=== PATIENT | male | born 1960 | race African-American/Black ===

== ENCOUNTER 2018-11-03 09:11 | Emergency (ER) | payer SELFPAY ==
[2018-11-03] MEDS ORDERED: NA CHLORIDE 0.9% 1,000 ML ONE (10:40)
[2018-11-03 10:48] LABS: Absolute Lymphocytes (CBC) 1.7 K/uL (0.7-4.9); Basophils % 0.5 % (0-1.3); Lymphocytes % 23.9 % (15.3-44.8); MPV 7.4 fL (7.6-11.3); RBC Red Blood Cell Count 4.84 M/uL (4.33-5.43)
[2018-11-03 10:52] LABS: Protime INR 1.09
--- NOTE | 2018-11-03 11:02 | RAD REPORT ---
EXAM DESCRIPTION: CT - Head Brain Wo Cont - 11/03/2018 10:48 am CLINICAL HISTORY: Dizziness COMPARISON: None TECHNIQUE: Computed axial tomography of the head was obtained. IV contrast was not requested. All CT scans are performed using dose optimization technique as appropriate and may include automated exposure control or mA/KV adjustment according to patient size. FINDINGS: Large low-density area is present within probably the right temporal lobe extending into t he right parietal lobe. There is shift of midline structures 12 millimeters to the left. Right tempor al horn of the lateral ventricle is compressed. Fluid within the sinuses/ mastoids is not seen. IMPRESSION: Large low-density area within the right cerebrum likely representing a mass with vasogen ic edema. Subfalcine herniation present Karen from the emergency room notified 10:50 a.m. 11/03/2018
[2018-11-03 11:13] LABS: ALT/SGPT 17 U/L (12-78); AST/SGOT 11 U/L (15-37); Albumin 3.4 g/dL (3.4-5.0); Alkaline Phosphatase 52 U/L (45-117); BUN Blood Urea Nitrogen 13 mg/dL (7-18); Bicarbonate 27 mmol/L (21-32); Bilirubin Direct 0.1 mg/dL (0-0.2); Bilirubin Total 0.6 mg/dL (0.2-1.0); Glucose Level 94 mg/dL (74-106); Lipase 89 U/L (73-393); Magnesium 2.1 mg/dL (1.8-2.4); NT PRO-BNP 196 pg/mL (<125); Protein, Total 7.3 g/dL (6.4-8.2); Sodium Level 142 mmol/L (136-145); Troponin (Emerg Dept Use Only) < 0.02 ng/mL (0.0-0.045)
[2018-11-03] MEDS ORDERED: dexAMETHasone 10 MG/ML VIAL ONE (11:18)
--- NOTE | 2018-11-03 11:31 | EKG ---
Test Date: 2018-11-03 Test Time: 10:39:05 Visual Education Director: NINFA MEASUREMENT RESULTS: Intervals: Rate: 51 IA: 188 QRSD: 90 QT: 442 QTc: 407 [place]: P: 19 IA: 188 QRS: 88 T: -39 INTERPRETIVE STATEMENTS: Sinus bradycardia Voltage criteria for left ventricular hypertrophy T wave abnormality, consider inferior ischemia Abnormal ECG No previous ECG available for comparison Electronically Signed On 11-03-18 11:30:34 CDT by Lauri More
--- NOTE | 2018-11-03 11:34 | RAD REPORT ---
EXAM DESCRIPTION: RAD - Chest Single View - 11/03/2018 11:21 am CLINICAL HISTORY: COUGH Chest pain. COMPARISON: CHEST PA AND LAT 2 VIEW dated 02/27/2012 FINDINGS: Portable technique limits examination quality. The lungs are grossly clear. The heart is upper limit of normal in size. No displaced fractures. IMPRESSION: No acute intrathoracic process suspected.
--- NOTE | 2018-11-03 11:44 | EDPHYS ---
Physician Documentation [facility] Name: Sascha Wing Age: 58 yrs Sex: Male : 1960 Arrival Date: 11/03/2018 Time: 09:15 Bed 7 Private MD: Nona Howell C ED Physician Kennedy Forte HPI: 11/03 10:30 This 58 yrs old Black Male presents to ER via Ambulatory with complaints of Headache, andrea General Weakness. 10:30 The patient complains of pain to the top of head, forehead, right judaism, left frontal andrea area, left side of the back of head, right frontal area and right temporal area. The patient describes the headache as aching. Onset: The symptoms/episode began/occurred 14 day(s) ago. Associated signs and symptoms: Pertinent positives: dizziness, weakness. Severity of symptoms: At its worst the pain was mild, moderate, in the emergency department the pain is unchanged. Headache History: Denies prior headaches. The symptoms are alleviated by nothing. the symptoms are aggravated by nothing. The patient has not experienced similar symptoms in the past. Historical: - Allergies: 09:20 No Known Allergies; sv - Home Meds: 11:55 amlodipine oral [Active]; Lisinopril Oral [Active]; tw2 - PMHx: 11:55 Hypertension; tw2 - Immunization history:: Adult Immunizations. - Family history:: not pertinent. - Social history:: Smoking status: Patient uses tobacco products, smokes one pack cigarettes per day. - Ebola Screening: : Patient denies travel to an Ebola-affected area in the 21 days before illness onset. ROS: 10:33 Constitutional: Negative for fever, chills, and weight loss, Eyes: Negative for injury, andrea pain, redness, and discharge, ENT: Negative for injury, pain, and discharge, Neck: Negative for injury, pain, and swelling, Cardiovascular: Negative for chest pain, palpitations, and edema, Respiratory: Negative for shortness of breath, cough, wheezing, and pleuritic chest pain, Abdomen/GI: Negative for abdominal pain, nausea, vomiting, diarrhea, and constipation, Back: Negative for injury and pain, : Negative for injury, bleeding, discharge, and swelling, MS/Extremity: Negative for injury and deformity, Skin: Negative for injury, rash, and discoloration, Psych: Negative for depression, anxiety, suicide ideation, homicidal ideation, and hallucinations, Allergy/Immunology: Negative for hives, rash, and allergies, Endocrine: Negative for neck swelling, polydipsia, polyuria, polyphagia, and marked weight changes, Hematologic/Lymphatic: Negative for swollen nodes, abnormal bleeding, and unusual bruising. 10:33 Neuro: Positive for gait disturbance, weakness. Exam: 10:33 Constitutional: This is a well developed, well nourished patient who is awake, alert, andrea and in no acute distress. Head/Face: Normocephalic, atraumatic. Eyes: Pupils equal round and reactive to light, extra-ocular motions intact. Lids and lashes normal. Conjunctiva and sclera are non-icteric and not injected. Cornea within normal limits. Periorbital areas with no swelling, redness, or edema. ENT: Nares patent. No nasal discharge, no septal abnormalities noted. Tympanic membranes are normal and external auditory canals are clear. Oropharynx with no redness, swelling, or masses, exudates, or evidence of obstruction, uvula midline. Mucous membranes moist. Neck: Trachea midline, no thyromegaly or masses palpated, and no cervical lymphadenopathy. Supple, full range of motion without nuchal rigidity, or vertebral point tenderness. No Meningismus. Chest/axilla: Normal chest wall appearance and motion. Nontender with no deformity. No lesions are appreciated. Cardiovascular: Regular rate and rhythm with a normal S1 and S2. No gallops, murmurs, or rubs. Normal PMI, no JVD. No pulse deficits. Respiratory: Lungs have equal breath sounds bilaterally, clear to auscultation and percussion. No rales, rhonchi or wheezes noted. No increased work of breathing, no retractions or nasal flaring. Abdomen/GI: Soft, non-tender, with normal bowel sounds. No distension or tympany. No guarding or rebound. No evidence of tenderness throughout. Back: No spinal tenderness. No costovertebral tenderness. Full range of motion. Male : Normal genitalia with no discharge or lesions. Skin: Warm, dry with normal turgor. Normal color with no rashes, no lesions, and no evidence of cellulitis. MS/ Extremity: Pulses equal, no cyanosis. Neurovascular intact. Full, normal range of motion. Neuro: Awake and alert, GCS 15, oriented to person, place, time, and situation. Cranial nerves II-XII grossly intact. Motor strength 5/5 in all extremities. Sensory grossly intact. Cerebellar exam normal. Normal gait. Psych: Awake, alert, with orientation to person, place and time. Behavior, mood, and affect are within normal limits. Vital Signs: 09:20 BP 147 / 94; Pulse 61; Resp 16; Temp 98.3; Pulse Ox 97% ; Weight 83.46 kg; Height 6 ft. sv 2 in. (187.96 cm); Pain 2/10; 10:00 BP 152 / 87; Pulse 57; Resp 17; Pulse Ox 98% on R/A; tw2 10:59 BP 160 / 80; Pulse 53; Resp 18; Pulse Ox 95% on R/A; tw2 12:00 BP 153 / 78; Pulse 54; Resp 16; Pulse Ox 97% ; bp 12:45 BP 157 / 89; Pulse 51; Resp 15; Temp 98.5; Pulse Ox 97% ; bp 09:20 Body Mass Index 23.62 (83.46 kg, 187.96 cm) sv MDM: 09:36 Patient medically screened. [facility] 10:35 Data reviewed: vital signs, nurses notes, lab test result(s), EKG, radiologic studies, [facility] CT scan, MRI, plain films. 11/03 10:25 Order name: Basic Metabolic Panel [facility] 11/03 10:25 Order name: CBC with Diff [facility] 11/03 10:25 Order name: LFT's [facility] 11/03 10:25 Order name: Magnesium [facility] 11/03 10:25 Order name: NT PRO-BNP [facility] 11/03 10:25 Order name: PT-INR [facility] 11/03 10:25 Order name: Troponin (emerg Dept Use Only) [facility] 11/03 10:25 Order name: Lipase [facility] 11/03 10:25 Order name: Urine Culture [facility] 11/03 10:50 Order name: Urine Dipstick--Ancillary (enter results) co 11/03 10:57 Order name: CBC with Automated Diff; Complete Time: 11:04 EDPR 11/03 11:03 Order name: Protime (+INR); Complete Time: 11:04 [facility] 11/03 11:14 Order name: Basic Metabolic Panel; Complete Time: 12:03 EDPR 11/03 11:14 Order name: Liver (Hepatic) Function; Complete Time: 12:03 [facility] 11/03 10:25 Order name: XRAY Chest (1 view) [facility] 11/03 10:25 Order name: EKG; Complete Time: 10:27 [facility] 11/03 10:25 Order name: Cardiac monitoring; Complete Time: 10:32 [facility] 11/03 10:25 Order name: EKG - Nurse/Tech; Complete Time: 10:37 [facility] 11/03 10:25 Order name: IV Saline Lock; Complete Time: 10:41 [facility] 11/03 10:25 Order name: Labs collected and sent; Complete Time: 10:41 [facility] 11/03 10:25 Order name: CT Head Brain wo Cont [facility] 11/03 10:25 Order name: MRI Stroke Protocol [facility] 11/03 11:14 Order name: Troponin (Emerg Dept Use Only); Complete Time: 12:03 [facility] 11/03 11:14 Order name: NT PRO-BNP; Complete Time: 12:03 [facility] 11/03 11:15 Order name: Magnesium; Complete Time: 12:03 [facility] 11/03 11:15 Order name: Lipase; Complete Time: 12:03 [facility] 11/03 12:31 Order name: Urine Dipstick-Ancillary [facility] 11/03 10:25 Order name: O2 Per Protocol; Complete Time: 10:33 [facility] 11/03 10:25 Order name: O2 Sat Monitoring; Complete Time: 10:33 [facility] 11/03 10:25 Order name: Urine Dipstick-Ancillary (obtain specimen); Complete Time: 10:41 [facility] 11/03 11:04 Order name: Seizure Precautions; Complete Time: 11:20 [facility] Administered Medications: 10:35 Drug: NS 0.9% 1000 ml Route: IV; Rate: 125 ml/hr; Site: right antecubital; bp 12:58 Follow up: IV Status: Infusion continued upon transfer bp 11:19 Drug: Decadron - Dexamethasone 10 mg Route: IVP; Site: right antecubital; bp 12:25 Follow up: Response: No adverse reaction bp 12:25 Drug: Keppra 1000 mg Route: IV; Rate: per protocol; Site: right antecubital; bp 12:58 Follow up: IV Status: Completed infusion; IV Intake: 100ml bp Disposition: 11/03/18 11:08 Transfer ordered to [facility]. Diagnosis are Ataxic gait, Headache, Cerebral edema - brain mass, 12 mm right to left shift. - Reason for transfer: Higher level of care. - Accepting physician is to [facility]. - Condition is Fair. - Problem is new. - Symptoms have improved. Signatures: Dispatcher [employer] Constance Griffith RN RN Kennedy Morales MD MD cha Wise, Tara RN RN tw2 Artemio Cesar RN RN bp Corrections: (The following items were deleted from the chart) 13:00 11:08 11/03/2018 11:08 Transfer ordered to [facility]. Diagnosis is bp Ataxic gait; Headache; Cerebral edema - brain mass, 12 mm right to left shift. Reason for transfer: Higher level of care. Accepting physician is to [facility]. Condition is Fair. Problem is new. Symptoms have improved. andrea
--- NOTE | 2018-11-03 11:44 | ER ---
Nurse's Notes [facility] Name: Sascha Wing Age: 58 yrs Sex: Male : 1960 Arrival Date: 11/03/2018 Time: 09:15 Bed 7 Private MD: Nona Howell C Diagnosis: Ataxic gait;Headache;Cerebral edema-brain mass, 12 mm right to left shift Presentation: 11/03 09:18 Presenting complaint: Patient states: intermittent headache x 2 weeks and had "a bad sv tooth pulled last week". Spouse states he has been dragging his left foot and unable to hold things in his left hand, fatigue. Pt saw Dr Howell today and he sent him here. Transition of care: patient was not received from another setting of care. Onset of symptoms was October 2018. Risk Assessment: Do you want to hurt yourself or someone else? Patient reports no desire to harm self or others. Care prior to arrival: None. 09:18 Method Of Arrival: Ambulatory sv 09:18 Acuity: LEIGH 3 sv 11:57 Initial Sepsis Screen: Does the patient meet any 2 criteria? No. Patient's initial tw2 sepsis screen is negative. Does the patient have a suspected source of infection? No. Patient's initial sepsis screen is negative. Triage Assessment: 09:18 Headache History: The patient has had previous headaches and this one is different than sv previous episodes, and this one is more severe than previous episodes. General: Appears in no apparent distress. uncomfortable, Behavior is calm, cooperative, appropriate for age. Pain: Complains of pain in forehead Pain currently is 2 out of 10 on a pain scale. Pain began 2 weeks ago. Neuro: Level of Consciousness is awake, alert, obeys commands, Oriented to person, place, time, situation, Moves all extremities. Full function Gait is steady, Speech is normal, Facial symmetry appears normal, Reports headache frontal area, weakness. Respiratory: Respiratory effort is even, unlabored, Respiratory pattern is regular, symmetrical. 11:57 Pain: Also complains of weakness. tw2 Historical: - Allergies: 09:20 No Known Allergies; sv - Home Meds: 11:55 amlodipine oral [Active]; Lisinopril Oral [Active]; tw2 - PMHx: 11:55 Hypertension; tw2 - Immunization history:: Adult Immunizations. - Family history:: not pertinent. - Social history:: Smoking status: Patient uses tobacco products, smokes one pack cigarettes per day. - Ebola Screening: : Patient denies travel to an Ebola-affected area in the 21 days before illness onset. Screenin:56 Abuse screen: Denies threats or abuse. Nutritional screening: No deficits noted. tw2 Tuberculosis screening: No symptoms or risk factors identified. Fall Risk None identified. Assessment: 09:30 General: Appears in no apparent distress. slender, Behavior is calm, cooperative, tw2 appropriate for age, Smells of cigarette smoke. Pain: Complains of pain in right temporal area and right frontal area and right gnosticism and top of head. Neuro: Level of Consciousness is awake, alert, obeys commands, Oriented to person, place, time, situation. Cardiovascular: Heart tones S1 S2 Patient's skin is warm and dry. Respiratory: Airway is patent Respiratory effort is even, unlabored, Respiratory pattern is regular, symmetrical, Breath sounds are clear bilaterally. GI: No signs and/or symptoms were reported involving the gastrointestinal system. Abdomen is flat, Bowel sounds present X 4 quads. : No signs and/or symptoms were reported regarding the genitourinary system. EENT: Reports "i had a tooth pulled on the upper side of my mouth that caused the headaches, but i still feel weak" spouse states "he is just off balanced.. 11:00 Reassessment: Patient appears in no apparent distress at this time. No changes from tw2 previously documented assessment. Patient and/or family updated on plan of care and expected duration. Pain level reassessed. Patient is alert, oriented x 3, equal unlabored respirations, skin warm/dry/pink. 11:58 Reassessment: pt in in MRI at this time, not available for VS. tw2 12:25 Reassessment: PT RETURNED FROM MRI. bp 12:57 Reassessment: REPORT TO EMS, PT CELESTE. bp Vital Signs: 09:20 BP 147 / 94; Pulse 61; Resp 16; Temp 98.3; Pulse Ox 97% ; Weight 83.46 kg; Height 6 ft. sv 2 in. (187.96 cm); Pain 2/10; 10:00 BP 152 / 87; Pulse 57; Resp 17; Pulse Ox 98% on R/A; tw2 10:59 BP 160 / 80; Pulse 53; Resp 18; Pulse Ox 95% on R/A; tw2 12:00 BP 153 / 78; Pulse 54; Resp 16; Pulse Ox 97% ; bp 12:45 BP 157 / 89; Pulse 51; Resp 15; Temp 98.5; Pulse Ox 97% ; bp 09:20 Body Mass Index 23.62 (83.46 kg, 187.96 cm) sv ED Course: 09:15 Patient arrived in ED. ag5 09:16 Nona Howell MD is Private Physician. ag5 09:20 Triage completed. sv 09:20 Arm band placed on. sv 09:21 Bed in low position. Side rails up X2. Adult w/ patient. Seizure precautions initiated. tw2 manager health on. Pulse ox on. NIBP on. 09:22 Oly Magaña RN is Primary Nurse. tw2 09:36 Kennedy Forte MD is Attending Physician. andrea 10:37 Initial lab(s) drawn, by wv, sent to lab. Inserted saline lock: 20 gauge in right dh3 antecubital area, using aseptic technique. Blood collected. 10:41 Urine collected: clean catch specimen, clear. dh3 10:44 EKG done, by injection mold tooling technician. reviewed by Kennedy Forte MD. at1 11:16 X-ray completed. Portable x-ray completed in exam room. jr1 11:54 Awaiting: unsuccessful attempt to call report to [facility] at this time. tw2 12:58 No provider procedures requiring assistance completed. Patient transferred, IV remains bp in place. Administered Medications: 10:35 Drug: NS 0.9% 1000 ml Route: IV; Rate: 125 ml/hr; Site: right antecubital; bp 12:58 Follow up: IV Status: Infusion continued upon transfer bp 11:19 Drug: Decadron - Dexamethasone 10 mg Route: IVP; Site: right antecubital; bp 12:25 Follow up: Response: No adverse reaction bp 12:25 Drug: Keppra 1000 mg Route: IV; Rate: per protocol; Site: right antecubital; bp 12:58 Follow up: IV Status: Completed infusion; IV Intake: 100ml bp Intake: 12:58 IV: 100ml; Total: 100ml. bp Outcome: 11:08 ER care complete, transfer ordered by . andrea 12:58 Transferred by ground EMS to [facility] [place], Transfer form completed. bp 12:58 Condition: stable 12:58 Instructed on the need for transfer. 13:00 Patient left the ED. bp Signatures: Constance Barraza, RN RN Kennedy Morales MD MD cha Ringgold, Jennifer jr1 Shavon Covington, traveling freight agent EKG Tat1 Oly Magaña RN RN tw2 Jeanine Barksdale 3 Artemio Cesar RN RN Aimee Vela ag5 Corrections: (The following items were deleted from the chart) 11:58 11:57 Reassessment: Patient appears in no apparent distress at this time. No changes tw2 from previously documented assessment. Patient and/or family updated on plan of care and expected duration. Pain level reassessed. Patient is alert, oriented x 3, equal unlabored respirations, skin warm/dry/pink. tw2
[2018-11-03] MEDS ORDERED: levETIRAcetam 1,000 MG in NA CHLORIDE 0.9% 100 ML IV ONE (11:45)
--- NOTE | 2018-11-03 12:23 | RAD REPORT ---
EXAM DESCRIPTION: MRI - Brain W/Wo Cont - 11/03/2018 12:09 pm CLINICAL HISTORY: Dizziness COMPARISON: November 03, [address] TECHNIQUE: Axial, sagittal, and coronal magnetic images of the brain were obtained. 20 cc MultiHance administered intravenously FINDINGS: 5.8 centimeter peripherally enhancing mass is present within the right temporal lobe. Port ions of the center do not enhance which likely indicate necrosis. Large amount of surrounding vasogen ic edema. Compression of the right lateral ventricle and right aspect of the brainstem. Shift of the midline st ructures 12 millimeters towards the left. IMPRESSION: 5.8 centimeter enhancing right temporal lobe mass with large amount of surrounding vasog enic edema suspicious for glioblastoma multiform neoplasm Subfalcine herniation
[2018-11-03 12:28] LABS: Urine Blood NEGATIVE (NEG); Urine Glucose NEGATIVE (NEG); Urine Protein NEGATIVE (NEG); Urine Specific Gravity 1.015 (1.005-1.030)
[2018-11-03 13:11] VITALS: O2SAT 97
[2018-11-03 13:13] VITALS: BP 157/89; TEMP 98.5
== END 2018-11-03 13:00 | disposition short-term general hospital (02) ==
LOC: ER 09:11
DX: G93.6 Cerebral edema (principal); G93.89 Other specified disorders of brain; R26.0 Ataxic gait; I10 Essential (primary) hypertension; F17.210 Nicotine dependence, cigarettes, uncomplicated
CPT/HCPCS: 36415; 70450; 70553; 71045; 80048; 80076; 81003; 83690; 83735; 83880; 84484; 85025; 85610; 87086; 87088; 93005; 96361; 96365; 96375; 99285; A9577; J1100; J1953; J7030

== ENCOUNTER 2021-05-05 09:22 | Inpatient (IN) | payer OTHER, BC ==
--- OUTSIDE RECORDS SUMMARY | 2021-05-05 09:30 | XMS REPORT | Continuity of Care Document ---
:1960 Author Organization [facility] t Address [address] [place] [address] Care Team Providers Name Role Phone Alyce Howell MD Primary Care Physician CODY DEGROOT Attending Clinician Unavailable Cody Degroot MD Attending Clinician CODY DEGROOT Attending Clinician Unavailable SOLEDAD YADAV Attending Clinician Unavailable ROBERT CEE Attending Clinician Unavailable MARY MULLEN Attending Clinician Unavailable Addie FITZPATRICK Attending Clinician JOVITA PITTS Attending Clinician Unavailable ALICIA JAIME Admitting Clinician Unavailable JOVITA PITTS Admitting Clinician Unavailable Payers Payer Name Policy Type Policy Number Effective Date Expiration Date [place] gann CIGNA OON [id number] 2020 00:00:00 BCBS HMO [id number] 2016 BLUE/ESSENTIALS 00:00:00 NETWORK OPEN ACCESS [id number] - CIGNA [facility] [id number] 2018 IN-AREA POS - BCBS 00:00:00 CVCP-CIGNA PPO [id number] CIGNA HMO/POS/OPEN [id number] 2017 ACCESS 00:00:00 Problems Condition Condition Condition Status Onset Resolution Last Treating Co mments Source Name Details Category Date Date Treatment Clinician Date 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 [facility] 02-24 [facility] (HCCode) (HCCode) 00:00: of 00 Medicin e [place], [place], Disease Active 2018-02 [facility] brain brain 02-21 [facility] 00:00: of 00 Medicin e Allergies, Adverse Reactions, Alerts Allergy Allergy Status Severity Reaction(s) Onset Inactive Treating Comm ents Source Name Type Date Date Clinician NO KNOWN Allergy Active [facility] Social History Social Habit Start Date Stop Date Quantity Comments Source Exposure to Not sure [facility] SARS-CoV-2 of Medicine (event) Alcohol intake 2021-04-11 2021-04-11 Ex-drinker [facility]ge 00:00:00 00:00:00 (finding) of Medicine Tobacco use and 2020-09-13 2020-09-13 Smokeless tobacco [facility] [employer] exposure 00:00:00 00:00:00 non-user of Medicine Tobacco Comment 2020-09-13 2020-09-13 cigarette a day [facility] or College 00:00:00 00:00:00 of Medicine Sex [birth year] [facility] 00:00:00 00:00:00 of Medicine Smoking Status Start Date Stop Date Source Light tobacco smoker 2020-09-13 00:00:00 [facility] Former smoker 2020-03-29 00:00:00 2020-03-29 00:00:00 [facility] ollege [facility] Current some day smoker 2018-11-19 00:00:00 [facility] Medications Ordered Filled Start Stop Current Ordering Indication Dosage Frequency Signature Comments Components Source Medication Medication Date Date Medication? Clinician (SIG) Name Name Tamsulosin Yes .4mg Take 0.4 [place] [facility] HCl 0.4 MG 2-22 mg by College CAPS 15:44: mouth. of 44 Medicin e lisinopril Yes 5mg Take 5 mg [facility] (PRINIVIL, 2-22 by mouth. [facility] ZESTRIL) 5 15:44: of MG tablet 44 Medicin e dexamethaso Yes Take 2mg [facility] 2-22 (one) pill [facility] (DECADRON) 00:00: in the of 2 MG tablet 00 morning Medic in and 2mg e (one) pill in the afternoon famotidine Yes TAKE 1 [facility] (PEPCID) 20 2-22 TABLET BY [facility] lege MG tablet 00:00: MOUTH of 00 TWICE A Medicin DAY e famotidine 2021- No TAKE 1 [facility] (PEPCID) 20 2-22 02-22 TABLET BY Co llege MG tablet 00:00: 00:00 MOUTH of 00 :00 TWICE A Medicin DAY e Tamsulosin Yes .4mg Take 0.4 [place] [facility] HCl 0.4 MG 1-25 mg by College CAPS 12:42: mouth. of 56 Medicin e lisinopril Yes 5mg Take 5 mg [facility] (PRINIVIL, 1-25 by mouth. [facility]giain ZESTRIL) 5 12:42: of MG tablet 56 Medicin e Tamsulosin 2020-02 Yes .4mg Take 0.4 [place] [facility] HCl 0.4 MG 2-06 mg by [facility] CAPS 09:37: mouth. of 43 Medicin e lisinopril 2020-02 Yes 5mg Take 5 mg [facility] (PRINIVIL, 2-06 by mouth. [facility] ZESTRIL) 5 09:37: of MG tablet 43 Medicin e Tamsulosin 2020-02 Yes .4mg Take 0.4 [place] [facility] HCl 0.4 MG 2-06 mg by College CAPS 09:37: mouth. of 43 Medicin e lisinopril 2020-02 Yes 5mg Take 5 mg [facility] (PRINIVIL, 2-06 by mouth. [facility] ZESTRIL) 5 09:37: of MG tablet 43 Medicin e dexamethaso 2020-02- No Take 4 [place] ne -08 12-08 Tablets by [facility] ([facility]) 00:00: 05:59 mouth two o f 2 MG tablet 00 :00 times Medicin daily for e 3 days, THEN 2 Tablets two times daily for 4 days, THEN 1 Tablet two times daily for 22 days. dexamethaso 2020-02 Yes Take 4mg [facility] 1-05 (two) [facility] ([facility]) 00:00: pills in of 2 MG tablet 00 the Medicin morning e and 2mg (one) pill in the afternoon dexamethaso 2020-02 Yes Take 4mg [facility] 1-05 (two) [facility] ([facility]) 00:00: pills in of 2 MG tablet 00 the Medicin morning e and 2mg (one) pill in the afternoon dexamethaso 2020-02 Yes Take 4mg [facility] 1-05 (two) [facility] ([facility]) 00:00: pills in of 2 MG tablet 00 the Medicin morning e and 2mg (one) pill in the afternoon dexamethaso 2020-02- No Take 4mg [facility] 1-05 - (two) [facility] ([facility]) 00:00: 00:00 pills in of 2 MG tablet 00 :00 the Medicin morning e and 2mg (one) pill in the afternoon dexamethaso 2020-02 Yes 1mg Take 1 mg [facility] 1 MG 0-21 by mouth College TABS 00:00: two times of 00 daily. Medicin e famotidine 2020-02 Yes TAKE 1 [facility] (PEPCID) 20 0-21 TABLET BY [facility] MG tablet 00:00: MOUTH of 00 TWICE A Medicin DAY e dexamethaso 2020-02 Yes 1mg Take 1 mg [facility] 1 MG 0-21 by mouth College TABS 00:00: two times of 00 daily. Medicin e famotidine 2020-02 Yes TAKE 1 [facility] (PEPCID) 20 0-21 TABLET BY [facility] MG tablet 00:00: MOUTH of 00 TWICE A Medicin DAY e dexamethaso 2020-02 Yes 1mg Take 1 mg [facility] 1 MG 0-21 by mouth College TABS 00:00: two times of 00 daily. Medicin e famotidine 2020-02 Yes TAKE 1 [facility] (PEPCID) 20 0-21 TABLET BY [facility] MG tablet 00:00: MOUTH of 00 TWICE A Medicin DAY e dexamethaso 2020-02 Yes 1mg Take 1 mg [facility] 1 MG 0-21 by mouth College TABS 00:00: two times of 00 daily. Medicin e famotidine 2020-02- No TAKE 1 [facility] (PEPCID) 20 0-21 02-22 TABLET BY Co llege MG tablet 00:00: 00:00 MOUTH of 00 :00 TWICE A Medicin DAY e lomustine Yes Take 180 [facility] (CEENU) 40 7-28 mg (take Colle ge MG capsule 00:00: four 40mg of 00 and two Medicin 10mg e pills) every 6 weeks lomustine Yes Take 180 [facility] (CEENU) 40 7-28 mg (take Colle ge MG capsule 00:00: four 40mg of 00 and two Medicin 10mg e pills) every 6 weeks lomustine Yes Take 180 [facility] (CEENU) 40 7-28 mg (take Colle ge MG capsule 00:00: four 40mg of 00 and two Medicin 10mg e pills) every 6 weeks lomustine Yes Take 180 [facility] (CEENU) 40 7-28 mg (take Colle ge MG capsule 00:00: four 40mg of 00 and two Medicin 10mg e pills) every 6 weeks acetaminoph Yes 1{tbl} Take 1 [facility]-codeine 7-06 Tablet by [facility] (TYLENOL 00:00: mouth of #3) 300-30 00 every 4 Medici n MG per hours as e tablet needed for Pain. acetaminoph Yes 1{tbl} Take 1 [facility] en-codeine 7-06 Tablet by [facility] (TYLENOL 00:00: mouth of #3) 300-30 00 every 4 Medici n MG per hours as e tablet needed for Pain. acetaminoph Yes 1{tbl} Take 1 [facility] en-codeine 7-06 Tablet by [facility] (TYLENOL 00:00: mouth of #3) 300-30 00 every 4 Medici n MG per hours as e tablet needed for Pain. acetaminoph Yes 1{tbl} Take 1 [facility] en-codeine 7-06 Tablet by [facility] (TYLENOL 00:00: mouth of #3) 300-30 00 every 4 Medici n MG per hours as e tablet needed for Pain. gabapentin Yes 100mg Take 1 [facility] (NEURONTIN) 7-03 capsule by Co llege 100 MG 00:00: mouth 3 of capsule 00 times Medicin daily. e gabapentin 1-0 Yes 100mg Take 1 [facility] (NEURONTIN) 7-03 capsule by Co llege 100 MG 00:00: mouth 3 of capsule 00 times Medicin daily. e gabapentin 2021-0 Yes 100mg Take 1 [facility] (NEURONTIN) 7-03 capsule by Co llege 100 MG 00:00: mouth 3 of capsule 00 times Medicin daily. e gabapentin 2021-0 Yes 100mg Take 1 [facility] (NEURONTIN) 7-03 capsule by Co llege 100 MG 00:00: mouth 3 of capsule 00 times Medicin daily. e dexamethaso 2020-0 Yes Take 1 tab [facility] ne 6-15 daily College (DECADRON) 00:00: during of 4 MG tablet 00 chemothera Me dicin py to help e prevent nausea dexamethaso 2020-0 Yes Take 1 tab [facility] ne 6-15 daily College (DECADRON) 00:00: during of 4 MG tablet 00 chemothera Me dicin py to help e prevent nausea dexamethaso 2020-0 Yes Take 1 tab [facility] ne 6-15 daily College ([facility]) 00:00: during of 4 MG tablet 00 chemothera Me dicin py to help e prevent nausea dexamethaso 2020-0 Yes Take 1 tab [facility] ne 6-15 daily College ([facility]) 00:00: during of 4 MG tablet 00 chemothera Me dicin py to help e prevent nausea lisinopril 2020-0 Yes [facility] ([place], 4-26 College ZESTRI) 10 00:00: of MG tablet 00 Medicin e amlodipine 2020-0 Yes [facility] ([facility]) 5 4-26 College MG tablet 00:00: of 00 Medicin e lisinopril 2020-0 Yes [facility] (PRINIVIL, 4-26 [facility] ZESTRIL) 10 00:00: of MG tablet 00 Medicin e amlodipine 2020-0 Yes [facility] ([facility]) 5 4-26 College MG tablet 00:00: of 00 Medicin e lisinopril 2020-0 Yes [facility] (PRINIVIL, 4-26 [facility] ZESTRIL) 10 00:00: of MG tablet 00 Medicin e amlodipine Yes [facility] ([facility]) 5 4-26 College MG tablet 00:00: of 00 Medicin e lisinopril Yes [facility] (PRINIVIL, 4-26 [facility] ZESTRIL) 10 00:00: of MG tablet 00 Medicin e amlodipine Yes [facility] ([facility]) 5 4-26 College MG tablet 00:00: of 00 Medicin e lomustine Yes Take 180 [facility] (CEENU) 40 2-09 mg (take Colle ge MG capsule 00:00: four 40mg of 00 and two Medicin 10mg e pills) every 6 weeks Lomustine Yes Take 180 [facility] 10 MG CAPS 2-09 mg (take Colle ge 00:00: four 40mg of 00 and two Medicin 10mg e pills) every 6 weeks Lomustine Yes Take 180 [facility] 10 MG CAPS 2-09 mg (take Colle ge 00:00: four 40mg of 00 and two Medicin 10mg e pills) every 6 weeks Lomustine Yes Take 180 [facility] 10 MG CAPS 2-09 mg (take Colle ge 00:00: four 40mg of 00 and two Medicin 10mg e pills) every 6 weeks Lomustine Yes Take 180 [facility] 10 MG CAPS 2-09 mg (take Colle ge 00:00: four 40mg of 00 and two Medicin 10mg e pills) every 6 weeks Lomustine Yes Take 180 [facility] 10 MG CAPS 2-09 mg (take Colle ge 00:00: four 40mg of 00 and two Medicin 10mg e pills) every 6 weeks lomustine 2020- No Take 180 [place] [facility] (CEENU) 40 2-09 02-09 mg (take [facility] MG capsule 00:00: 00:00 four 40mg o f 00 :00 and two Medicin 10mg e pills) every 6 weeks Lomustine 2020- No Take 180 [place] [facility] 10 MG CAPS 2-09 02-09 mg (take Sisi ege 00:00: 00:00 four 40mg of 00 :00 and two Medicin 10mg e pills) every 6 weeks promethazin 2019-02 Yes 25mg Take 1 [facility] e 2-29 Tablet by [facility] (PHENERGAN) 00:00: mouth of 25 MG 00 every 6 Medicin tablet hours as e needed. dexamethaso 2019- Yes Take 1 tab [facility] ne 2-29 daily [facility] 00:[facility]: during of 4 MG tablet 00 chemothera Me dicin py to help e prevent nausea promethazin 2019-02 Yes 25mg Take 1 [facility] e 2-29 Tablet by [facility] (PHENERGAN) 00:00: mouth of 25 MG 00 every 6 Medicin tablet hours as e needed. dexamethaso 2019-02 Yes Take 1 tab [place] 2-29 daily [facility] ([facility]) 00:00: during of 4 MG tablet 00 chemothera Me dicin py to help e prevent nausea promethazin 2019-02 Yes 25mg Take 1 [facility] e 2-29 Tablet by [facility] (PHENERGAN) 00:00: mouth of 25 MG 00 every 6 Medicin tablet hours as e needed. promethazin 2019-02 Yes 25mg Take 1 [facility] e 2-29 Tablet by [facility] (PHENERGAN) 00:00: mouth of 25 MG 00 every 6 Medicin tablet hours as e needed. promethazin 2019-02 Yes 25mg Take 1 [facility] e 2-29 Tablet by [facility] (PHENERGAN) 00:00: mouth of 25 MG 00 every 6 Medicin tablet hours as e needed. promethazin 2019-02 Yes 25mg Take 1 [facility] e 2-29 Tablet by [facility] (PH[facility]GAN) 00:00: mouth of 25 MG 00 every 6 Medicin tablet hours as e needed. lomustine 2019-02 Yes Take 180 [facility] (CEENU) 40 1-19 mg (take Colle ge MG capsule 00:00: four 40mg of 00 and two Medicin 10mg e pills) every 6 weeks Lomustine 2019-02 Yes Take 180 [facility] 10 MG CAPS 1-19 mg (take Colle ge 00:00: four 40mg of 00 and two Medicin 10mg e pills) every 6 weeks lomustine 2019-02- No Take 180 [place] [facility] (CEENU) 40 1-19 02-09 mg (take [facility] MG capsule 00:00: 00:00 four 40mg o f 00 :00 and two Medicin 10mg e pills) every 6 weeks Lomustine 2019-02- No Take 180 [place] [facility] 10 MG CAPS 1-19 02-09 mg (take [facility]isi [facility]ge 00:00: 00:00 four 40mg of 00 :00 and two Medicin 10mg e pills) every 6 weeks Lomustine 2019-02 Yes Take 180 [facility] 100 MG CAPS 1-16 mg (take [facility] 00:00: one 100mg of 00 and two Medicin 40mg e pills) every 6 weeks lomustine 2019-02 Yes Take 180 [facility] (CEENU) 40 1-16 mg (take Colle ge MG capsule 00:00: one 100mg of 00 and two Medicin 40mg e pills) every 6 weeks dexamethaso 2019-02 Yes Take 1 tab [facility] ne 1-16 daily [facility] ([facility]) 00:00: during of 4 MG tablet 00 chemothera Me dicin py to help e prevent nausea promethazin 2019-02 Yes 25mg Take 1 [facility] e 1-16 Tablet by [facility] (PHENERGAN) 00:00: mouth of 25 MG 00 every 6 Medicin tablet hours as e needed. Lomustine 2019-02 Yes Take 180 [facility] 100 MG CAPS 1-16 mg (take [facility]isi [facility]ge 00:00: one 100mg of 00 and two Medicin 40mg e pills) every 6 weeks lomustine 2019-02 Yes Take 180 [facility] (CEENU) 40 1-16 mg (take Colle ge MG capsule 00:00: one 100mg of 00 and two Medicin 40mg e pills) every 6 weeks Lomustine 2019-02 Yes Take 180 [facility] 100 MG CAPS 1-16 mg (take [facility]isi ege 00:00: one 100mg of 00 and two Medicin 40mg e pills) every 6 weeks lomustine 2019-02 Yes Take 180 [facility] (CEENU) 40 1-16 mg (take Colle ge MG capsule 00:00: one 100mg of 00 and two Medicin 40mg e pills) every 6 weeks Lomustine 2019-02 Yes Take 180 [facility] 100 MG CAPS 1-16 mg (take [facility]ge 00:00: one 100mg of 00 and two Medicin 40mg e pills) every 6 weeks lomustine 2019-02 Yes Take 180 [facility] (CEENU) 40 1-16 mg (take Colle ge MG capsule 00:00: one 100mg of 00 and two Medicin 40mg e pills) every 6 weeks Lomustine 2019-02 Yes Take 180 [facility] 100 MG CAPS 1-16 mg (take [facility]ge 00:00: one 100mg of 00 and two Medicin 40mg e pills) every 6 weeks lomustine 2019-02 Yes Take 180 [facility] (CEENU) 40 1-16 mg (take Colle ge MG capsule 00:00: one 100mg of 00 and two Medicin 40mg e pills) every 6 weeks Lomustine 2019-02 Yes Take 180 [facility] 100 MG CAPS 1-16 mg (take [facility]isi [facility]ge 00:00: one 100mg of 00 and two Medicin 40mg e pills) every 6 weeks lomustine 2019-02 Yes Take 180 [facility] (CEENU) 40 1-16 mg (take Colle ge MG capsule 00:00: one 100mg of 00 and two Medicin 40mg e pills) every 6 weeks Lomustine 2019-02 Yes Take 180 [facility] 100 MG CAPS 1-16 mg (take [facility]ge 00:00: one 100mg of 00 and two Medicin 40mg e pills) every 6 weeks lomustine 2019-02 Yes Take 180 [facility] (CEENU) 40 1-16 mg (take Colle ge MG capsule 00:00: one 100mg of 00 and two Medicin 40mg e pills) every 6 weeks dexamethaso 2019-02 2020- No Take 1 tab [place] [facility] -02-15 daily [facility] (DECADRON) 00:00: 00:00 during of 4 MG tablet 00 :00 chemothera Me dicin py to help e prevent nausea promethazin 2019-02 2020- No 25mg Take 1 [place] [facility] e -16 02-15 Tablet by [facility] (PHENERGAN) 00:00: 00:00 mouth of 25 MG 00 :00 every 6 Medicin tablet hours as e needed. Tamsulosin 2019-02 Yes .4mg Take 0.4 [place] [facility] HCl 0.4 MG 0-14 mg by [facility] CAPS 14:20: mouth. of 39 Medicin e lisinopril 2019-02 Yes 5mg Take 5 mg [facility] (PRINIVIL, 0-14 by mouth. [facility] ZESTRIL) 5 14:20: of MG tablet 39 Medicin e Tamsulosin 2019-02 Yes .4mg Take 0.4 [place] [facility] HCl 0.4 MG 0-14 mg by College CAPS 14:20: mouth. of 39 Medicin e lisinopril 2019-02 Yes 5mg Take 5 mg [facility] (PRINIVIL, 0-14 by mouth. [facility] ordonez ZESTRIL) 5 14:20: of MG tablet 39 Medicin e Tamsulosin 2019-02 Yes .4mg Take 0.4 [place] HCl 0.4 MG 0-14 mg by College CAPS 14:20: mouth. of 39 Medicin e lisinopril 2019-02 Yes 5mg Take 5 mg [facility] (PRINIVIL, 0-14 by mouth. Sisi ANTOINESTRITim) 5 14:20: of MG tablet 39 Medicin e Tamsulosin 2019-02 Yes .4mg Take 0.4 [place] HCl 0.4 MG 0-14 mg by College CAPS 14:20: mouth. of 39 Medicin e lisinopril 2019-02 Yes 5mg Take 5 mg [facility] (PRINIVIL, 0-14 by mouth. Sisi mery ZESTRIL) 5 14:20: of MG tablet 39 Medicin e Temozolomid 2019-02 Yes Take 300 [facility] 100 MG 0-14 mg (three Colleg e CAPS 00:00: 100 mg) of 00 pills Medicin nightly e for 5 nights out of a 28 day cycle Temozolomid 2019-02 Yes Take 300 [facility] 100 MG 0-14 mg (three [facility] e CAPS 00:00: 100 mg) of 00 pills Medicin nightly e for 5 nights out of a 28 day cycle Temozolomid 2019-02 Yes Take 300 [facility] 100 MG 0-14 mg (three [facility] e CAPS 00:00: 100 mg) of 00 pills Medicin nightly e for 5 nights out of a 28 day cycle Temozolomid 2019-02 Yes Take 300 [facility] 100 MG 0-14 mg (three [facility] e CAPS 00:00: 100 mg) of 00 pills Medicin nightly e for 5 nights out of a 28 day cycle Temozolomid 2019-02 Yes Take 300 [facility] 100 MG 0-14 mg (three [facility] e CAPS 00:00: 100 mg) of 00 pills Medicin nightly e for 5 nights out of a 28 day cycle Temozolomid 2020-1 Yes Take 300 [facility] 100 MG 0-14 mg (three [facility] e CAPS 00:00: 100 mg) of 00 pills Medicin nightly e for 5 nights out of a 28 day cycle Temozolomid 2020-1 Yes Take 300 [facility] 100 MG 0-14 mg (three [facility] e CAPS 00:00: 100 mg) of 00 pills Medicin nightly e for 5 nights out of a 28 day cycle Temozolomid 2020-1 Yes Take 300 [facility] 100 MG 0-14 mg (three [facility] e CAPS 00:00: 100 mg) of 00 pills Medicin nightly e for 5 nights out of a 28 day cycle Tamsulosin 2020-0 Yes .4mg Take 0.4 [place] [facility] HCl 0.4 MG 9-16 mg by College CAPS 17:33: mouth. of 01 Medicin e lisinopril 2020-0 Yes 5mg Take 5 mg [facility] (PRINIVIL, 9-16 by mouth. Sisi mery REYNA) 5 17:33: of MG tablet 01 Medicin e dexamethaso 2020-0 Yes Take 1 tab [place] 9-16 daily [facility] ([facility]) 00:00: during of 4 MG tablet 00 chemother Me dicin py to help e prevent nausea promethazin 2020-0 Yes 25mg Take 1 Tab [place] [facility] 9-16 by mouth [facility] (PHENERGAN) 00:00: every 6 of 25 MG 00 hours as Medicin tablet needed. e dexamethaso 2020-0 Yes Take 1 tab [place] 9-16 daily [facility] ([facility]) 00:00: during of 4 MG tablet 00 chemothera Me dicin py to help e prevent nausea promethazin 2020-0 Yes 25mg Take 1 Tab [facility] e 9-16 by mouth College (PHENERGAN) 00:00: every 6 of 25 MG 00 hours as Medicin tablet needed. e dexamethaso 2020-0 2020- No Take 1 tab [place] 9-16 11-16 daily [facility] ([facility]) 00:00: 00:00 during of 4 MG tablet 00 :00 chemothera Me dicin py to help e prevent nausea promethazin 2020-0 2020- No 25mg Take 1 Tab [facility] e 9-16 11-16 by mouth College (PHENERG) 00:00: 00:00 every 6 of 25 MG 00 :00 hours as Medicin tablet needed. e dexamethaso 2020-0 Yes Take 1 tab [facility] ne 8-19 daily [facility] ([facility]) 00:00: during [facility] 4 [facility] dexamethaso 2020-0 2020- No Take 1 tab [place] 8-19 09-16 daily [facility] ([facility]) 00:00: 00:00 during [facility] 4 [facility] Tamsulosin 2020-0 Yes .4mg Take 0.4 [place] HCl 0.4 MG 7-22 mg by College CAPS 16:31: mouth. of 15 Medicin e lisinopril 2020-0 Yes 5mg Take 5 mg [facility] ([facility]INIVIL, 7-22 by mouth. [facility]isi [facility] ZESTRIL) 5 16:31: of MG tablet 15 Medicin e Tamsulosin 2020-0 Yes .4mg Take 0.4 [place] HCl 0.4 MG 7-22 mg by College CAPS 16:31: mouth. of 15 Medicin e lisinopril 2020-0 Yes 5mg Take 5 mg [facility] ([facility]IL, 7-22 by mouth. [facility]isi [facility]ery ZESTRIL) 5 16:31: of MG tablet 15 Medicin e dexamethaso 2020-0 Yes Take 1 tab [facility] ne 7-22 daily [facility] ([facility]) 00:00: during of 4 MG tablet 00 [facility] dicin py to help e prevent nausea dexamethaso 2020-0 2020- No Take 1 tab [place] 7-22 08-19 daily [facility] ([facility]) 00:00: 00:00 during of 4 MG tablet 00 :00 [facility] dicin py to help e prevent nausea Tamsulosin 2020-0 Yes .4mg Take 0.4 [place] HCl 0.4 MG 6-24 mg by College CAPS 16:30: mouth. of 09 Medicin e lisinopril 2020-0 Yes 5mg Take 5 mg [facility] ([facility], 6-24 by mouth. [facility] egiain ZESTRIL) 5 16:30: of MG tablet 09 Medicin e dexamethaso 2020-0 Yes Take 1 tab [facility] ne 6-24 daily College (JANAD) 00:00: during of 4 MG tablet 00 chemothera Me dicin py to help e prevent nausea Temozolomid 0 Yes Take 300 [facility] 100 MG 6-24 mg (three [facility] e CAPS 00:00: 100 mg) of 00 pills Medicin nightly e for 5 nights out of a 28 day cycle Temozolomid 2020-0 Yes Take 300 [facility] 100 MG 6-24 mg (three [facility] e CAPS 00:00: 100 mg) of 00 pills Medicin nightly e for 5 nights out of a 28 day cycle Temozolomid 2020-0 Yes Take 300 [facility] 100 MG 6-24 mg (three [facility] e CAPS 00:00: 100 mg) of 00 pills Medicin nightly e for 5 nights out of a 28 day cycle Temozolomid 2020-0 Yes Take 300 [facility] 100 MG 6-24 mg ([facility] e CAPS 00:00: 100 mg) of 00 pills Medicin nightly e for 5 nights out of a 28 day cycle Temozolomid 20200 2020- No Take 300 [facility] 100 MG 6-24 10-14 mg (three Colle ge CAPS 00:00: 00:00 100 mg) of 00 :00 pills Medicin nightly e for 5 nights out of a 28 day cycle dexamethaso 2019-0 2020- No Take 1 tab [facility] ne 6-24 - daily College (JANAD) 00:00: 00:00 during of 4 MG tablet 00 :00 [facility]othera Me dicin py to help e prevent nausea Tamsulosin 0 Yes .4mg Take 0.4 [place] [facility] HCl 0.4 MG 5-27 mg by College CAPS 15:57: mouth. of 33 Medicin e lisinopril 2019-0 Yes 5mg Take 5 mg [facility] ([facility], 5-27 by mouth. [facility] ZESTRIL) 5 15:57: of MG tablet 33 Medicin e dexamethaso 2019-0 Yes Take 1 tab [facility] ne 5-27 daily College (JANADRON) 00:00: during of 4 MG tablet 00 chemothera Me dicin py to help e prevent nausea dexamethaso 2020-0 2020- No Take [address] [facility] 5-27 06-24 daily [facility] ([facility]) 00:00: 00:00 during of 4 MG tablet 00 :00 chemothera Me dicin py to help e prevent nausea dexamethaso 2020-0 2020- No Take 1 tab [facility] ne 06-26 daily [facility] ([facility]) 00:00: 00:00 during of 4 MG tablet 00 :00 chemothera Me dicin py to help e prevent nausea Tamsulosin 2020-0 Yes .4mg Take 0.4 [place] [facility] HCl 0.4 MG 4-01 mg by College CAPS 15:12: mouth. of 52 Medicin e lisinopril 2020-0 Yes 5mg Take 5 mg [facility] ([facility], 4-01 by mouth. [facility] ZESTRIL) 5 15:12: of MG tablet 52 Medicin e Tamsulosin 2020-0 Yes .4mg Take 0.4 [place] HCl 0.4 MG 4-01 mg by College CAPS 15:12: mouth. of 52 Medicin e lisinopril 2020-0 Yes 5mg Take 5 mg [facility] ([facility], 4-01 by mouth. [facility] ZESTRIL) 5 15:12: of MG tablet 52 Medicin e Tamsulosin 2020-0 Yes .4mg Take 0.4 [place] HCl 0.4 MG 4-01 mg by College CAPS 15:12: mouth. of 52 Medicin e lisinopril 2020-0 Yes 5mg Take 5 mg [facility] ([facility], 4-01 by mouth. [facility] ZESTRIL) 5 15:12: of MG tablet 52 Medicin e dexamethaso 2020-0 Yes Take 1 tab [facility] ne 4- daily [facility] ([facility]) 00:00: during of 4 MG tablet 00 chemother Me dicin py to help e prevent nausea promethazin 2020-0 Yes 25mg Take 1 Tab [place] [facility] 4-01 by mouth [facility] ([facility]) 00:00: every 6 of 25 MG 00 hours as Medicin tablet needed. e dexamethaso 2020-0 Yes Take 1 tab [place] 4-01 daily [facility] ([facility]) 00:00: during of 4 MG tablet 00 chemothera Me dicin py to help e prevent nausea promethazin 2020-0 Yes 25mg Take 1 Tab [place] [facility] 4-01 by mouth [facility] ([facility]) 00:00: every 6 of 25 MG 00 hours as Medicin tablet needed. e promethazin 2020-0 Yes 25mg Take 1 Tab [place] [facility] 4-01 by mouth [facility] ([facility]) 00:00: every 6 of 25 MG 00 hours as Medicin tablet needed. e promethazin 2020-0 Yes 25mg Take 1 Tab [place] [facility] 4-01 by mouth [facility] ([facility]) 00:00: every 6 of 25 MG 00 hours as Medicin tablet needed. e promethazin 2020-0 Yes 25mg Take 1 Tab [facility] e 4-01 by mouth [facility] (PHENERGAN) 00:00: every 6 of 25 MG 00 hours as Medicin tablet needed. e promethazin 2020-0 Yes 25mg Take 1 Tab [facility] e 4-01 by mouth [facility] (PH[facility]GAN) 00:00: every 6 of 25 MG 00 hours as Medicin tablet needed. e dexamethaso 2020-0 Yes Take 1 tab [facility] 4-01 daily [facility] ([facility]) 00:00: during of 4 MG tablet 00 chemothera Me dicin py to help e prevent nausea promethazin 2020-0 Yes 25mg Take 1 Tab [facility] e 4-01 by mouth [facility] (PHENERGAN) 00:00: every 6 of 25 MG 00 hours as Medicin tablet needed. e promethazin 2020-0 2020- No 25mg Take 1 Tab [facility] e 4-01 -16 by mouth [place] (PHENERGAN) 00:00: 00:00 every 6 of 25 MG 00 :00 hours as Medicin tablet needed. e dexamethaso 2020-0 2020- No Take 1 tab [facility] 04-23 daily [facility] ([facility]) 00:00: 00:00 during of 4 MG tablet 00 :00 chemothera Me dicin py to help e prevent nausea dexamethaso 2020-0 2020- No Take 1 tab [place] ne 305-19 daily [facility] ([facility]) 00:00: 00:00 during of 4 MG tablet 00 :00 chemothera Me dicin py to help e prevent nausea promethazin 2020-0 2020- No 25mg Take 1 Tab [facility] e 2-13 - by mouth [facility] (PHENERGAN) 00:00: 00:00 every 6 of 25 MG 00 :00 hours as Medicin tablet needed. e promethazin 0 2020- No 25mg Take 1 Tab [facility] e 2-13 04-01 by mouth [place] (PHENERGAN) 00:00: 00:00 every 6 of 25 MG 00 :00 hours as Medicin tablet needed. e Tamsulosin 0 Yes .4mg Take 0.4 [place] [facility] HCl 0.4 MG 2-04 mg by [facility] 17:04: mouth. of 16 Medicin e lisinopril 0 Yes 5mg Take 5 mg [facility] (PRINIVIL, 2-04 by mouth. [facility] ZESTRIL) 5 17:04: of MG tablet 16 Medicin e Temozolomid 2019-0 Yes Take 300 [facility] 100 MG 1-06 [facility] ([facility] 00:00: 100 mg) of 00 pills Medicin nightly e for 5 nights out of a 28 day cycle Temozolomid 2019-0 Yes Take 300 [facility] 100 MG 1-06 mg ([facility] 00:00: 100 mg) of 00 pills Medicin nightly e for 5 nights out of a 28 day cycle Temozolomid 2020-0 Yes Take 300 [facility] 100 MG 1-06 mg ([facility] 00:00: 100 mg) of 00 pills Medicin nightly e for 5 nights out of a 28 day cycle Temozolomid 2020-0 Yes Take 300 [facility] 100 MG 1-06 mg ([facility] 00:00: 100 mg) of 00 pills Medicin nightly e for 5 nights out of a 28 day cycle Temozolomid 2020-0 Yes Take 300 [facility] 100 MG 1-06 mg ([facility] 00:00: 100 mg) of 00 pills Medicin nightly e for 5 nights out of a 28 day cycle Temozolomid 2020-0 2020- No Take 300 [facility] 100 MG 1-06 06-24 mg (three [facility] CAPS 00:00: 00:00 100 mg) of 00 :00 pills Medicin nightly e for 5 nights out of a 28 day cycle Tamsulosin 2018-02 Yes .4mg Take 0.4 [place] [facility] HCl 0.4 MG 1-04 mg by [facility] 17:18: mouth. of 02 Medicin e lisinopril 2018-02 Yes 5mg Take 5 mg [facility] (PRINIVIL, 1-04 by mouth. [facility] ZESTRIL) 5 17:18: of MG tablet 02 Medicin e lisinopril 2018-02 Yes 5mg Take 5 mg [facility] (PRINIVIL, 0-02 by mouth. [facility] ZESTRIL) 5 14:16: of MG tablet 43 Medicin e Tamsulosin 2018-02 Yes .4mg Take 0.4 [place] [facility] HCl 0.4 MG 0-02 mg by [facility]S 14:16: mouth. of 43 Medicin e Temozolomid 2018-02 Yes [id number] Take 140 [facility] e 140 MG 0-02 105 mg nightly [facility] 00:00: for 42 of 00 days Medicin straight e Temozolomid 2018-02 Yes [id number] Take 140 [facility] 140 MG 0-02 105 mg nightly [facility]S 00:00: for 42 of 00 days Medicin straight e Sennosides- 2018-02 Yes [id number] 1{tbl} Take 1 Tab [facility] Docusate 0-02 105 by mouth [facility] Sodium 00:00: daily. of (SENNA-DOCU 00 Medicin SATE e SODIUM) 8.6-50 MG TABS ondansetron 2018-02 Yes [id number] 4mg Take 1 Tab [facility] (ZOFRAN-ODT 0-02 105 by mouth [facility] ) 4 mg 00:00: every 6 of disintegrat 00 hours as Medi cate ing tablet needed for e Nausea. polyethylen 2018-02 Yes [id number] 17g Take 17 g [facility] glycol 0-02 105 by mouth [facility] (GLYCOLAX) 00:00: daily as of powder 00 needed Medicin (constipat e ion). Sennosides- 2018-02 Yes [id number] 1{tbl} Take 1 Tab [facility] Docusate 0-02 105 by mouth [facility] Sodium 00:00: daily. of (SENNA-DOCU 00 Medicin SATE e SODIUM) 8.6-50 MG TABS ondansetron 2018-02 Yes [id number] 4mg Take 1 Tab [facility] (ZOFRAN-ODT 0-02 105 by mouth [facility] ) 4 mg 00:00: every 6 of disintegrat 00 hours as Medi cate ing tablet needed for e Nausea. Temozolomid 2018-02 Yes [id number] Take 140 [facility] e 140 MG 0-02 105 mg nightly [facility] CAPS 00:00: for 42 of 00 days Medicin straight e Sennosides- 2019- Yes [id number] 1{tbl} Take 1 Tab [place] Docusate 0-02 105 by mouth [facility] Sodium 00:00: daily. of (SENNA-DOCU 00 Medicin SATE e SODIUM) 8.6-50 MG TABS ondansetron 2018-02 Yes [id number] 4mg Take 1 Tab [facility] (ZOFRAN-ODT 0-02 105 by mouth [facility] ) 4 mg 00:00: every 6 of disintegrat 00 hours as Medi cate ing tablet needed for e Nausea. polyethylen 2018-02 Yes [id number] 17g Take 17 g [facility] e glycol 0-02 105 by [facility] (GLYCOLAX) 00:00: daily as of powder 00 needed Medicin (constipat e ion). polyethylen 2018-02 Yes [id number] 17g Take 17 g [facility] e glycol 0-02 105 by mouth [facility] (GLYCOLAX) 00:00: daily as of powder 00 needed Medicin (constipat e ion). Temozolomid 2018-02 Yes [id number] Take 140 [facility] e 140 MG 0-02 105 mg nightly [facility] 00:00: for 42 of 00 days Medicin straight e ondansetron 2018-02 Yes [id number] 4mg Take 1 Tab [facility] (ZOFRAN-ODT 0-02 105 by mouth [facility] ) 4 mg 00:00: every 6 of disintegrat 00 hours as Medi cate ing tablet needed for e Nausea. Temozolomid 2018-02 Yes [id number] Take 140 [facility] e 140 MG 0-02 105 mg nightly [facility]S 00:00: for 42 of 00 days Medicin straight e ondansetron 2018- Yes [id number] 4mg Take 1 Tab [facility] (ZOFRAN-ODT 0-02 105 by mouth [facility] ) 4 mg 00:00: every 6 of disintegrat 00 hours as Medi cate ing tablet needed for e Nausea. Temozolomid 2018-02 Yes [id number] Take 140 [facility] e 140 MG 0-02 105 mg nightly [facility]S 00:00: for 42 of 00 days Medicin straight e ondansetron 2018- Yes [id number] 4mg Take 1 Tab [facility] (ZOFRAN-ODT 0-02 105 by mouth [facility] ) 4 mg 00:00: every 6 of disintegrat 00 hours as Medi cate ing tablet needed for e Nausea. Temozolomid 2018-02 Yes [id number] Take 140 [facility] e 140 MG 0-02 105 mg nightly [facility] 00:00: for 42 of days Medicin straight e ondansetron 2018-02 Yes [id number] 4mg Take 1 Tab [facility] (ZOFRAN-ODT 0-02 105 by mouth [facility] ) 4 mg 00:00: every 6 of disintegrat 00 hours as Medi cate ing tablet needed for e Nausea. Temozolomid 2018-02 Yes [id number] Take 140 [facility] e 140 MG 0-02 105 mg nightly [facility] 00:00: for 42 of days Medicin straight e ondansetron 2018-02 Yes [id number] 4mg Take 1 Tab [facility] (ZOFRAN-ODT 0-02 105 by mouth [facility] ) 4 mg 00:00: every 6 of disintegrat 00 hours as Medi cate ing tablet needed for e Nausea. Temozolomid 2018-02 Yes [id number] Take 140 [facility] e 140 MG 0-02 105 mg nightly [facility] 00:00: for 42 of days Medicin straight e ondansetron 2018-02 Yes [id number] 4mg Take 1 Tab [facility] (ZOFRAN-ODT 0-02 105 by mouth [facility] ) 4 mg 00:00: every 6 of disintegrat 00 hours as Medi cate ing tablet needed for e Nausea. Temozolomid 2018-02 Yes [id number] Take 140 [facility] e 140 MG 0-02 105 mg nightly [facility] 00:00: for 42 of days Medicin straight e ondansetron 2018- Yes [id number] 4mg Take 1 Tab [facility] (ZOFRAN-ODT 0-02 105 by mouth [facility] ) 4 mg 00:00: every 6 of disintegrat 00 hours as Medi cate ing tablet needed for e Nausea. Temozolomid 2018-02 Yes [id number] Take 140 [facility] e 140 MG 0-02 105 mg nightly [facility] 00:00: for 42 of 00 days Medicin straight e ondansetron 2018-02 Yes [id number] 4mg Take 1 Tab [facility] (ZOFRAN-ODT 0-02 105 by mouth [facility] ) 4 mg 00:00: every 6 of disintegrat 00 hours as Medi cate ing tablet needed for e Nausea. Temozolomid 2018-02 Yes [id number] Take 140 [facility] e 140 MG 0-02 105 mg nightly [facility] 00:00: for 42 of 00 days Medicin straight e Sennosides- 2019- Yes [id number] 1{tbl} Take 1 Tab [facility] Docusate 0-02 105 by mouth [facility] Sodium 00:00: daily. of (SENNA-DOCU 00 Medicin SATE e SODIUM) 8.6-50 MG TABS Temozolomid 2018-02 Yes [id number] Take 140 [facility] e 140 MG 0-02 105 mg nightly [facility] 00:00: for 42 of days Medicin straight e ondansetron 2018-02 Yes [id number] 4mg Take 1 Tab [facility] (ZOFRAN-ODT 0-02 105 by mouth [facility] ) 4 mg 00:00: every 6 of disintegrat 00 hours as Medi cate ing tablet needed for e Nausea. ondansetron 2018-02 Yes [id number] 4mg Take 1 Tab [facility] (ZOFRAN-ODT 0-02 105 by mouth [facility] ) 4 mg 00:00: every 6 of disintegrat 00 hours as Medi cate ing tablet needed for e Nausea. polyethylen 2018-02 Yes [id number] 17g Take 17 g [facility] e glycol 0-02 105 by mouth [facility] (GLYCOLAX) 00:00: daily as of powder 00 needed Medicin (constipat e ion). Temozolomid 2018-02 Yes [id number] Take 140 [facility] e 140 MG 0-02 105 mg nightly [facility] 00:00: for 42 of 00 days Medicin straight e ondansetron 2018-02 Yes [id number] 4mg Take 1 Tab [facility] (ZOFRAN-ODT 0-02 105 by mouth [facility] ) 4 mg 00:00: every 6 of disintegrat 00 hours as Medi cate ing tablet needed for e Nausea. Temozolomid 2018-02 Yes [id number] Take 140 [facility] e 140 MG 0-02 105 mg nightly [facility] 00:00: for 42 of 00 days Medicin straight e ondansetron 2018-02 Yes [id number] 4mg Take 1 Tab [facility] (ZOFRAN-ODT 0-02 105 by mouth [facility] ) 4 mg 00:00: every 6 of disintegrat 00 hours as Medi cate ing tablet needed for e Nausea. Temozolomid 2018-02 Yes [id number] Take 140 [facility] e 140 MG 0-02 105 mg nightly [facility] 00:00: for 42 of days Medicin straight e ondansetron 2018-02 Yes [id number] 4mg Take 1 Tab [facility] (ZOFRAN-ODT 0-02 105 by mouth [facility] ) 4 mg 00:00: every 6 of disintegrat 00 hours as Medi cate ing tablet needed for e Nausea. Temozolomid 2018-02 Yes [id number] Take 140 [facility] e 140 MG 0-02 105 mg nightly [facility] 00:00: for 42 of days Medicin straight e ondansetron 2018-02 Yes [id number] 4mg Take 1 Tab [facility] (ZOFRAN-ODT 0-02 105 by mouth [facility] ) 4 mg 00:00: every 6 of disintegrat 00 hours as Medi cate ing tablet needed for e Nausea. Temozolomid 2018-02 Yes [id number] Take 140 [facility] e 140 MG 0-02 105 mg nightly [facility] 00:00: for 42 of days Medicin straight e Sennosides- 2019- Yes [id number] 1{tbl} Take 1 Tab [facility] Docusate 0-02 105 by mouth [facility] Sodium 00:00: daily. of (SENNA-DOCU 00 Medicin SATE e SODIUM) 8.6-50 MG TABS ondansetron 2019- Yes [id number] 4mg Take 1 Tab [facility] (ZOFRAN-ODT 0-02 105 by mouth [facility] ) 4 mg 00:00: every 6 of disintegrat 00 hours as Medi cate ing tablet needed for e Nausea. polyethylen 2018-02 Yes [id number] 17g Take 17 g [facility] e glycol 0-02 105 by mouth [facility] (GLYCOLAX) 00:00: daily as of powder 00 needed Medicin (constipat e ion). Temozolomid 2018-02 Yes [id number] Take 140 [facility] e 140 MG 0-02 105 mg nightly [facility] 00:00: for 42 of 00 days Medicin straight e Sennosides- 2018-02 Yes [id number] 1{tbl} Take 1 Tab [facility] Docusate 0-02 105 by mouth [facility] Sodium 00:00: daily. of (SENNA-DOCU 00 Medicin SATE e SODIUM) 8.6-50 MG TABS ondansetron 2018-02 Yes [id number] 4mg Take 1 Tab [facility] (ZOFRAN-ODT 0-02 105 by mouth [facility] ) 4 mg 00:00: every 6 of disintegrat 00 hours as Medi cate ing tablet needed for e Nausea. polyethylen 2018-02 Yes [id number] 17g Take 17 g [facility] e glycol 0-02 105 by mouth [facility] (GLYCOLAX) 00:00: daily as of powder 00 needed Medicin (constipat e ion). Sennosides- 2018-02 2020- No [id number] 1{tbl} Take 1 Tab [facility] Docusate 0-02 05-27 105 by mouth [facility] Sodium 00:00: 00:00 daily. of (SENNA-DOCU 00 :00 Medicin SATE e SODIUM) 8.6-50 MG TABS polyethylen 2018-02 2020- No [id number] 17g Take 17 g [facility] e glycol 0-02 05-27 105 by mouth [facility] (GLYCOLAX) 00:00: 00:00 daily as of powder 00 :00 needed Medicin (constipat e ion). dexamethaso 2019 Yes TAKE 1 [facility] 9-23 TABLET BY [facility] ([facility]) 00:00: MOUTH of 2 MG tablet 00 EVERY 12 Medi cate HOURS X2 e DAYS, THEN 1 TABLET DAILY WITH BREAKFAST X2 DAYS dexamethaso Yes TAKE 1 [facility] 9-23 TABLET BY [facility] ([facility]) 00:00: MOUTH of 2 MG tablet 00 EVERY 12 Medi cate HOURS X2 e DAYS, THEN 1 TABLET DAILY WITH BREAKFAST X2 DAYS dexamethaso Yes TAKE 1 [facility] 9-23 TABLET BY [facility] ([facility]) 00:00: MOUTH of 2 MG tablet 00 EVERY 12 Medi cate HOURS X2 e DAYS, THEN 1 TABLET DAILY WITH BREAKFAST X2 DAYS dexamethaso Yes TAKE 1 [facility] 9-23 TABLET BY [facility] (DECADRON) 00:00: MOUTH of 2 MG tablet 00 EVERY 12 Medi cate HOURS X2 e DAYS, THEN 1 TABLET DAILY WITH BREAKFAST X2 DAYS dexamethaso Yes TAKE 1 [facility] 9-23 TABLET BY [facility] ([facility]) 00:00: MOUTH of 2 MG tablet 00 EVERY 12 Medi cate HOURS X2 e DAYS, THEN 1 TABLET DAILY WITH BREAKFAST X2 DAYS dexamethaso Yes TAKE 1 [facility] 9-23 TABLET BY [facility] ([facility]) 00:00: MOUTH of 2 MG tablet 00 EVERY 12 Medi cate HOURS X2 e DAYS, THEN 1 TABLET DAILY WITH BREAKFAST X2 DAYS dexamethaso Yes TAKE 1 [facility] 9-23 TABLET BY [facility] ([facility]) 00:00: MOUTH of 2 MG tablet 00 EVERY 12 Medi cate HOURS X2 e DAYS, THEN 1 TABLET DAILY WITH BREAKFAST X2 DAYS dexamethaso Yes TAKE 1 [facility] 9[facility]23 [facility]: MOUTH of 2 MG tablet 00 EVERY 12 Medi cate HOURS X2 e DAYS, THEN 1 TABLET DAILY WITH BREAKFAST X2 DAYS dexamethaso Yes TAKE 1 [facility] 9-23 TABLET BY [facility] ([facility]) 00:00: MOUTH of 2 MG tablet 00 EVERY 12 Medi cate HOURS X2 e DAYS, THEN 1 TABLET DAILY WITH BREAKFAST X2 DAYS dexamethaso Yes TAKE 1 [facility] 9-23 TABLET BY [facility] ([facility]ITHAD[facility]) 00:00: MOUTH of 2 MG tablet 00 EVERY 12 Medi cate HOURS X2 e DAYS, THEN 1 TABLET DAILY WITH BREAKFAST X2 DAYS dexamethaso 2020- No TAKE 1 [place] [facility] 9-23 09-16 TABLET BY [facility] ([facility]) 00:00: 00:00 MOUTH of 2 MG tablet 00 :00 EVERY 12 Medi cate HOURS X2 e DAYS, THEN 1 TABLET DAILY WITH BREAKFAST X2 DAYS levetiracet Yes TAKE 1 [facility] (KEPPRA) 9-20 TABLET BY [facility] 500 MG 00:00: MOUTH of tablet 00 TWICE A Medicin DAY e levetiracet Yes TAKE 1 [facility] (KEPPRA) 9-20 TABLET BY [facility] 500 MG 00:00: MOUTH of tablet 00 TWICE A Medicin DAY e levetiracet 2019-0 Yes TAKE 1 [facility] (KEPPRA) 9-20 TABLET BY [facility] 500 MG 00:00: MOUTH of tablet 00 TWICE A Medicin DAY e levetiracet 2018-0 Yes TAKE 1 [facility] (KEPPRA) 9-20 TABLET BY [facility] 500 MG 00:00: MOUTH of tablet 00 TWICE A Medicin DAY e levetiracet 0 Yes TAKE 1 [facility] (KEPPRA) 9-20 TABLET BY [facility] 500 MG 00:00: MOUTH of tablet 00 TWICE A Medicin DAY e levetiracet 0 Yes TAKE 1 [facility] (KEPPRA) 9-20 TABLET BY [facility] 500 MG 00:00: MOUTH of tablet 00 TWICE A Medicin DAY e levetiracet 0 Yes TAKE 1 [facility] (KEPPRA) 9-20 TABLET BY [facility] 500 MG 00:00: MOUTH of tablet 00 TWICE A Medicin DAY e levetiracet 2018-0 Yes TAKE 1 [facility] (KEPPRA) 9-20 TABLET BY [facility] 500 MG 00:00: MOUTH of tablet 00 TWICE A Medicin DAY e levetiracet 0 Yes TAKE 1 [facility] (KEPPRA) 9-20 TABLET BY [facility] 500 MG 00:00: MOUTH of tablet 00 TWICE A Medicin DAY e levetiracet 2018-0 Yes TAKE 1 [facility] (KEPPRA) 9-20 TABLET BY [facility] 500 MG 00:00: MOUTH of tablet 00 TWICE A Medicin DAY e levetiracet 2018-0 Yes TAKE 1 [facility] (KEPPRA) 9-20 TABLET BY [facility] 500 MG 00:00: MOUTH of tablet 00 TWICE A Medicin DAY e levetiracet 2018-0 Yes TAKE 1 [facility] (KEPPRA) 9-20 TABLET BY [facility] 500 MG 00:00: MOUTH of tablet 00 TWICE A Medicin DAY e levetiracet 2018-0 Yes TAKE 1 [facility] (KEPPRA) 9-20 TABLET BY [facility] 500 MG 00:00: MOUTH of tablet 00 TWICE A Medicin DAY e levetiracet Yes TAKE 1 [facility] (KEPPRA) 9-20 TABLET BY [facility] 500 MG 00:00: MOUTH of tablet 00 TWICE A Medicin DAY e levetiracet Yes TAKE 1 [facility] (KEPPRA) 9-20 TABLET BY [facility] 500 MG 00:00: MOUTH of tablet 00 TWICE A Medicin DAY e levetiracet Yes TAKE 1 [facility] (KEPPRA) 9-20 TABLET BY [facility] 500 MG 00:00: MOUTH of tablet 00 TWICE A Medicin DAY e levetiracet Yes TAKE 1 [facility] (KEPPRA) 9-20 TABLET BY [facility] 500 MG 00:00: MOUTH of tablet 00 TWICE A Medicin DAY e levetiracet Yes TAKE 1 [facility] (KEPPRA) 9-20 TABLET BY [facility] 500 MG 00:00: MOUTH of tablet 00 TWICE A Medicin DAY e levetiracet Yes TAKE 1 [facility] (KEPPRA) 9-20 TABLET BY [facility] 500 MG 00:00: MOUTH of tablet 00 TWICE A Medicin DAY e Vital Signs Vital Name Observation Time Observation Value Comments Source Body height 2021-04-11 185.4 cm [facility] 21:43:00 of Medicine Body weight 2021-04-11 79.379 kg [facility] 21:43:00 of Medicine BMI 2021-04-11 23.09 kg/m2 [facility] 21:43:00 of Medicine Body height 2021-01-23 185.4 cm [facility] 15:34:00 of Medicine Body weight 2021-01-23 79.379 kg [facility] 15:34:00 of Medicine BMI 2021-01-23 23.09 kg/m2 [facility] 15:34:00 of Medicine HEIGHT 2020-12-24 188 cm 22:21:00 HEIGHT 2020-12-24 188 cm 14:33:00 WEIGHT 2020-12-24 79.379 kg 14:33:00 HEIGHT 2020-12-24 188 cm 22:21:00 HEIGHT 2020-12-24 188 cm 14:33:00 WEIGHT 2020-12-24 79.379 kg 14:33:00 Systolic blood 2020-03-29 143 mm[Hg] [facility] pressure 16:13:00 of Medicine Diastolic blood 2020-03-29 99 mm[Hg] [facility] pressure 16:13:00 of Medicine Heart rate 2020-03-29 69 /min [facility] 16:13:00 of Medicine Body height 2020-03-29 188 cm [facility] 16:13:00 of Medicine Body weight 2020-03-29 83.008 kg [facility] 16:13:00 of Medicine BMI 2020-03-29 23.50 kg/m2 [facility] 16:13:00 of Medicine Systolic blood 2020-01-04 154 mm[Hg] [facility] pressure 15:21:00 of Medicine Diastolic blood 2020-01-04 105 mm[Hg] [facility] pressure 15:21:00 of Medicine Heart rate 2020-01-04 67 /min [facility] 15:21:00 of Medicine Body height 2020-01-04 188 cm [facility] 15:21:00 of Medicine Body weight 2020-01-04 83.008 kg [facility] 15:21:00 of Medicine BMI 2020-01-04 23.50 kg/m2 [facility] 15:21:00 of Medicine Systolic blood 2019-12-02 143 mm[Hg] [facility] pressure 14:21:00 of Medicine Diastolic blood 2019-12-02 99 mm[Hg] [facility] pressure 14:21:00 of Medicine Heart rate 2019-12-02 77 /min [facility] 14:21:00 of Medicine Body height 2019-12-02 188 cm [facility] 14:21:00 of Medicine Body weight 2019-12-02 83.008 kg [facility] 14:21:00 of Medicine BMI 2019-12-02 23.50 kg/m2 [facility] 14:21:00 of Medicine Systolic blood 2019-11-04 137 mm[Hg] [facility] [employer] pressure 17:30:00 of Medicine Diastolic blood 2019-11-04 93 mm[Hg] [facility] pressure 17:30:00 of Medicine Heart rate 2019-11-04 61 /min [facility] 17:30:00 of Medicine Body height 2019-11-04 188 cm [facility] 17:30:00 of Medicine Body weight 2019-11-04 86.183 kg [facility] 17:30:00 of Medicine BMI 2019-11-04 24.39 kg/m2 [facility] 17:30:00 of Medicine Systolic blood 2019-10-07 117 mm[Hg] [facility] pressure 18:05:00 of Medicine Diastolic blood 2019-10-07 78 mm[Hg] [facility] pressure 18:05:00 of Medicine Heart rate 2019-10-07 72 /min [facility] 18:05:00 of Medicine Body height 2019-10-07 188 cm [facility] 18:05:00 of Medicine Body weight 2019-10-07 85.276 kg [facility] 18:05:00 of Medicine BMI 2019-10-07 24.14 kg/m2 [facility] 18:05:00 of Medicine Systolic blood 2019-09-09 175 mm[Hg] [facility] [employer] pressure 16:30:00 of Medicine Diastolic blood 2019-09-09 114 mm[Hg] [facility] pressure 16:30:00 of Medicine Heart rate 2019-09-09 61 /min [facility] 16:30:00 of Medicine Body height 2019-09-09 188 cm [facility] 16:30:00 of Medicine Body weight 2019-09-09 85.276 kg [facility] 16:30:00 of Medicine BMI 2019-09-09 24.14 kg/m2 [facility] 16:30:00 of Medicine Systolic blood 2019-08-12 136 mm[Hg] [facility] [employer] pressure 16:27:00 of Medicine Diastolic blood 2019-08-12 85 mm[Hg] [facility] pressure 16:27:00 of Medicine Heart rate 2019-08-12 67 /min [facility] 16:27:00 of Medicine Body height 2019-08-12 188 cm [facility] 16:27:00 of Medicine Body weight 2019-08-12 85.276 kg [facility] 16:27:00 of Medicine BMI 2019-08-12 24.14 kg/m2 [facility] 16:27:00 of Medicine Systolic blood 2019-07-15 179 mm[Hg] [employer] [employer] pressure 15:56:00 of Medicine Diastolic blood 2019-07-15 112 mm[Hg] [facility] pressure 15:56:00 of Medicine Heart rate 2019-07-15 55 /min [facility] 15:56:00 of Medicine Body height 2019-07-15 188 cm [facility] 15:56:00 of Medicine Body weight 2019-07-15 85.73 kg [facility] 15:56:00 of Medicine BMI 2019-07-15 24.27 kg/m2 [facility] 15:56:00 of Medicine Systolic blood 2019-06-17 146 mm[Hg] [facility] pressure 15:10:00 of Medicine Diastolic blood 2019-06-17 103 mm[Hg] [facility] pressure 15:10:00 of Medicine Heart rate 2019-06-17 61 /min [facility] 15:10:00 of Medicine Body height 2019-06-17 188 cm [facility] 15:10:00 of Medicine Body weight 2019-06-17 84.369 kg [facility] 15:10:00 of Medicine BMI 2019-06-17 23.88 kg/m2 [facility] 15:10:00 of Medicine Systolic blood 2019-05-20 125 mm[Hg] [facility] pressure 15:10:00 of Medicine Diastolic blood 2019-05-20 83 mm[Hg] [facility] pressure 15:10:00 of Medicine Heart rate 2019-05-20 72 /min [facility] 15:10:00 of Medicine Body height 2019-05-20 188 cm [facility] 15:10:00 of Medicine Body weight 2019-05-20 84.369 kg [facility] 15:10:00 of Medicine BMI 2019-05-20 23.88 kg/m2 [facility] 15:10:00 of Medicine Systolic blood 2019-03-24 146 mm[Hg] pt states that he [facility] olle pressure 17:01:00 has taken bp of Medicine medication this morning Diastolic blood 2019-03-24 96 mm[Hg] pt states that he [facility] pressure 17:01:00 has taken bp of Medicine medication this morning Heart rate 2019-03-24 66 /min [facility] 17:01:00 of Medicine Body height 2019-03-24 188 cm [facility] 17:01:00 of Medicine Body weight 2019-03-24 87.091 kg [facility] 17:01:00 of Medicine BMI 2019-03-24 24.65 kg/m2 [facility] 17:01:00 of Medicine Systolic blood 2018-12-22 155 mm[Hg] [facility] pressure 17:17:00 of Medicine Diastolic blood 2018-12-22 99 mm[Hg] [facility] pressure 17:17:00 of Medicine Heart rate 2018-12-22 62 /min [facility] 17:17:00 of Medicine Body temperature 2018-12-22 36.67 Kym [facility] 17:17:00 of Medicine Respiratory rate 2018-12-22 16 /min [facility] 17:17:00 of Medicine Body height 2018-12-22 188 cm [facility] 17:17:00 of Medicine Body weight 2018-12-22 86.183 kg [facility] 17:17:00 of Medicine BMI 2018-12-22 24.39 kg/m2 [facility] 17:17:00 of Medicine Oxygen saturation 2018-12-22 97 /min [facility] in Arterial blood 17:17:00 of Medicin e by Pulse oximetry Systolic blood 2018-11-19 144 mm[Hg] [facility] pressure 14:07:00 of Medicine Diastolic blood 2018-11-19 96 mm[Hg] [facility] ge pressure 14:07:00 of Medicine Heart rate 2018-11-19 65 /min [facility] 14:07:00 of Medicine Body height 2018-11-19 188 cm [facility] 14:07:00 of Medicine Body weight 2018-11-19 87.998 kg [facility] 14:07:00 of Medicine BMI 2018-11-19 24.91 kg/m2 [facility] 14:07:00 of Medicine Procedures Procedure Date / Time Performing Clinician Source Performed COMPREHENSIVE METABOLIC 2021-04-11 22:21:00 Nargis Degroot [facility] PANEL Medicine CBC W/AUTO DIFF WITH 2021-04-11 22:21:00 Nargis Degroot [facility] PLATELETS Medicine COMPREHENSIVE METABOLIC 2020-03-29 16:55:00 Zane [facility] PANEL Medicine CBC WITH MAN DIFF & 2020-03-29 16:55:00 Nargis Degroot [facility] ABSOLUTE WBC Medicine COMPREHENSIVE METABOLIC 2020-02-16 20:25:00 Zane [facility] PANEL Medicine CBC WITH MAN DIFF & 2020-02-16 20:25:00 Nargis Degroot [facility] ABSOLUTE WBC Medicine COMPREHENSIVE METABOLIC 2019-12-02 15:11:00 [facility] PANEL Medicine CBC W/AUTO DIFF WITH 2019-12-02 15:11:00 Nargis Degroot [facility] PLATELETS Medicine [facility] METABOLIC 2019-09-09 17:41:00 Zane, [facility] PANEL Medicine CBC WITH MAN DIFF & 2019-09-09 17:41:00 Zane, [facility] ABSOLUTE WBC Medicine [facility] 2019-06-17 15:28:00 Zane [facility] PANEL Medicine CBC WITH MAN DIFF & 2019-06-17 15:28:00 Zane, [facility] ABSOLUTE WBC Medicine [facility] 2019-05-20 17:00:00 Zane [facility] PANEL Medicine CBC WITH MAN DIFF & 2019-05-20 17:00:00 Zane, [facility] WBC Medicine [facility] 2019-03-24 17:37:00 Zane, [facility] PANEL Medicine CBC WITH MAN DIFF & 2019-03-24 17:37:00 Zane [facility] WBC Medicine Plan of Care Planned Activity Planned Date Details Comments Source Future Scheduled 2021-06-06 MRI BRAIN W WO CONTRAST Expected: [facility] Test 00:00:00 [code = 16056-8] 06/06/2021, of Medicine Expires: 04/11/2022 Future Scheduled 2021-04-14 Screening for malignant [facility] Test 10:56:56 neoplasm of colon of Medicin e (procedure) [code = 208427817] Future Scheduled 2021-04-14 COVID-19 Vaccine (1) [facility] Test 10:56:56 [code = COVID-19 of Medicine Vaccine (1)] Future Scheduled 2021-04-14 Pneumococcal Combined [facility] Test 10:56:56 (1 of 2 - PPSV23) [code of M edicine = Pneumococcal Combined (1 of 2 - PPSV23)] Future Scheduled 2021-04-14 TETANUS SHOT (ADULT) [facility] Test 10:56:56 [code = TETANUS SHOT of Medi cine (ADULT)] Future Scheduled 2021-04-14 Hepatitis C screening [facility] Test 10:56:56 (procedure) [code = of Medic ine 589201623] Future Scheduled 2021-04-14 Human immunodeficiency B [facility] Test 10:56:56 virus screening of Medicine (procedure) [code = 373473298] Future Scheduled 2021-04-14 ZOSTER VACCINE (1 of 2) [facility] Test 10:56:56 [code = ZOSTER VACCINE of Me dicine (1 of 2)] Future Scheduled 2021-03-14 Screening for malignant [facility] Test 14:37:14 neoplasm of colon of Medicin e (procedure) [code = 406896947] Future Scheduled 2021-03-14 COVID-19 Vaccine (1) [place] [facility] [employer] Test 14:37:14 [code = COVID-19 of Medicine Vaccine (1)] Future Scheduled 2021-03-14 Pneumococcal Combined [employer] Test 14:37:14 (1 of 2 - PPSV23) [code of M edicine = Pneumococcal Combined (1 of 2 - PPSV23)] Future Scheduled 2021-03-14 TETANUS SHOT (ADULT) [place] [facility] [employer] Test 14:37:14 [code = TETANUS SHOT of Medi cine (ADULT)] Future Scheduled 2021-03-14 Hepatitis C screening [employer] Test 14:37:14 (procedure) [code = of Medic ine 427342498] Future Scheduled 2021-03-14 Human immunodeficiency B [facility] Test 14:37:14 virus screening of Medicine (procedure) [code = 723016733] Future Scheduled 2021-03-14 ZOSTER VACCINE (1 of 2) [facility] Test 14:37:14 [code = ZOSTER VACCINE of Me dicine (1 of 2)] Future Scheduled 2021-02-14 Screening for malignant [facility] Test 23:05:05 neoplasm of colon of Medicin e (procedure) [code = 719575571] Future Scheduled 2021-02-14 Pneumococcal Combined [employer] Test 23:05:05 (1 of 2 - PPSV23) [code of M edicine = Pneumococcal Combined (1 of 2 - PPSV23)] Future Scheduled 2021-02-14 COVID-19 Vaccine (1) [place] [facility] [employer] Test 23:05:05 [code = COVID-19 of Medicine Vaccine (1)] Future Scheduled 2021-02-14 TETANUS SHOT (ADULT) [place] [facility] [employer] Test 23:05:05 [code = TETANUS SHOT of Medi cine (ADULT)] Future Scheduled 2021-02-14 Hepatitis C screening [employer] Test 23:05:05 (procedure) [code = of Medic ine 611744410] Future Scheduled 2021-02-14 [facility] virus screening of Medicine (procedure) [code = 063088178] Future Scheduled 2021-02-14 ZOSTER VACCINE (1 of 2) [facility] Test 23:05:05 [code = ZOSTER VACCINE of Me dicine (1 of 2)] Future Scheduled 2021-01-23 Screening for malignant [facility] Test 09:37:03 neoplasm of colon of Medicin e (procedure) [code = 480425258] Future Scheduled 2021-01-23 Pneumococcal Combined Ba [facility] Test 09:37:03 (1 of 2 - PPSV23) [code of M edicine = Pneumococcal Combined (1 of 2 - PPSV23)] Future Scheduled 2021-01-23 COVID-19 Vaccine (1) [facility] Test 09:37:03 [code = COVID-19 of Medicine Vaccine (1)] Future Scheduled 2021-01-23 TETANUS SHOT (ADULT) [facility] Test 09:37:03 [code = TETANUS SHOT of Medi cine (ADULT)] Future Scheduled 2021-01-23 Hepatitis C screening [facility] Test 09:37:03 (procedure) [code = of Medic ine 126146308] Future Scheduled 2021-01-23 Human immunodeficiency B [facility] Test 09:37:03 virus screening of Medicine (procedure) [code = 817063153] Future Scheduled 2021-01-23 ZOSTER VACCINE (1 of 2) [facility] Test 09:37:03 [code = ZOSTER VACCINE of Me dicine (1 of 2)] Diagnostic Test 2020-03-29 MRI BRAIN W WO CONTRAST Ex[facility] Pending 00:00:00 [code = 85375-8] 03/29/2020, of Medicine Expires: 09/15/2020 Diagnostic Test 2019-07-15 MRI BRAIN W WO CONTRAST Expected: [facility] Pending 00:00:00 [code = 35143-1] 07/15/2019, of Medicine Expires: 01/17/2020 Future Scheduled COLON CANCER SCREENING: [facility] Test COLONOSCOPY [code = of Medic ine COLON CANCER SCREENING: COLONOSCOPY] Future Scheduled TETANUS SHOT (ADULT) [place] [facility] Test [code = TETANUS SHOT of Medi cine (ADULT)] Future Scheduled HEPATITIS C SCREENING [employer] Test [code = HEPATITIS C of Medic ine SCREENING] Future Scheduled HIV SCREENING [code = [employer] [facility] HIV SCREENING] of Medicine Future Scheduled FLU VACCINE > 6 MONTHS [employer] Test [code = FLU VACCINE > 6 of M edicine MONTHS] Future Scheduled COLON CANCER SCREENING: [facility] Test COLONOSCOPY [code = of Medic ine COLON CANCER SCREENING: COLONOSCOPY] Future Scheduled TETANUS SHOT (ADULT) [place] [facility] [employer] Test [code = TETANUS SHOT of Medi cine (ADULT)] Future Scheduled HEPATITIS C SCREENING [employer] Test [code = HEPATITIS C of Medic ine SCREENING] Future Scheduled HIV SCREENING [code = [employer] [facility] HIV SCREENING] of Medicine Future Scheduled FLU VACCINE > 6 MONTHS [employer] Test [code = FLU VACCINE > 6 of M edicine MONTHS] Future Scheduled COLON CANCER SCREENING: [facility] [employer] Test COLONOSCOPY [code = of Medic ine COLON CANCER SCREENING: COLONOSCOPY] Future Scheduled TETANUS SHOT (ADULT) [place] [employer] Test [code = TETANUS SHOT of Medi cine (ADULT)] Future Scheduled HEPATITIS C SCREENING [employer] Test [code = HEPATITIS C of Medic ine SCREENING] Future Scheduled HIV SCREENING [code = [employer] [facility] HIV SCREENING] of Medicine Future Scheduled FLU VACCINE > 6 MONTHS [employer] Test [code = FLU VACCINE > 6 of M edicine MONTHS] Future Scheduled CBC WITH MAN DIFF & Ordered: [employer] Test ABSOLUTE WBC [code = 07/15/2019 of Medi cine NOCPT] Future Scheduled COMPREHENSIVE METABOLIC Ordered: [facility] Test PANEL [code = 26784-4] 07/15/2019 of [place] dicine Future Scheduled COLON CANCER SCREENING: [facility] Test COLONOSCOPY [code = of Medic ine COLON CANCER SCREENING: COLONOSCOPY] Future Scheduled TETANUS SHOT (ADULT) [place] [employer] Test [code = TETANUS SHOT of Medi cine (ADULT)] Future Scheduled HEPATITIS C SCREENING [employer] Test [code = HEPATITIS C of Medic ine SCREENING] Future Scheduled HIV SCREENING [code = [employer] [facility] HIV SCREENING] of Medicine Future Scheduled FLU VACCINE > 6 MONTHS [employer] Test [code = FLU VACCINE > 6 of M edicine MONTHS] Future Scheduled CBC WITH MAN DIFF & Ordered: [employer] Test ABSOLUTE WBC [code = 08/12/2019 of Medi cine NOCPT] Future Scheduled COMPREHENSIVE METABOLIC Ordered: [facility] Test PANEL [code = 77038-2] 08/12/2019 of [place] Future Scheduled COLON CANCER SCREENING: [employer] Test COLONOSCOPY [code = of Medic ine COLON CANCER SCREENING: COLONOSCOPY] Future Scheduled TETANUS SHOT (ADULT) [employer] [place] [employer] Test [code = TETANUS SHOT of Medi cine (ADULT)] Future Scheduled HEPATITIS C SCREENING [employer] Test [code = HEPATITIS C of Medic ine SCREENING] Future Scheduled HIV SCREENING [code = [employer] [facility] HIV SCREENING] of Medicine Future Scheduled FLU VACCINE > 6 MONTHS [employer] Test [code = FLU VACCINE > 6 of M edicine MONTHS] Future Scheduled COLON CANCER SCREENING: [facility] Test COLONOSCOPY [code = of Medic ine COLON CANCER SCREENING: COLONOSCOPY] Future Scheduled COLON CANCER SCREENING: [facility] Test COLONOSCOPY [code = of Medic ine COLON CANCER SCREENING: COLONOSCOPY] Future Scheduled TETANUS SHOT (ADULT) [employer] Test [code = TETANUS SHOT of Medi cine (ADULT)] Future Scheduled HEPATITIS C SCREENING [employer] Test [code = HEPATITIS C of Medic ine SCREENING] Future Scheduled HIV SCREENING [code = [employer] [facility] HIV SCREENING] of Medicine Future Scheduled FLU VACCINE > 6 MONTHS [employer] Test [code = FLU VACCINE > 6 of M edicine MONTHS] Future Scheduled TETANUS SHOT (ADULT) [place] [place] [employer] Test [code = TETANUS SHOT of Medi cine (ADULT)] Future Scheduled HEPATITIS C SCREENING [employer] Test [code = HEPATITIS C of Medic ine SCREENING] Future Scheduled CBC WITH MAN DIFF & Ordered: [facility] Test ABSOLUTE WBC [code = 10/07/2019 of Medi cine NOCPT] Future Scheduled HIV SCREENING [code = [employer] [facility] HIV SCREENING] of Medicine Future Scheduled COMPREHENSIVE METABOLIC Ordered: [facility] Test PANEL [code = 14398-6] 10/07/2019 of Me dicine Future Scheduled COLON CANCER SCREENING: [facility] Test COLONOSCOPY [code = of Medic ine COLON CANCER SCREENING: COLONOSCOPY] Future Scheduled TETANUS SHOT (ADULT) [place] [place] [employer] Test [code = TETANUS SHOT of Medi cine (ADULT)] Future Scheduled HEPATITIS C SCREENING [employer] Test [code = HEPATITIS C of Medic ine SCREENING] Future Scheduled HIV SCREENING [code = [employer] [facility] HIV SCREENING] of Medicine Future Scheduled ZOSTER VACCINE (1 of 2) [facility] Test [code = ZOSTER VACCINE of Me dicine (1 of 2)] Future Scheduled FLU VACCINE > 6 MONTHS [employer] Test [code = FLU VACCINE > 6 of M edicine MONTHS] Future Scheduled FLU VACCINE > 6 MONTHS [employer] Test [code = FLU VACCINE > 6 of M edicine MONTHS] Future Scheduled CBC WITH MAN DIFF & Ordered: [employer] Test ABSOLUTE WBC [code = 11/04/2019 of Medi cine NOCPT] Future Scheduled COMPREHENSIVE METABOLIC Ordered: [facility] Test PANEL [code = 12371-1] 11/04/2019 of Me dicine Future Scheduled COLON CANCER SCREENING: [facility] Test COLONOSCOPY [code = of Medic ine COLON CANCER SCREENING: COLONOSCOPY] Future Scheduled TETANUS SHOT (ADULT) [place] [place] [employer] Test [code = TETANUS SHOT of Medi cine (ADULT)] Future Scheduled HEPATITIS C SCREENING [employer] Test [code = HEPATITIS C of Medic ine SCREENING] Future Scheduled HIV SCREENING [code = [employer] [facility] HIV SCREENING] of Medicine Future Scheduled ZOSTER VACCINE (1 of 2) [facility] Test [code = ZOSTER VACCINE of Me dicine (1 of 2)] Future Scheduled FLU VACCINE > 6 MONTHS [employer] Test [code = FLU VACCINE > 6 of M edicine MONTHS] Future Scheduled COLON CANCER SCREENING: [facility] Test COLONOSCOPY [code = of Medic ine COLON CANCER SCREENING: COLONOSCOPY] Future Scheduled TETANUS SHOT (ADULT) [place] [place] [employer] Test [code = TETANUS SHOT of Medi cine (ADULT)] Future Scheduled HEPATITIS C SCREENING [employer] Test [code = HEPATITIS C of Medic ine SCREENING] Future Scheduled HIV SCREENING [code = [employer] [facility] HIV SCREENING] of Medicine Future Scheduled ZOSTER VACCINE (1 of 2) [facility] Test [code = ZOSTER VACCINE of Me dicine (1 of 2)] Future Scheduled FLU VACCINE > 6 MONTHS Postponed from [facility] Test [code = FLU VACCINE > 6 09/19/2019 of M edicine MONTHS] (Postpone Reason: Patient declined today) Future Scheduled CBC WITH MAN DIFF & Ordered: [employer] Test ABSOLUTE WBC [code = 01/04/2020 of Medi cine NOCPT] Future Scheduled COMPREHENSIVE METABOLIC Ordered: [facility] Test PANEL [code = 70795-1] 01/04/2020 of Me dicine Future Scheduled COLON CANCER SCREENING: [facility] Test COLONOSCOPY [code = of Medic ine COLON CANCER SCREENING: COLONOSCOPY] Future Scheduled TETANUS SHOT (ADULT) [place] [place] [employer] Test [code = TETANUS SHOT of Medi cine (ADULT)] Future Scheduled HEPATITIS C SCREENING [employer] Test [code = HEPATITIS C of Medic ine SCREENING] Future Scheduled HIV SCREENING [code = [employer] [facility] HIV SCREENING] of Medicine Future Scheduled ZOSTER VACCINE (1 of 2) [employer] Test [code = ZOSTER VACCINE of Me dicine (1 of 2)] Future Scheduled COLON CANCER SCREENING: [facility] Test COLONOSCOPY [code = of Medic ine COLON CANCER SCREENING: COLONOSCOPY] Future Scheduled COVID-19 Vaccine [facility] Test Evaluation [code = of Medici ne COVID-19 Vaccine Evaluation] Future Scheduled TETANUS SHOT (ADULT) [place] [facility] [employer] Test [code = TETANUS SHOT of Medi cine (ADULT)] Future Scheduled HEPATITIS C SCREENING [employer] Test [code = HEPATITIS C of Medic ine SCREENING] Future Scheduled HIV SCREENING [code = [employer] [facility] HIV SCREENING] of Medicine Future Scheduled ZOSTER VACCINE (1 of 2) [facility] Test [code = ZOSTER VACCINE of Me dicine (1 of 2)] Future Scheduled COLON CANCER SCREENING: [facility] Test COLONOSCOPY [code = of Medic ine COLON CANCER SCREENING: COLONOSCOPY] Future Scheduled COVID-19 Vaccine [facility] Test Evaluation [code = of Medici ne COVID-19 Vaccine Evaluation] Future Scheduled TETANUS SHOT (ADULT) [place] [employer] Test [code = TETANUS SHOT of Medi cine (ADULT)] Future Scheduled HEPATITIS C SCREENING [employer] Test [code = HEPATITIS C of Medic ine SCREENING] Future Scheduled HIV SCREENING [code = [employer] [facility] HIV SCREENING] of Medicine Future Scheduled ZOSTER VACCINE (1 of 2) [facility] Test [code = ZOSTER VACCINE of Me dicine (1 of 2)] Future Scheduled COLON CANCER SCREENING: [facility] Test COLONOSCOPY [code = of Medic ine COLON CANCER SCREENING: COLONOSCOPY] Future Scheduled TETANUS SHOT (ADULT) [place] [employer] Test [code = TETANUS SHOT of Medi cine (ADULT)] Future Scheduled HEPATITIS C SCREENING [employer] Test [code = HEPATITIS C of Medic ine SCREENING] Future Scheduled HIV SCREENING [code = [employer] [facility] HIV SCREENING] of Medicine Future Scheduled FLU VACCINE > 6 MONTHS [employer] Test [code = FLU VACCINE > 6 of M edicine MONTHS] Future Scheduled COLON CANCER SCREENING: [facility] Test COLONOSCOPY [code = of Medic ine COLON CANCER SCREENING: COLONOSCOPY] Future Scheduled TETANUS SHOT (ADULT) [place] [facility] [employer] Test [code = TETANUS SHOT of Medi cine (ADULT)] Future Scheduled HEPATITIS C SCREENING [employer] Test [code = HEPATITIS C of Medic ine SCREENING] Future Scheduled HIV SCREENING [code = [employer] [facility] HIV SCREENING] of Medicine Future Scheduled FLU VACCINE > 6 MONTHS [employer] Test [code = FLU VACCINE > 6 of M edicine MONTHS] Future Scheduled MRI BRAIN WO CONTRAST 1 Occurrences [facility] [employer] Test [code = 09233-7] starting of Medicine 12/02/2019 until 07/01/2020 Future Scheduled COMPREHENSIVE METABOLIC Once a week f or 7 [facility] Test PANEL [code = 08174-8] Occurrences of Me dicine starting 11/19/2018 until 11/20/2019 Future Scheduled CBC WITH MAN DIFF & Once a week for 7 [facility] Test ABSOLUTE WBC [code = Occurrences of Medi cine NOCPT] starting 11/19/2018 until 11/20/2019 Encounters Start End Encounter Admission Attending Care Care Encounter Source Date/Time Date/Time Type Type Clinicians Facility Department ID 2021-06-09 2021-06-09 Outpatient GENIE DEGROOT [facility] [id number] [facility] 00:00:00 00:00:00 NARGIS 2021-06-09 2021-06-09 Outpatient [facility] [id number] SLE 00:00:00 00:00:00 NARGIS 2021-05-09 2021-05-09 Outpatient GENIE DEGROOT [facility] [id number] SLE 00:00:00 00:00:00 NARGIS 2021-04-25 2021-04-25 Outpatient [facility] [id number] [facility] 09:45:44 23:59:00 [facility] e 2021-04-12 2021-04-12 Outpatient [facility] [id number] [facility] 08:50:39 23:59:00 [facility] e 2021-04-11 2021-04-11 Outpatient [facility]OOT [facility] [id number] [facility] 10:40:21 23:59:00 NARGIS 2021-04-11 2021-04-11 Office ADALBERTO Degroot [id number] [facility] 12:00:00 16:15:54 Visit Nargis AMBULATOR 350.1.13.21 Jarrell [place] Y 0.2.7.2.686 of [id number] Medi cate 800 e 2021-03-28 2021-03-28 Outpatient [facility] [id number] [facility] 09:20:26 23:59:00 Colleg [facility]in e 2021-03-14 2021-03-14 [facility] [id number] [facility] 10:05:25 23:59:00 [facility]in e 2021-03-14 2021-03-14 Office KAUSHAL DEGROOT [id number] [facility] 12:37:47 14:36:06 Visit NARGIS AMBULATOR 350.1.13.21 College Y 0.2.7.2.686 of [id number] Medi cate 800 e 2021-02-28 2021-02-28 Outpatient [facility] [id number] [facility] 11:58:07 23:59:00 Colleg e of Medicin e 2021-02-14 2021-02-14 [facility] [id number] [facility] 09:16:44 23:59:00 [facility]in e 2021-02-14 2021-02-14 Office Zane [facility] [id number] [facility] 12:00:00 13:59:06 Visit Nargis AMBULATOR 350.1.13.21 College [place] Y 0.2.7.2.686 of [id number] [facility] cate 800 e 2021-02-09 2021-02-09 Outpatient [facility] [id number] [facility] 10:27:19 23:59:00 NARGIS 2021-01-31 2021-01-31 Outpatient [facility] [id number] [facility] 09:36:52 23:59:00 [facility]in e 2021-01-23 2021-01-23 Office ADALBERTO DEGROOT [id number] [facility] 09:20:49 12:51:48 Visit NARGIS AMBULATOR 350.1.13.21 College Y 0.2.7.2.686 of [id number] Medi cate 800 e 2021-01-18 2021-01-18 Outpatient GENIE [facility] [id number] SLE 06:50:29 06:50:29 2021-01-16 2021-01-16 Outpatient [facility] [id number] [facility] 08:26:56 23:59:00 [facility]in e 2020-12-24 2020-12-26 Inpatient ER YADAV, [facility] Emergency [id number] [facility] 14:38:00 10:26:00 EFREN 2020-12-24 2020-12-24 Outpatient [facility] [id number] [facility] 00:00:00 23:59:00 [facility] 2020-12-19 2020-12-19 Outpatient EL [facility] [id number] [facility] 07:00:28 07:00:28 2020-12-15 2020-12-15 Outpatient EL [facility] [id number] [facility] 16:47:33 16:47:33 2020-12-14 2020-12-14 Outpatient EL [facility] [id number] [facility] 08:19:02 08:19:02 2020-12-08 2020-12-08 Outpatient EL ZANE [facility] [id number] SLE 06:50:25 23:59:00 NARGIS 2020-12-08 2020-12-08 Outpatient ZANE [facility] [id number] [facility] 08:58:19 15:25:13 NARGIS [facility] 2020-10-26 2020-10-26 Outpatient ZANE [facility] [id number] [facility] 09:15:06 12:10:08 NARGIS [facility] 2020-10-26 2020-10-26 Outpatient GENIE DEGROTO [facility] [id number] SLE 00:00:00 00:00:00 NARGIS 2020-09-13 2020-09-13 Outpatient ZANE [facility] [id number] [facility] 10:03:50 14:00:29 NARGIS [facility] [employer] [facility] [employer] 2020-09-13 2020-09-13 Outpatient GENIE DEGROOT [facility] [id number] [facility] 00:00:00 00:00:00 NARGIS 2020-08-02 2020-08-02 Outpatient GENIE DEGROOT [facility] [id number] [facility] 00:00:00 00:00:00 NARGIS 2020-06-21 2020-06-21 [facility] [id number] [facility] 00:00:00 00:00:00 NARGIS 2020-05-10 2020-05-10 Outpatient SERGIO MCNAIR [facility] [id number] [facility] 00:00:00 00:00:00 NARGIS 2020-03-29 2020-03-29 Office KAUSHAL Degroot [id number] [facility] 10:09:11 11:21:31 Visit Nargis AMBULATOR 350.1.13.21 Jarrell [facility] Y 0.2.7.2.686 of [id number] [facility] 800 e 2020-03-29 2020-03-29 Outpatient SERGIO MCNAIR [facility] [id number] [facility] 00:00:00 00:00:00 NARGIS 2020-02-24 2020-02-24 Outpatient GENIE [facility] [id number] [facility] 00:00:00 00:00:00 2020-02-22 2020-02-22 Outpatient [facility] [id number] [facility] 00:00:00 00:00:00 2020-02-16 2020-02-16 Office Zane [facility] [id number] [facility] 14:42:13 15:36:50 Visit Nargis AMBULATOR 350.1.13.21 Jarrell Cody Y 0.2.7.2.686 of [id number] [facility] 800 e 2020-02-16 2020-02-16 Outpatient SERGIO MCNAIR [facility] [id number] [facility] 00:00:00 00:00:00 NARGIS 2020-01-19 2020-01-19 Outpatient [facility]H [facility] [id number] [facility] 00:00:00 00:00:00 2020-01-11 2020-01-11 Outpatient GENIE [facility] [id number] [facility] 00:00:00 00:00:00 2020-01-06 2020-01-06 Outpatient GENIE [facility] [id number] [facility] 00:00:00 00:00:00 2020-01-04 2020-01-04 Office ADALBERTO Degroot 1.2.840.114 [id number] [facility] 09:07:55 09:37:55 Visit Nragis AMBULATOR 350.1.13.21 Jarrell [place] Y 0.2.7.2.686 of [id number] Medi cate 800 e 2019-12-30 2019-12-30 Outpatient ZANE [facility] [id number] [facility] 00:00:00 00:00:00 NARGIS [facility] 2019-12-30 2019-12-30 Outpatient SERGIO DEGROTO [facility] [id number] SLE 00:00:00 00:00:00 NARGIS 2019-12-02 2019-12-02 Office Zane [facility] [id number] [facility] 09:14:29 11:35:25 Visit Nargis AMBULATOR 350.1.13.21 College Cody Y 0.2.7.2.686 of [id number] Medi cate 800 e 2019-11-04 2019-11-04 Office Zane [facility] [id number] [facility] 12:02:17 12:32:17 Visit Nargis AMBULATOR 350.1.13.21 [employer] [place] [employer] 0.2.7.2.686 of [id number] Medi cate 800 e 2019-11-04 2019-11-04 Outpatient SERGIO MCNAIR [facility] [id number] SLE 00:00:00 00:00:00 NARGIS 2019-10-07 2019-10-07 Office Zane [facility] 1.2.840.114 [id number] [facility] 12:56:21 13:26:21 Visit Nargis AMBULATOR 350.1.13.21 [employer] 0.2.7.2.686 of [id number] Medi cate 800 e 2019-09-11 2019-09-11 Outpatient SERGIO MCNAIR [facility] [id number] SLE 00:00:00 00:00:00 NARGIS 2019-09-09 2019-09-09 Office Zane [facility] 1.2.840.114 [id number] [facility] 11:19:15 14:32:11 Visit Nargis AMBULATOR 350.1.13.21 [employer] 0.2.7.2.686 of [id number] Medi cate 800 e 2019-09-09 2019-09-09 Outpatient SERGIO MCNAIR [facility] [id number] SLE 00:00:00 00:00:00 NARGIS 2019-08-12 2019-08-12 Office KAUSHAL Degroot 1.2.840.114 [id number] [facility] 11:24:21 11:54:21 Visit Nargis AMBULATOR 350.1.13.21 [employer] 0.2.7.2.686 of [id number] [facility] cate 800 e 2019-07-15 2019-07-15 Office KAUSHAL Degroot 1.2.840.114 [id number] [facility] 10:51:12 11:25:43 Visit Nargis AMBULATOR 350.1.13.21 [employer] 0.2.7.2.686 of [id number] [facility] 800 e 2019-07-15 2019-07-15 Outpatient GENIE WILLINGHAMELSERGIO SLE [id number] SLE 00:00:00 00:00:00 NARGIS 2019-06-17 2019-06-17 Office ZaneKAUSHAL 1.2.840.114 [id number] [facility] 09:58:19 10:48:53 Visit Nargis AMBULATOR 350.1.13.21 [employer] 0.2.7.2.686 of [id number] [facility] 800 e 2019-05-20 2019-05-20 Office KAUSHAL Degroot 1.2.840.114 [id number] [facility] 09:42:37 14:39:58 Visit Nargis AMBULATOR 350.1.13.21 [employer] 0.2.7.2.686 of [id number] [facility] 800 e 2019-05-20 2019-05-20 Outpatient [facility] SLE [id number] [facility]H 00:00:00 00:00:00 [id number] 2019-03-24 2019-03-24 Office ZaneKAUSHAL 1.2.840.114 [id number] [facility] 10:49:13 13:51:42 Visit Nargis AMBULATOR 350.1.13.21 [employer] 0.2.7.2.686 of [id number] [facility] cate 800 e 2018-12-22 2018-12-22 Office Addie GLOVERLachelle 1.2.840.114 [id number] [facility] 10:19:56 15:15:52 Visit Chilango AMBULATOR 350.1.13.21 College Y 0.2.7.2.686 of [id number] Medi cate 300 e 2018-11-19 2018-11-19 Office KAUSHAL Degroot 1.2.840.114 [id number] [facility] 09:03:26 15:48:58 Visit Nargis AMBULATOR 350.1.13.21 Jarrell [place] 0.2.7.2.686 of [id number] Medi cate 800 e Results Test Description Test Time Test Comments Results Result Comments Source COMPREHENSIVE METABOLIC PANEL 2021-04-11 23:20:51 Test Item Value Reference Range Interpretation Comme nts GLUCOSE (test code = 2345-7) See_Comment H [Automated message] The system which generated this result transmitted ref erence range: 70 - 99 MG/DL. The reference range was not used to interpret this result as loco l/abnormal. BLOOD UREA NITROGEN (test code See_Comment [Automated message] The system = 3091-6) which generated this result transmitted ref erence range: 8 - 23 MG/DL. The r eference range was not used to interpret this result as loco l/abnormal. CREATININE (test code = See_Comment L [Au tomated message] The system 2160-0) which generated this result transmitted ref erence range: 0.8 - 1.4 MG/DL. Th e reference range was not used to interpret this result as loco l/abnormal. EGFR (test code = 29953-1) See_Comment [Automated message] The system which generated this result transmitted ref erence range: >60 ML/MIN/1.73. Th e reference range was not used to interpret this result as loco l/abnormal. BUN/CREAT RATIO (test code = See_Comment [Automated message] The system 3097-3) which generated this result transmitted ref erence range: 6 - 28 RATIO. The r eference range was not used to interpret this result as loco l/abnormal. SODIUM (test code = 2951-2) See_Comment [Automated message] The system which generated this result transmitted ref erence range: 133 - 146 MEQ/L. Th e reference range was not used to interpret this result as loco l/abnormal. POTASSIUM (test code = 2823-3) See_Comment [Automated message] The system which generated this result transmitted ref erence range: 3.5 - 5.4 MEQ/L. Th e reference range was not used to interpret this result as loco l/abnormal. CHLORIDE (test code = 2075-0) See_Comment [Automated message] The system which generated this result transmitted ref erence range: 100 - 112 MEQ/L. Th e reference range was not used to interpret this result as loco l/abnormal. CO2 (test code = 1963-8) See_Comment [A utomated message] The system which generated this result transmitted ref erence range: 21 - 30 MEQ/L. The reference range was not used to interpret this result as loco l/abnormal. CALCIUM (test code = 30286-6) See_Comment [Automated message] The system which generated this result transmitted ref erence range: 8.5 - 10.5 MG/DL. T he reference range was not u sed to interpret this result as normal/abnormal. PROTEIN TOTAL (test code = See_Comment [Automated message] The system 2885-2) which generated this result transmitted ref erence range: 6.1 - 8.1 G/DL. The reference range was not used to interpret this result as loco l/abnormal. ALBUMIN (test code = 33521-1) See_Comment [Automated message] The system which generated this result transmitted ref erence range: 3.4 - 4.8 G/DL. The reference range was not used to interpret this result as loco l/abnormal. GLOBULINS, SERUM, TOTAL (test See_Comment [Automated message] The system code = 68081-4) which genera tima this result transmitted ref erence range: 1.9 - 3.7 G/DL. The reference range was not used to interpret this result as loco l/abnormal. A/G RATIO (test code = 1759-0) See_Comment [Automated message] The system which generated this result transmitted ref erence range: 1.0 - 2.6 RATIO. Th e reference range was not used to interpret this result as loco l/abnormal. BILIRUBIN TOTAL (test code = See_Comment [Automated message] The system 1974-03) which generated this result transmitted ref erence range: <=1.2 MG/DL. Th e reference range was not used to interpret this result as loco l/abnormal. ALKALINE PHOSPHATASE (test 81 U/L 30-132 code = 6768-6) AST (SGOT) (test code = 30 U/L 7-56 1919-09) ALT (SGPT) (test code = 38 U/L 3-47 TESTING PERFORMED AT 1744-2) CLINICAL PATHOL [facility], [facility] [address], [place] [address] [place] [address] CLIA NO. [id number] Unless Otherwise Indic ated, All Testing Performed At: [facility], [address] [facility] [address], [place] [address] Laboratory Dir raheem: Kostas Cruz M.D. CLIA Number [id number] Cap Accreditation N o. [id number] Lab Interpretation (test code Abnormal = 00906-4) [facility] W/AUTO DIFF WITH [id number] 23:00:51 Test Item Value Reference Range Interpretation Comments WHITE BLOOD CELL COUNT See_Comment [Aut omated message] (test code = 56246-4) The sy stem which generated this result transmitted ref erence range: 3.5 - 11 .0 K/UL. The refer ence range was not u sed to interpret this result as normal/abnor mal. RED BLOOD CELL COUNT See_Comment [Autom ated message] (test code = 17096-1) The sy stem which generated this result transmitted ref erence range: 4.50 - 6 .10 M/UL. The refer ence range was not u sed to interpret this result as normal/abnor mal. HEMOGLOBIN (test code = See_Comment [Au tomated message] 718-7) The system whic h generated this result transmitted ref erence range: 13.5 - 1 7.0 G/DL. The refer ence range was not u sed to interpret this result as normal/abnor mal. HEMATOCRIT (test code = 44.5 % 40.0-51.0 ) MEAN CORPUSCULAR VOLUME 93.3 fL 80.0-99.0 (test code = 74620-0) MEAN CORPUSCULAR 32.1 PG 25.0-33.0 HEMOGLOBIN (test code = 94217-3) MEAN CORPUSCULAR See_Comment [Automated message] HEMOGLOBIN CONC (test The sy stem which code = 95089-1) generated th is result transmitted ref erence range: 31.0 - 3 6.0 G/DL. The refer ence range was not u sed to interpret this result as normal/abnor mal. RED CELL DISTRIBUTION 16.8 % 11.5-15.0 H WIDTH (test code = 12443-4) NEUTROPHILS % (test 83 % SEGMENTED code = 93406-0) NEUTROPHILS, MANUAL DIFFERENTIAL. BANDS % (test code = 5 % 0.0-8.0 18411-3) LYMPHOCYTES % (test 8 % code = 34723-0) MONOCYTES % (test code 4 % = 91543-9) EOSINOPHILS % (test 0 % code = 11874-6) BASOPHILS % (test code 0 % = 43417-5) NUCLEATED RED BLOOD See_Comment H [Automa tima message] CELLS (test code = [facility] 13555[facility] generated this result transmitted ref erence range: 0.0 /10 0 WBC'S. The refe rence range was not u sed to interpret this result as normal/abnor mal. PLATELET COUNT (test See_Comment L [Autom ated message] code = 94963-8) The system w [employer] generated this result transmitted ref erence range: 130 - 40 0 K/UL. The reference r maryanne was not used to interpret this result as normal/abnor mal. NEUTROPHILS ABSOLUTE See_Comment H [Autom ated message] COUNT (test code = [facility] 29790-[facility] generated this result transmitted ref erence range: 1.50 - 7 .50 K/UL. The refer ence range was not u sed to interpret this result as normal/abnor mal. LYMPHOCYTES ABSOLUTE See_Comment [Autom ated message] COUNT (test code = The syste which 55679-5) generated this result transmitted ref erence range: 1.00 - 4 .00 K/UL. The refer ence range was not u sed to interpret this result as normal/abnor mal. MONOCYTES ABSOLUTE See_Comment [Automat ed message] COUNT (test code = The syste which 23858-4) generated this result transmitted ref erence range: 0.20 - 1 .00 K/UL. The refer ence range was not u sed to interpret this result as normal/abnor mal. BASOPHILS ABSOLUTE See_Comment [Automat ed message] COUNT (test code = The syste m which 58320-4) generated this result transmitted ref erence range: 0.00 - 0 .20 K/UL. The refer ence range was not u sed to interpret this result as normal/abnor mal. Comments (test code = (NOTE) SLIGHT 87029-5) ANISOCYTOSIS SLIGHT POLYCHR OMASIA FEW TEAR DROP CELLS FEW ELLIPTOCYTES FEW STOMATOCYT ES PLATELETS APPEAR MARKEDLY DECREA SED F EW GIANT PLATELETS FEW ENL ARGED PLATELETS TESTING PERFORMED AT [facility], [place] [address], [place] [address] [place] [address] CLIA NO. [id number] Unless Otherwis e Indicated, All Testing Performed At: Clinical Pathol ogy [facility], [address] [place] [address] Laboratory Dire ctor: Kostas peng M.D. CLIA Num ning [id number] Cap Accreditation N o. [id number] Lab Interpretation Abnormal (test code = 11370-2) [facility] [id number] 07:44:36 Test Item Value Reference Range Interpretation Comments POC-GLUCOSE METER 158 mg/dL 70-110 H : TESTED A T [facility] (BEAKER) (test code = [facility], 1538) [address]: Geospatial Program Management Officer/Techni duglas ID = [id number] for REVA MCFADDEN TSH/FREE T4 IF [id number] 06:25:40 Test Item Value Reference Range Interpretation Comments THYROID STIMULATING HORMONE 0.690 uIU/mL 0.350-4.940 (BEAKER) (test code = 772) Geospatial Program Management Officer ID - TRISH MVITAMIN B12 AND [id number] 06:25:40 Test Item Value Reference Range Interpretation Comments VITAMIN B12 (BEAKER) 1337 pg/mL 213-816 H (test code = 774) FOLATE (BEAKER) 8.90 ng/mL See_Comment [Automated message] (test code = 362) The system which generated this result transmitted ref erence range: >=7.00. The reference range was not used to interpr et this result as normal/abnormal . Geospatial Program Management Officer ID - TRISH MC-REACTIVE [id number] 06:08:13 Test Item Value Reference Range Interpretation Comments C-REACTIVE PROTEIN (AKER) (test 0.06 mg/dL 0.00-0.50 code = 676) Geospatial Program Management Officer ID - TRISH MPOCT-GLUCOSE [id number] 21:36:20 Test Item Value Reference Range Interpretation Comments POC-GLUCOSE METER 139 mg/dL 70-110 H : TESTED A T [facility] [address] ([facility]) (test code = [facility], 1538) [address]: Geospatial Program Management Officer/Techni duglas ID = [id number] for REY SUBRAMANIAN POCT-GLUCOSE [id number] 16:39:59 Test Item Value Reference Range Interpretation Comments POC-GLUCOSE METER 124 mg/dL 70-110 H : TESTED A T [facility] 67[address] (AKER) (test code = [facility], 1538) 1967[address]: Geospatial Program Management Officer/Techni duglas ID = [id number] for ESSIE INIGUEZ POCT-GLUCOSE [id number] 12:19:39 Test Item Value Reference Range Interpretation Comments POC-GLUCOSE METER 125 mg/dL 70-110 H : TESTED A T [facility] [address] (BEAKER) (test code = [facility], 1538) 835[address]: Geospatial Program Management Officer/Techni duglas ID = [id number] for ESSIE INIGUEZ POCT-GLUCOSE [id number] 08:32:58 Test Item Value Reference Range Interpretation Comments POC-GLUCOSE METER 85 mg/dL 70-110 : TESTED A T [facility] [address] (BEAKER) (test code = [facility], 1538) 55[address]: Geospatial Program Management Officer/Techni duglas ID = [id number] for ESSIE DOSS HIGH SENSITIVITY TROPONIN [id number] 03:12:45 Test Item Value Reference Range Interpretation Comments HIGH SENSITIVITY 23 pg/ml See_Comment [Automated message] TROPONIN I (test code = The system which 5879643) generated this result transmitted ref erence range: <=35. Th e reference range was not used to int erpret this result as normal/abnormal . Geospatial Program Management Officer ID - CHRISTIANNEAYA LThe [employer] RESPONDER STAT High Sensitivity Troponin-I results should be used in conjunction with other diagnostic information such as ECG, clinical observations and information, and patient symptoms to aid in the diagnosis of NV.LIPID [id number] 03:04:49 Test Item Value Reference Range Interpretation Comments TRIGLYCERIDES (BEAKER) (test code = 149 mg/dL 540) CHOLESTEROL (BEAKER) (test code = 199 mg/dL 631) HDL CHOLESTEROL (BEAKER) (test code 50 mg/dL = 976) LDL CHOLESTEROL CALCULATED (BEAKER) 119 mg/dL (test code = 633) Triglyceride Reference Range: Low Risk <150 Borderline 150-199 High Risk 200-499 Very High Risk >=500Cholesterol Reference Range: Low Risk <200 Borderline 200-239 High Risk >240HDL Cholesterol Reference Range: Low Risk >=60 High Risk <40LDL Cholesterol Reference Range: Optimal <100 Near Optimal 100-129 Borderline 130-159 High 160-189 Very High >=190 Geospatial Program Management Officer ID - PIAYALCOMPREHENSIVE METABOLIC [id number] 03:04:48 Test Item Value Reference Range Interpretation Comments TOTAL PROTEIN 6.2 gm/dL 6.0-8.3 (BEAKER) (test code = 770) ALBUMIN (BEAKER) 3.6 g/dL 3.5-5.0 (test code = 1145) ALKALINE PHOSPHATASE 39 U/L 40-150 L (BEAKER) (test code = 346) BILIRUBIN TOTAL 0.8 mg/dL 0.2-1.2 (BEAKER) (test code = 377) SODIUM (BEAKER) (test 140 meq/L 136-145 code = 381) POTASSIUM (BEAKER) 3.8 meq/L 3.5-5.1 (test code = 379) CHLORIDE (BEAKER) 110 meq/L 98-107 H (test code = 382) CO2 (BEAKER) (test 22 meq/L 22-29 code = 355) BLOOD UREA NITROGEN 13 mg/dL 7-21 (BEAKER) (test code = 354) CREATININE (BEAKER) 0.87 mg/dL 0.57-1.25 (test code = 358) GLUCOSE RANDOM 94 mg/dL 70-105 (BEAKER) (test code = 652) CALCIUM (BEAKER) 8.7 mg/dL 8.4-10.2 (test code = 697) AST (SGOT) (BEAKER) 11 U/L 5-34 (test code = 353) ALT (SGPT) (BEAKER) 8 U/L 6-55 (test code = 347) EGFR (BEAKER) (test 108 ESTIMATE D GFR IS code = 1092) mL/min/1.73 sq NOT ACCURA TE m CREATININE CLEARANCE IN PREDICTING GLOMERULAR FILTRATION RATE . ESTIMATED GFR I S NOT APPLICABLE FOR DIALYSIS PATIEN TS. Geospatial Program Management Officer ID - DEANGELO [id number] 03:04:48 Test Item Value Reference Range Interpretation Comments MAGNESIUM (BEAKER) (test code = 2.3 mg/dL 1.6-2.6 627) Geospatial Program Management Officer ID - DEANGELO LCBC W/PLT COUNT & AUTO [id number] 02:46:37 Test Item Value Reference Range Interpretation Comments WHITE BLOOD CELL COUNT (BEAKER) 6.0 K/ L 3.5-10.5 (test code = 775) RED BLOOD CELL COUNT (BEAKER) 3.78 M/ L 4.63-6.08 L (test code = 761) HEMOGLOBIN (BEAKER) (test code = 12.4 GM/DL 13.7-17.5 L 410) HEMATOCRIT (BEAKER) (test code = 35.9 % 40.1-51.0 L 411) MEAN CORPUSCULAR VOLUME (BEAKER) 95.0 fL 79.0-92.2 H (test code = 753) MEAN CORPUSCULAR HEMOGLOBIN 32.8 pg 25.7-32.2 H (BEAKER) (test code = 751) MEAN CORPUSCULAR HEMOGLOBIN CONC 34.5 GM/DL 32.3-36.5 (BEAKER) (test code = 752) RED CELL DISTRIBUTION WIDTH 12.9 % 11.6-14.4 (BEAKER) (test code = 412) PLATELET COUNT (BEAKER) (test 157 K/CU MM 150-450 code = 756) MEAN PLATELET VOLUME (BEAKER) 9.1 fL 9.4-12.4 L (test code = 754) NUCLEATED RED BLOOD CELLS 0 /100 WBC 0-0 (BEAKER) (test code = 413) NEUTROPHILS RELATIVE PERCENT 69 % (BEAKER) (test code = 429) LYMPHOCYTES RELATIVE PERCENT 19 % (BEAKER) (test code = 430) MONOCYTES RELATIVE PERCENT 10 % (BEAKER) (test code = 431) EOSINOPHILS RELATIVE PERCENT 1 % (BEAKER) (test code = 432) BASOPHILS RELATIVE PERCENT 0 % (BEAKER) (test code = 437) NEUTROPHILS ABSOLUTE COUNT 4.18 K/ L 1.78-5.38 (BEAKER) (test code = 670) LYMPHOCYTES ABSOLUTE COUNT 1.13 K/ L 1.32-3.57 L (BEAKER) (test code = 414) MONOCYTES ABSOLUTE COUNT (BEAKER) 0.63 K/ L 0.30-0.82 (test code = 415) EOSINOPHILS ABSOLUTE COUNT 0.06 K/ L 0.04-0.54 (BEAKER) (test code = 416) BASOPHILS ABSOLUTE COUNT (BEAKER) 0.01 K/ L 0.01-0.08 (test code = 417) IMMATURE GRANULOCYTES-RELATIVE 0 % 0-1 PERCENT (BEAKER) (test code = 2801) HIGH SENSITIVITY TROPONIN [id number] 00:22:52 Test Item Value Reference Range Interpretation Comments HIGH SENSITIVITY 20 pg/ml See_Comment [Automated message] TROPONIN I (test code = The system which 5016617) generated this result transmitted ref erence range: <=35. Th e reference range was not used to int erpret this result as normal/abnormal . Geospatial Program Management Officer ID - PIAYA LThe [employer] RESPONDER STAT High Sensitivity Troponin-I results should be used in conjunction with other diagnostic information such as ECG, clinical observations and information, and patient symptoms to aid in the diagnosis of NV.RAPID DRUG SCREEN, [id number] 21:10:23 Test Item Value Reference Range Interpretation Comments BARBITURATE URINE (BEAKER) (test Negative Negative code = 725) BENZODIAZEPINE SCREEN URINE (BEAKER) Negative Negative (test code = 726) COCAINE (METAB.) SCREEN (BEAKER) Negative Negative (test code = 1164) METHADONE SCREEN (BEAKER) (test code Negative Negative = 1436) OPIATE SCREEN URINE (BEAKER) (test Negative Negative code = 734) CANNABINOID SCREEN URINE (BEAKER) Positive Negative A (test code = 727) AMPH/METHAMPH SCREEN (BEAKER) (test Negative Negative code = 1438) PHENCYCLIDINE SCREEN URINE (BEAKER) Negative Negative (test code = 608) PH UA (BEAKER) (test code = 467) 6.0 5.0-8.0 DRUG CUTOFF CONC.Cocaine 300 ng/mL Cannabinoid 50 ng/mLBenzodiazepine 200 ng/mLBarbiturate 200 ng/mLPhencyclidine 25 ng/mLOpiate 300 ng/mLMethadone 300 ng/mLAmphetamine/ 1000 ng/mL MethamphetamineThis assay provides an unconfirmed qualitative test result for the clinical management of patients in emergency situations. Chain of custody not maintained. Some yjtj-vnw-yplhxfk medications, as well as adulterants, may cause inaccurate results. Clinical correlation should be applied. A more comprehensivedrug screen or confirmation of a detected drug may be performed upon request.Geospatial Program Management Officer ID - DBMR, BRAIN, WITH 2020-12-24 20:58:00Unlisted Reason for Exam - Click Yes and Enter Reason Below->No[facility] : 1960 Sex: MFINAL REPORT EXAM/TECHNIQUE: MRI brain with and without contrast. Mul tiplanar multisequence images were acquired. INDICATION: Brain mass. COMPARISON: MRI brain from 12/08/2020. FINDINGS: Status post right convexity craniotomy and right temporal lesion resection with similar curvilinear slightly nodular enhancement in the right posterior temporal lobe. There are numerous enhancing lesions with adjacent vasogenic edema, some of which are increased compared to prior exam. Many of these lesions demonstrate DWI hyperintensity, likely representing hypercellularity:-Right globus pallidus enhancing lesion measures 6 x 6 mm, unchanged.-Left thalamic lesion on series 9 image17 measures 15 x 20 mm, previously 15 x 16 mm.-Bilobed lesion in the left frontal lobe on series 9 image 19 and series 9 image 20 measures 14 x 10 mm and 19 x 19 mm, previously 13 x 10 mm and 14 x 9 mm. Ventricles are normal. Basal cisterns are patent. No midline shift. No tonsillar ectopia. Midline structures are unremarkable. Visualized face and upper neck are unremarkable. Flow voids are normal. Remote right medial orbital fracture. Paranasal sinuses are clear. Mastoid air cells are clear. No suspicious osseous lesion. Impression: Interval increase in the multiple enhancing lesions in the supratentorial brain. This could represent disease progression versus treatment effect. Signed: Marcus Linda MDReport Verified Date/Time: 12/24/2020 20:58:43 [id number] 19:58:00 Test Item Value Reference Range Interpretation Comments MAGNESIUM (BEAKER) 1.9 mg/dL 1.6-2.6 Specimen slightly (test code = 627) hemolyzed Geospatial Program Management Officer ID - KINZA [id number] 19:58:00 Test Item Value Reference Range Interpretation Comments PHOSPHORUS (BEAKER) 4.3 mg/dL 2.3-4.7 Specimen slightly (test code = 604) hemolyzed Geospatial Program Management Officer ID - KINZA BSARS-COV2/RT-PCR ([facility])2020-12-24 18:04:06 Test Item Value Reference Range Interpretation Comments SARS-COV2/RT-PCR Negative Negative The SARS-Co V-2 target (test code = nucleic acids a re not 9980774) detected in thi s specimen. Negative result s do not preclude SARS-C oV-2 infection and s hould not be used as the roby e basis for patient managem ent decisions. Nega tive results must be combine d with clinical observ ations, patient history , and epidemiological information. A false negativ e result may occur if a spec imen is improperly sisi ected, transported or handled. This SARS CoV-2 test is a rapid, real-andrew e RT-PCR test intended for th e qualitative detection of nu cleic acid from SARS-CoV-2 in a nasopharyngeal swab specimen collected from individuals suspected of CO VID-19 by their healthcar e provider. This test has been authorized by FDA under an EUA for use by authorized laboratories. This test is only authorized for the duration of the declaration that circumstances exist justifying the authorization of emergency use of in vitro diagnostic tests for detection and/or diagnosis of COVID-19 under Section 564(b)(1) of the Federal Food, Drug and Cosmetic Act, 21 U.S.C. 360bbb- 3(b)(1), unless the authorization is terminated or revoked sooner. Fact Sheet for Healthcare Providers: https://www.Capseo.onlinetours/Documents/Xpert%20Xpress%20SARS%20CoV-2/Fact%20Sheets/302-3802%20SARS-COV -2%20HEALTHCARE%20PROVIDERS%20FACT%20SHEET.pdf Fact Sheet for Healthcare Patients: https://www.Satomi/Documents/Xpert %20Xpress%20SARS%20CoV-2/Fact%20Sheets/302-3801%92AJRA-KKB-1%20PATIENT%20FACT%20 SHEET.pdfCT, BRAIN, WITHOUT [id number] 17:25:00Unlisted Reason for Exam - Click Yes and Enter Reason Below->No [facility] : 1960 Sex: MFINAL REPORT CT, BRAIN, WITHOUT CONTRAST CLINICAL INDICATION: Altered mental status COMPARISON: Correlation to postcontrast brain MRI December 08, 2020 TECHNIQUE: Noncontrast axial CT imaging of the brain and skull. DOSE REDUCTION: Dose modulation, iterative reconstruction, and/or weight-based adjustment of the mA/kV was utilized to reduce the radiation dose to as low as reasonably achievable. FINDINGS:Focal hypoattenuation with central hyperattenuation is present both in the left thalamus and left suero radiata. These lesions correspond to enhancing metastatic disease. Smaller metastatic lesions over the resection bed are not characterized in the current examination. No acute ischemic or hemorrhagic injury is detected. Stable surgical changes seen in the calvarium on the right. IMPRESSION: No visible infarct or hemorrhage. Multifocal intracranial metastatic disease similar in appearance to that seen in the postcontrast MRI December 08, 2020. Signed: JR Schaffer Robert MDReport Verified Date/Time: 12/24/2020 17:25:21 Reading Location: [address] NeuroReading Room URINALYSIS W/ REFLEX URINE [id number] 17:22:45 Test Item Value Reference Range Interpretation Comments COLOR (BEAKER) (test code = 470) Yellow CLARITY (BEAKER) (test code = 469) Clear SPECIFIC GRAVITY UA (BEAKER) (test 1.016 1.001-1.035 code = 468) PH UA (BEAKER) (test code = 467) 5.0 5.0-8.0 PROTEIN UA (BEAKER) (test code = Negative Negative 464) GLUCOSE UA (BEAKER) (test code = Negative Negative 365) KETONES UA (BEAKER) (test code = Negative Negative 371) BILIRUBIN UA (BEAKER) (test code = Negative Negative 462) BLOOD UA (BEAKER) (test code = 461) Negative Negative NITRITE UA (BEAKER) (test code = Negative Negative 465) LEUKOCYTE ESTERASE UA (BEAKER) Negative Negative (test code = 466) UROBILINOGEN UA (BEAKER) (test code 0.2 mg/dL 0.2-1.0 = 463) RBC UA (BEAKER) (test code = 519) 0 /HPF WBC UA (BEAKER) (test code = 520) 2 /HPF BACTERIA (BEAKER) (test code = 517) None Seen MUCUS (BEAKER) (test code = 1574) Rare SQUAMOUS EPITHELIAL (BEAKER) (test < /HPF code = 516) CRYSTALS, URINE (BEAKER) (test code None Seen = 1521) AMORPHOUS CRYSTALS (BEAKER) (test Rare code = 1584) SOURCE(BEAKER) (test code = 2795) Geospatial Program Management Officer ID - [auto]Geospatial Program Management Officer ID - techHIGH SENSITIVITY TROPONIN [id number] 16:29:24 Test Item Value Reference Range Interpretation Comments HIGH SENSITIVITY 20 pg/ml See_Comment [Automated message] TROPONIN I (test code = The system which [id number]) generated this result transmitted ref erence range: <=35. Th e reference range was not used to int erpret this result as normal/abnormal . Geospatial Program Management Officer ID - KINZA BThe [employer] STAT High Sensitivity Troponin-I results should be used in conjunction with other diagnostic information such as ECG, clinical observations and information, and patient symptoms to aid in the diagnosis of NV.COMPREHENSIVE METABOLIC [id number] 16:23:40 Test Item Value Reference Range Interpretation Comments TOTAL PROTEIN 6.3 gm/dL 6.0-8.3 Specimen sligh tly (BEAKER) (test code = hemoly zed 770) ALBUMIN (BEAKER) 3.6 g/dL 3.5-5.0 Specimen sl ightly (test code = 1145) hemolyzed ALKALINE PHOSPHATASE 35 U/L 40-150 L (BEAKER) (test code = 346) BILIRUBIN TOTAL 0.7 mg/dL 0.2-1.2 Specimen sli ghtly (BEAKER) (test code = hemoly zed 377) SODIUM (BEAKER) (test 141 meq/L 136-145 code = 381) POTASSIUM (BEAKER) 3.8 meq/L 3.5-5.1 Specimen slightly (test code = 379) hemolyzed CHLORIDE (BEAKER) 108 meq/L 98-107 H (test code = 382) CO2 (BEAKER) (test 23 meq/L 22-29 code = 355) BLOOD UREA NITROGEN 13 mg/dL 7-21 (BEAKER) (test code = 354) CREATININE (BEAKER) 0.92 mg/dL 0.57-1.25 Specimen slightly (test code = 358) hemolyzed GLUCOSE RANDOM 101 mg/dL 70-105 (BEAKER) (test code = 652) CALCIUM (BEAKER) 9.3 mg/dL 8.4-10.2 (test code = 697) AST (SGOT) (BEAKER) 14 U/L 5-34 Specimen slightly (test code = 353) hemolyzed ALT (SGPT) (BEAKER) 9 U/L 6-55 Specimen slightly (test code = 347) hemolyzed EGFR (BEAKER) (test 101 ESTIMATE D GFR IS code = 1092) mL/min/1.73 sq NOT ACCURA TE m CREATININE CLEARANCE IN PREDICTING GLOMERULAR FILTRATION RATE . ESTIMATED GFR I S NOT APPLICABLE FOR DIALYSIS PATIEN TS. Geospatial Program Management Officer ID - KINZA BCBC W/PLT COUNT & AUTO [id number] 16:06:02 Test Item Value Reference Range Interpretation Comments WHITE BLOOD CELL COUNT (BEAKER) 6.6 K/ L 3.5-10.5 (test code = 775) RED BLOOD CELL COUNT (BEAKER) 3.93 M/ L 4.63-6.08 L (test code = 761) HEMOGLOBIN (BEAKER) (test code = 12.9 GM/DL 13.7-17.5 L 410) HEMATOCRIT (BEAKER) (test code = 37.5 % 40.1-51.0 L 411) MEAN CORPUSCULAR VOLUME (BEAKER) 95.4 fL 79.0-92.2 H (test code = 753) MEAN CORPUSCULAR HEMOGLOBIN 32.8 pg 25.7-32.2 H (BEAKER) (test code = 751) MEAN CORPUSCULAR HEMOGLOBIN CONC 34.4 GM/DL 32.3-36.5 (BEAKER) (test code = 752) RED CELL DISTRIBUTION WIDTH 13.0 % 11.6-14.4 (BEAKER) (test code = 412) PLATELET COUNT (BEAKER) (test 161 K/CU MM 150-450 code = 756) MEAN PLATELET VOLUME (BEAKER) 9.1 fL 9.4-12.4 L (test code = 754) NUCLEATED RED BLOOD CELLS 0 /100 WBC 0-0 (BEAKER) (test code = 413) NEUTROPHILS RELATIVE PERCENT 78 % (BEAKER) (test code = 429) LYMPHOCYTES RELATIVE PERCENT 11 % (BEAKER) (test code = 430) MONOCYTES RELATIVE PERCENT 10 % (BEAKER) (test code = 431) EOSINOPHILS RELATIVE PERCENT 1 % (BEAKER) (test code = 432) BASOPHILS RELATIVE PERCENT 0 % (BEAKER) (test code = 437) NEUTROPHILS ABSOLUTE COUNT 5.18 K/ L 1.78-5.38 (BEAKER) (test code = 670) LYMPHOCYTES ABSOLUTE COUNT 0.74 K/ L 1.32-3.57 L (BEAKER) (test code = 414) MONOCYTES ABSOLUTE COUNT (BEAKER) 0.64 K/ L 0.30-0.82 (test code = 415) EOSINOPHILS ABSOLUTE COUNT 0.03 K/ L 0.04-0.54 L (BEAKER) (test code = 416) BASOPHILS ABSOLUTE COUNT (BEAKER) 0.01 K/ L 0.01-0.08 (test code = 417) IMMATURE GRANULOCYTES-RELATIVE 0 % 0-1 PERCENT (BEAKER) (test code = 2801) RAD, CHEST, 1 VIEW, NON [id number] 15:58:00Reason for exam:->Cognitive declineShould this be performed at the bedside?->Yes [facility] 1960 Sex: MFINAL REPORT INDICATION: Cognitive decline COMPARISON: None TECHNIQUE: Single frontal view of the chest. FINDINGS: Lungs and pleura: Clear lungs. No effusion.Heart and mediastinum: Normal heart size. Unremarkable mediastinal contours.Osseous structures: No acute abnormality.Other: None. IMPRESSION: No acute intrathoracic abnormality. Signed: Irma Funez MDReport Verified Date/Time: 12/24/2020 15:58:11 MR, BRAIN, WITHOUT / WITH IV CONTRAST 2020-12-08 11:13:00Unlisted Reason for Exam - Click Yes and Enter Reason Below->No[facility] : 1960 Sex: MFINAL REPORT Examination: MRI brain with and without contrast History: 60-year-old male with history of glioblastoma, IDH wild type MGMT methylated, status post surgicalresection 11/05/2018 followed by concurrent chemoradiation therapy completed 01/23/2019, status post adjuvant systemic therapy, radiation to right frontal lesion 01/21/2020-02/10/2020 Comparison studies: MRI brain 10/26/2020. Technique:Multiplanar, multisequence magnetic resonance imaging of the brain withand without IV contrast. Intravenous contrast: 8 mL Gadavist. Findings: Scalp: Post surgical changes, otherwise no abnormalities.Bone marrow: Post surgical changes, otherwise no abnormalities. Brain volume: Appropriate for age.Ventricles: Compensatory dilation of the temporal, occipital horns and atria of the right lateral ventricle. Effacement of the left lateral ventricle and third ventricle as below, new since prior. No acute hydrocephalus. Parenchyma:Postsurgical changes status post right temporal craniotomy with resection cavity in the inferolateral right temporal lobe. Unchanged approximately 2.1 x 3.6 x 4.1 cm irregular enhancement along the margins of the resection cavity compared to prior study 10/26/2020 extending along the inferior right temporal lobe cortex, white matter and periventricular/subependymal region adjacent to the temporal horn of right lateral ventricle. Similar enhancement extends along the posterior aspect of the right mesial temporal lobe inferior to the temporal hornof the right lateral ventricle (series 2001 image 103). Associated restricted diffusion along the posterior inferior aspect of the enhancing abnormality is grossly unchanged from 10/26/2020. No associated elevated cerebral blood flow in this region on ASL. T2/FLAIR hyperintensity within the right temporal occipital lobes and inferior right parietal lobe and is not significantly changed. No significant change in multifocal areas of susceptibility artifact from prior blood products. Enhancing focus within the right superior frontal gyrus measuring 0.9 x 1.1 x 0.7 cm with associated susceptibility artifact from prior blood products, not appreciably changed from prior study. Similar ill-defined irregular enhancement within the inferior right occipital lobe with associated susceptibility artifact from prior blood products is unchanged. Ill-defined enhancement and T2/FLAIR hyperintensity within the right putamen and globus pallidus (lentiform nucleus), right posterior internal capsule and right thalamus is not significantly changed. Previously demonstrated punctate enhancing focus within the right insula appears less conspicuous on this examination. New lesions:*Enhancing lesion in the right anteriorlimb of the internal capsule and right globus pallidus measuring approximately 0.8 x 0.7 x 1.0 cm (series 2002 image 85). Mild adjacent FLAIR hyperintensity.*Enhancing lesion centered in the left thalamus/suero radiata measuring 1.8 x 1.8 x 1.5 cm (series 2002 image 104). Adjacent T2/FLAIR hyperintensity and mild associated mass effect, with contribution to effacement of the left lateral ventricle and third ventricle and minimal midline shift. Associated restricted diffusion, elevated cerebral blood flow on ASL, and elevated cerebral blood volume.*Two separate adjacent enhancing lesions within theleft frontal lobe deep white matter measuring 1.1 x 1.4 x 1.9 cm (series 2002 image 112), and 1.3 x 1.1 x 1.0 cm (series 2002 image 123). Adjacent T2/FLAIR hyperintensity and mild surrounding mass effect with contribution to effacement of the left lateral ventricle and third ventricle. Associated 0.2 cm rightward midline shift is new compared to prior study. Associated restricted diffusion and elevated cerebral blood flow on ASL, and elevated total blood volume.*Ill-defined enhancement within the right deep/periventricular white matter along the body of left lateral ventricle measuring up to 0.7 cm(series 2200 108), appearing since prior study.*Punctate foci of enhancement within the right thalamus, likely vascular. Attention on follow-up. Extra-axial spaces:Unchanged small amount of extra-axial fluid deep to the craniotomy without mass effect. Unchanged dural thickening and enhancement adjacent to the craniotomy, likely postsurgical. Suprasellar and sellar region: No abnormalities.Craniocervical junction: No abnormalities. The foramen magnum is patent. No Chiari malformations.Vessels: Normalflow-voids in the arteries and sinuses. Additional findings:Small amount of fluid intensity of the mastoid air cells bilaterally, unchanged. IMPRESSION: 1.Postsurgical changes status post right temporal lobe mass resection. Grossly unchanged irregular marginal enhancement adjacent to the posterior right temporal resection cavity with regional reticular diffusion and surrounding T2/FLAIR hyperintensity, indeterminate and may represent evolving posttreatment changes versus residual tumor.2.Multiple new enhancing lesions within the left frontal lobe, left suero radiata/thalamus, and right globus pallidus/internal capsule, appearing since 10/26/2020, concerning for disease progression/multicentric tumor. Associated T2/FLAIR hyperintensity and mild mass effect with effacement of the left lateral ventricle and third ventricle and minimal 0.2 cm rightward midline shift, new since prior.3.Unchanged ill-defined enhancing lesion in the right basal ganglia/thalamus and internal capsule.4.Previously demonstrated punctate enhancing focus in the right insula has decreased in conspicuity.5.Unchanged appearance of irregularly enhancing lesions in the right superior frontal gyrus and right inferior medial occipital lobe. Signed: Louise Hahn MDReport Verified Date/Time: 12/08/2020 11:13:10 MR, BRAIN, WITHOUT / WITH IV CONTRAST 2020-10-26 12:26:00Unlisted Reason for Exam - Click Yes and Enter Reason Below->[facility] : 1960 Sex: MFINAL REPORT MR, BRAIN, WITHOUT / WITH IV CONTRAST HISTORY: 58-year-o ld male with glioblastoma IVH while type MGMT-methylated (C71.9), status post resection 10/2018, concurrent chemoradiation with multiple cycles of chemotherapy completed. COMPARISON: Multiple prior brain MRIs dating back to 11/04/2018, most recently 09/13/2020. TECHNIQUE:Multiplanar, multisequence MRI ofthe brain (including diffusion-weighted imaging) was performed before and after the administration of intravenous, gadolinium based contrast. DISCUSSION: Scalp/bone marrow: Right pterional craniotomy.Brain sulci: Appropriate for patient's age.Ventricles: Stable compensatory dilation of the temporal and occipital horns of right lateral ventricle. No hydrocephalus.Extra-axial spaces: No masses or fluid collections. Parenchyma:*Postsurgical changes related to right temporal resection with grossly unchanged marginal irregular enhancement along the right posterior inferior temporal lobe resection cavity which measures up to 3.7 x 3.5 cm in largest transverse dimension (series 20, image 9). There is progressively increased restricted diffusion in this area when compared to brain MRI on 08/02/20; this is grossly unchanged compared to MRI on 09/13/2020. Stable surrounding parenchymal T2/FLAIR hyperintensity.*Stable size of an enhancing focus in the right superior frontal gyrus (series 20, image 21) withassociated T2/FLAIR hyperintensity.*T2/FLAIR hyperintense right thalamocapsular enhancing lesion is less conspicuous (series 9, images 13-15). The restricted diffusion in this area has nearly completely resolved.*Punctate enhancing cortical lesion in the right insula (series 2102, image 107) is new.*Unchanged irregular, T2/FLAIR hyperintense, enhancing right medial occipital/lingual gyrus lesion (series 20, image 10).*Additional scattered T2 FLAIR hyperintense foci in the supratentorial white matterlikely represent nonspecific small vessel ischemic changes.*No other new enhancing foci, hemorrhage,or acute vascular insults. No definite areas of increased relative cerebral blood volume. Vessels: Normal flow voids in major arteries and veins.Sellar/Suprasellar region: No abnormalities.Craniocervical junction: No abnormalities.Incidental findings: Mild scattered paranasal sinus mucosal thickening. Trace mastoid effusions, right greater than left. IMPRESSION: 1.Grossly unchanged irregular marginal enhancement along the right posterior temporal resection cavity with regional restricted diffusion and surrounding parenchymal T2/FLAIR hyperintensity. Associated new punctate cortical enhancement is seen in the right insula. These findings may be a combination of evolving postradiation changes and residual tumor. 2.Otherwise, no evidence for tumor progression when compared to brain MRI dated 09/13/2020. 3.Enhancing right thalamocapsular lesion is less conspicuous. 4.No other significant changes when compared to brain MRI dated 09/13/2020.5.Associated stable irregular enhancing foci in the right superior frontal gyrus and right medial occipital region. Signed: Casa Larios MDReport Verified Date/Time: 10/26/2020 12:26:26 MR, BRAIN, WITHOUT / WITH IV [id number] 11:35:00 Unlisted Reason for Exam - Click Yes and Enter Reason Below->No [facility] 1960 Sex: MFINAL REPORT EXAMINATION: MRI of the brain with and without contrast HISTORY: 60-year-old male with glioblastoma IDH-wild type MGMT-methylated (C71.9), status post resection 10/2018, concurrent chemoradiation with Temodar completed 01/2019, adjuvant Temodar cycle #11 completed 11/2019, adjuvant radiation to right frontal lesion completed 01/2020, lomustine cycle #5 comp leted 06/29/2020 and cycle six and 08/10/2020.COMPARISON: Brain MRI 08/02/2020.TECHNIQUE: Pre-contrast:Sagittal T2; axial T1-IR, T2, MPGR, DWI, FLAIR; Post-contrast: axial and coronal T1. Intravenous contrast: 8mL Gadavist. FINDINGS: Parenchyma: 1.Interval worsening marginal irregular enhancement a long the right posterior inferior temporal lobe (difficult to measure, largest transverse diameters about 3.4 x 3.7 cm), no dominant enhancing nodule. The surrounding FLAIR hyperintensity is stable, the findings may correspond to disease progression or treatment effect.2.Interval decrease in size of pr eviously seen enhancing focus in the right superior frontal gyrus. Stable to slightly improved enhancing foci in the right thalamocapsular region, right medial occipital/lingual gyrus. Surrounding FLAIR hyperintensity is also stable.3.No new enhancing foci or hemorrhage. No acute or chronic vascular i nsult. Skull: No abnormal signal intensity or enhancement. Right pterional craniotomy. Major arteries: Expected flow voids present. Dural sinuses: Expected flow voids present. Ventricles: No hydrocephalus, stable compensatory dilatation of the right atrium/temporal and occipital horns. Subarachnoid spaces: No abnormal signal intensity or enhancement. Brain volume: Normal for age. Foramen magnum: No mass, Chiari malformation, or basilar invagination. Sella: No gross mass. Paranasal/mastoid sinuses: Unremarkable. IMPRESSION: 1.Worsening marginal enhancement in the right posterior temporal lobe compared to MRI of 08/03/2020, the findings may correspond to disease progression and/or treatment effect, follow-up in 8-12 weeks is recommended. 2.Slightly improved to not significantly changed enhancing foci in the right superior frontal, right medial occipital and right thalamocapsular regions. Signed: Laura Martinez [facility] Verified Date/Time: 09/13/2020 11:35:51 Reading Location: [facility] Reading Room [address] [place] [address] MR, BRAIN, WITHOUT / WITH IV [id number] 12:15:00Unlisted Reason for Exam - Click Yes and Enter Reason Below->YesUnlisted Reason for Exam->C71.9 [facility] : 1960 Sex: MFINAL REPORT Examination: MRI of the brain without and with IV contra st History: 60-year-old male with glioblastoma IDH-wild type MGMT-methylated (C71.9), status post resection 10/2018, concurrent chemoradiation with Temodar completed 01/2019, adjuvant Temodar cycle #11 completed 11/2019, adjuvant radiation to right frontal lesion completed 01/2020, lomustine cycle #5 co mpleted 06/29/2020 Comparison studies: Multiple prior brain MRIs dated back to 11/04/2018, most recently performed on 06/21/2020 Technique:Pre-contrast: Sagittal T2; axial T1-IR, SWI, DWI, T2 FLAIR, arterial spin labelingPost-contrast: Axial, coronal and sagittal T1. Dynamic contrast enhancement with cerebral blood flow and volume perfusion metrics were also obtained. Intravenous contrast: 8 cc of Gadavist. Findings: Scalp/Bone marrow: Prior right pterional craniotomy. Extra- axial:No fluid collections or hemorrhage. Brain sulci: Appropriate for age.Ventricles: Stable compensatory dilatation of the atrium and temporal horn of the right ventricle. No hydrocephalus. Parenchyma:Ill-defined ring enhancing/nodular enhancement in the right temporal operculum associated with T2 flair hyperintensity and questionable restricted diffusion is new (series 2002 image 71). New linear band of enhancement in the right thalamocapsular region is associated with restricted diffusion and T2 FLAIR hyperintensity ([id number] image 79). Postsurgical changes related to right temporal resection cavity are redemonstrated with ill-defined nodular enhancement along the resection margins and hemosiderin deposition. Underlying T2/FLAIR hyperintensity appears similar.Subcentimeter right subinsular focus of enhancement (series 2002 image 72) and irregular enhancement in the juxtacortical parasagittal right occipital lobe (series 2002 image 68) are unchanged.Subtle ill-defined enhancement in the right thalamus is unchanged (series 2002 image 89). The ill-defined enhancement in the right frontal suero radiata is less conspicuous and no longer associated with restricted diffusion (series 2002 image 97). The nodular enhancement with T2 flair hyperintensity in the right superior frontal gyrus has decreased in size from 1.6 cm to 1.2 cm (series 2002 image 132). No concerning areas of increased relative cerebral blood volume are seen. Other stable scattered T2 FLAIR hyperintense foci in the supratentorial white matter are nonspecific small vessel ischemic changes.No new hemorrhage, acute or chronic vascular insults. Suprasellar region: No abnormalities.Craniocervical junction: No abnormalities. Patent foramen magnum. NoChiari one malformation..Vessels: Normal flow-voids in the arteries and sinuses. Incidental findings:Minimal T2 hyperintense bilateral mastoid opacification, greater on the right. Mild T2 hyperintenseright maxillary sinus mucosal thickening. IMPRESSION: 1.New areas of mild nodular enhancement, and restricted diffusion within the right temporal operculum and right thalamocapsular region may be evolving postradiation changes.2.Otherwise, no evidence for tumor progression.3.Less conspicuous ill-defined enhancement in the right frontal suero radiata and mildly decreased nodular enhancement in the rig ht superior frontal gyrus are compatible with evolving posttreatment change.4.No other significant changes when compared to prior brain MRI dated 06/21/2020. Chronic findings:*Right temporal resection cavity with otherwise unchanged marginal enhancement and adjacent parenchymal T2 FLAIR hyperintensity.*Stable enhancing lesion in the parasagittal right occipital lobe. Signed: Casa Larios MDRdestin Verified Date/Time: 08/04/2020 12:15:25 Reading Location: [facility] Reading Room [address] [place] [address] MR, BRAIN, WITHOUT / WITH IV CONTRAST 2020-06-22 08:42:00Unlisted Reason for Exam - Click Yes and Enter Reason Below->[facility] : 1960 Sex: MFINAL REPORT MR, BRAIN, WITHOUT / WITH IV CONTRAST HISTORY: Primary b rain tumor; status post chemotherapy-radiation; radiation to right frontal lesion in January 2020 COMPARISON: MRI of the brain 05/10/2020 TECHNIQUE:Multiplanar, multisequence MRI of the brain (including diffusion- weighted imaging) was performed before and after the administration of intravenous, gadolinium based contrast. Arterial spin labeling, perfusion, and cerebral blood flow imaging were performed. Motion artifacts obscure some details. DISCUSSION: Scalp/bone marrow: Right temporal/pterional craniotomy changes are present..Brain sulci: Appropriate for patient's age.Ventricles: Stable ex vacuo dilatation of the atrium and temporal horn of the right lateral ventricle. Otherwise, unremarkable.Extra-axial spaces: No masses or fluid collections. Parenchyma:Ill-defined, nodular enhancement alongthe margins of the hemosiderin stained right temporal resection cavity has not significantly changed. Local surrounding parenchymal T2/FLAIR hyperintensity is stable. Approximately 1.6 cm ring enhancing juxtacortical lesion in the right superior frontal gyrus with associated T2/FLAIR hyperintensity isunchanged. Subtle, ill- defined focal enhancement in the right thalamus has not significantly changed. Subcentimeter focus of enhancement in the right subinsular region and irregular juxtacortical enhancement in the medial right occipital lobe also have not not significantly changed. New small focus ofmild diffusion restriction in the right frontal suero radiata is associated with new subtle T2/FLAIR hyperintensity and ill-defined enhancement. No definite areas of increased relative cerebral blood volume are seen. Otherwise stable scattered small T2/FLAIR hyperintense foci throughout the supratentorial white matter are likely chronic microvascular ischemic/posttreatment changes. Otherwise, no newmass, or acute vascular insults. Vessels: Normal flow voids in major arteries and veins.Sellar/Supras ellar region: No abnormalities.Craniocervical junction: No abnormalities.Incidental findings: Tracebilateral mastoid effusions. Minimal scattered paranasal sinus mucosal thickening. IMPRESSION:1.New mild focal diffusion restriction, T2/FLAIR hyperintensity, and ill-defined enhancement in the right frontal suero radiata may be postradiation change.2.Otherwise, no evidence for tumor progression. No other significant changes when compared to MRI of the brain dated 05/10/2020.3.Stable right temporal resection cavity with ill-defined nodular enhancement along the margins and surrounding parenchymal T2/FLAIR hyperintensity.4.Stable enhancing lesions in the right superior frontal gyrus, right thalamus,right subinsular region, and medial right occipital lobe. Signed: Casa Larios MDReport Verified Date/Time: 06/22/2020 08:42:28 Reading Location: [facility] Reading Room [address] [place] [address] MR, BRAIN, WITHOUT / WITH IV [id number] 11:27:00Unlisted Reason for Exam - Click Yes and Enter Reason Below->NoMETROPOLITAN [facility]ITAL[facility]: [facility] : 1960 Sex: MFINAL REPORT Examination: MR, BRAIN, WITHOUT / WITH IV CONTRASTHistor y: Brain tumor, primary; 60 year male with glioblastoma, IDH wild-type, MGMT methylated status post surgical resection October 2018, followed by chemotherapy and radiation.Comparison studies: Multiple brain MRIs with the most recent performed March 29, 2020. Technique:Pre-contrast: Sagittal T2; axial T1, GRE or SWI, DWI, T2 FLAIRPost-contrast: axial, sagittal and coronal T1. Intravenous contrast:4 mL Gadavist. Findings: Scalp: Right pterional craniotomyBone marrow: Normal in signal intensity. Brain volume: Adequate for age.Ventricles: No hydrocephalus. Parenchyma:The previously demonstrated two new areas of abnormal enhancement in the right thalamus and ependymal surface of the atrium of the right lateral ventricle have since decreased in conspicuity and resolved, respectively.Areas of oldenhancement on prior exam and associated FLAIR signal change present in the right superior frontal gyrus, right temporal lobe and lingual gyrus of the right inferomedial occipital lobe remains stable when compared to prior examination. The lesion in the right occipital lobe no longer demonstrates restricted diffusion. The right superior frontal gyrus again demonstrates central area of necrosis and a focus of restricted diffusion.Again demonstrated are are scattered punctate areas of T2/FLAIR hyperintensity in the periventricular and subcortical white matter, nonspecific. .No acute hemorrhage or acute vascular insults. Extra-axial spaces:No lesion, fluid collection or hematoma. Enhancement: As above. Suprasellar and sellar region: No abnormalities.Craniocervical junction: No abnormalities. The foramen magnum is patent. No Chiari malformations.Vessels: Normal flow-voids in the arteries and sinuses. IMPRESSION: Good response to treatment with decreased conspicuity of the right thalamic and resolution of the ependymal surface of the atrium of the right lateral ventricle areas of enhancement when compared to prior brain MRI performed March 29, 2020. Unchanged areas of abnormal enhancement involving the right superior frontal gyrus and right temporal and occipital lobes. Signed: Louise Hahn Verified Date/Time: 05/11/2020 11:27:40 Reading Location: [facility] Reading Room [address] [place] [address] CBC WITH MAN DIFF & ABSOLUTE WBC 2020-03-29 17:52:23 Test Item Value Reference Range Interpretation Comments WHITE BLOOD CELL COUNT See_Comment [Aut omated message] (test code = 30153-8) The sy stem which generated this result transmitted ref erence range: 3.5 - 11 .0 K/UL. The refer ence range was not u sed to interpret this result as normal/abnor mal. RED BLOOD CELL COUNT See_Comment [Autom ated message] (test code = 60377-6) The sy stem which generated this result transmitted ref erence range: 4.50 - 6 .10 M/UL. The refer ence range was not u sed to interpret this result as normal/abnor mal. HEMOGLOBIN (test code = See_Comment [Au tomated message] 718-7) The system [employer] generated this result transmitted ref erence range: 13.5 - 1 7.0 G/DL. The refer ence range was not u sed to interpret this result as normal/abnor mal. HEMATOCRIT (test code = 41.7 % 40-51 35618-4) MEAN CORPUSCULAR VOLUME 90.3 fL 80-99 (test code = 52633-0) MEAN CORPUSCULAR 31.0 PG 25-33 HEMOGLOBIN (test code = 35168-8) MEAN CORPUSCULAR See_Comment [Automated message] HEMOGLOBIN CONC (test The sy stem which code = 86755-8) generated th is result transmitted ref erence range: 31.0 - 3 6.0 G/DL. The refer ence range was not u sed to interpret this result as normal/abnor mal. RED CELL DISTRIBUTION 14.3 % 11.5-15 WIDTH (test code = 17145-1) NEUTROPHILS % (test 69 % 40-75 SEGMENTED code = 19647-6) NEUTROPHILS, MANUAL DIFFERENTIAL. BANDS % (test code = 0 % 0-8 11089-6) LYMPHOCYTES % (test 26 % 20-45 code = 28041-2) MONOCYTES % (test code 4 % 4-12 = 68055-8) EOSINOPHILS % (test 1 % 0-7 code = 70871-2) BASOPHILS % (test code 0 % 0-2 = 25006-0) PLATELET COUNT (test See_Comment T ESTING code = 02110-6) PERFORMED AT [facility], [facility] [address] [place] [address] CLIA NO. [id number] [Au tomated message] The sy stem which generated this result transmit tima reference range : 130 - 400 K/UL. The reference range was not used to int erpret this result as normal/abnormal . NEUTROPHILS ABSOLUTE See_Comment [Autom ated message] COUNT (test code = The syste m which 49395-3) generated this result transmitted ref erence range: 1.50 - 7 .50 K/UL. The refer ence range was not u sed to interpret this result as normal/abnor mal. LYMPHOCYTES ABSOLUTE See_Comment [Autom ated message] COUNT (test code = The syste m which 70420-2) generated this result transmitted ref erence range: 1.00 - 4 .00 K/UL. The refer ence range was not u sed to interpret this result as normal/abnor mal. MONOCYTES CSF (test See_Comment L [Automa tima message] code = 26206-1) The system [facility] generated this result transmitted ref erence range: 0.20 - 1 .00 K/UL. The refer ence range was not u sed to interpret this result as normal/abnor mal. BASOPHILS ABSOLUTE See_Comment [Automat ed message] COUNT (test code = The syste m which 66815-5) generated this result transmitted ref erence range: 0.00 - 0 .20 K/UL. The refer ence range was not u sed to interpret this result as normal/abnor mal. COMMENTS (test code = (NOTE) RBC'S [place] 49970-2) NORMOCHROMIC/NO RMOCYTI C PL ATELETS APPEAR ADEQUATE PLATELETS A PPEAR NORMAL CARIDAD TING PERFORMED AT [facility], [place] [address] [place] [address] CLIA NO. [id number] Unless Otherwis e Indicated, All Testing Performed At: [facility], [address] [facility], [place] [address] Laboratory Dire ctor: Kostas peng M.D. CLIA Num ning [id number] [place]. [id number] Lab Interpretation Abnormal (test code = 63832-0) [facility] [id number] 17:47:02 Test Item Value Reference Range Interpretation Comments GLUCOSE (test code = See_Comment [Autom ated message] 2345-7) The system [employer] generated this result transmitted ref erence range: 70 - 99 MG/DL. The reference r maryanne was not used to interpret this result as normal/abnor mal. BLOOD UREA NITROGEN See_Comment [Automa tima message] (test code = 3091-6) The sys tem which generated this result transmitted ref erence range: 8 - 23 M G/DL. The reference r maryanne was not used to interpret this result as normal/abnor mal. CREATININE (test code = See_Comment [Au tomated message] 2160-0) The system [employer] generated this result transmitted ref erence range: 0.80 - 1 .40 MG/DL. The refe rence range was not u sed to interpret this result as normal/abnor mal. EGFR AA (test code = See_Comment [Autom ated message] 04497-0) The system [employer] generated this result transmitted ref erence range: >60 ML/MIN/1.73. Th e reference range was not used to int erpret this result as normal/abnormal . EGFR (test code = See_Comment [Automate d message] 08252-6) The system [facility] generated this result transmitted ref erence range: >60 ML/MIN/1.73. Th e reference range was not used to int erpret this result as normal/abnormal . BUN/CREAT RATIO (test See_Comment [Auto mated message] code = 3097-3) The system [facility] generated this result transmitted ref erence range: 6 - 28 R ATIO. The reference r maryanne was not used to interpret this result as normal/abnor mal. SODIUM (test code = See_Comment [Automa tima message] 0261-2) The system [facility] generated this result transmitted ref erence range: 133 - 14 6 MEQ/L. The refe rence range was not u sed to interpret this result as normal/abnor mal. POTASSIUM (test code = See_Comment [Aut omated message] 4413-3) The system [facility] generated this result transmitted ref erence range: 3.5 - 5. 4 MEQ/L. The refe rence range was not u sed to interpret this result as normal/abnor mal. CHLORIDE (test code = See_Comment H [Auto mated message] 2074-0) The system [facility] generated this result transmitted ref erence range: 100 - 11 2 MEQ/L. The refe rence range was not u sed to interpret this result as normal/abnor mal. CO2 (test code = See_Comment [Automated message] 1962-8) The system [facility] generated this result transmitted ref erence range: 21 - 30 MEQ/L. The reference r maryanne was not used to interpret this result as normal/abnor mal. CALCIUM (test code = See_Comment [Autom ated message] 32648-2) The system [facility] generated this result transmitted ref erence range: 8.5 - 10 .5 MG/DL. The refe rence range was not u sed to interpret this result as normal/abnor mal. PROTEIN TOTAL (test See_Comment [Automa tima message] code = 2885-2) The system [facility] generated this result transmitted ref erence range: 6.1 - 8. 1 G/DL. The reference r maryanne was not used to interpret this result as normal/abnor mal. ALBUMIN (test code = See_Comment [Autom ated message] 82410-7) The system [employer] generated this result transmitted ref erence range: 3.4 - 4. 8 G/DL. The reference r maryanne was not used to interpret this result as normal/abnor mal. GLOBULINS, SERUM, TOTAL See_Comment [Au tomated message] (test code = 65652-8) The sy stem which generated this result transmitted ref erence range: 1.9 - 3. 7 G/DL. The reference r maryanne was not used to interpret this result as normal/abnor mal. A/G RATIO (test code = See_Comment [Aut omated message] 1759-0) The system [employer] generated this result transmitted ref erence range: 1.0 - 2. 6 RATIO. The refe rence range was not u sed to interpret this result as normal/abnor mal. BILIRUBIN TOTAL (test See_Comment [Auto mated message] code = 1975-2) The system [facility] generated this result transmitted ref erence range: <=1.2 MG /DL. The reference r maryanne was not used to interpret this result as normal/abnor mal. ALKALINE PHOSPHATASE 49 U/L 30-132 (test code = 6768-6) AST (SGOT) (test code = 20 U/L 7-56 1920-8) ALT (SGPT) (test code = 10 U/L 3-47 TESTING 1744-2) [facility]FORMED AT [facility], [facility] [address] [facility] [address] [place] [address] CLIA NO. [id number] Unless Otherwis e Indicated, All Testing Performed At: [facility], [address] [place] [address] Laboratory Dire ctor: Kostas peng M.D. CLIA Num ning [id number] [place]. [id number] Lab Interpretation Abnormal (test code = 22194-6) [facility], [facility] / WITH IV [id number] 15:31:00Unlisted Reason for Exam - Click Yes and Enter Reason Below- >YesUnlisted Reason for Exam->[facility] : 1960 Sex: MFINAL REPORT Examination: MR, BRAIN, WITHOUT / WITH IV CONTRASTHistor y: Unlisted Reason for Exam GBM; 60 year male with glioblastoma, IDH wild-type, MGMT methylated status post surgical resection October 2018, followed by chemotherapy and radiation.Comparison studies:Multiple brain MRIs with the most recent performed February 16, 2020. Technique:Pre-contrast: Sagittal T2; axial T1, GRE or SWI, DWI, T2 FLAIRPost-contrast: axial, sagittal and coronal T1. Intravenous contrast: 8 mL Gadavist. Findings: Scalp: Right pterional craniotomyBone marrow: Normal in signal intensity. Brain volume: Adequate for age.Ventricles: No hydrocephalus. Parenchyma:There are two new areas of abnormal enhancement with associated FLAIR signal change in the right thalamus (5.4 mm) as well as the ependymal surface of the atrium of the right lateral ventricle (3.8 mm).Areas of new and old enhancement on prior exam and associated FLAIR signal change present in the right superior frontal gyrus, right temporal lobe and lingual gyrus of the right inferomedial occipital lobe remains stable w hen compared to prior examination. The lesion in the right occipital lobe now demonstrates restricted diffusion. The right superior frontal gyrus again demonstrates central area of necrosis and mild restricted diffusion.Again demonstrated are are scattered punctate areas of T2/FLAIR hyperintensity in the periventricular and subcortical white matter, nonspecific. .No acute hemorrhage or acute vascular insults. Extra-axial spaces:No lesion, fluid collection or hematoma. Enhancement: As above. Suprasellar and sellar region: No abnormalities.Craniocervical junction: No abnormalities. The foramen magnum is patent. No Chiari malformations.Vessels: Normal flow-voids in the arteries and sinuses. 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 Signed: Louise Hahn MDReport Verified Date/Time: 03/29/2020 15:31:18 Reading Location: [facility] Reading Room [address] [place] [address] COMPREHENSIVE METABOLIC [id number] 21:18:54 Test Item Value Reference Range Interpretation Comments GLUCOSE (test code = See_Comment [Autom ated message] The 2345-7) system which [employer] nerated this result tra nsmitted reference range : 70 - 99 MG/DL. The refe rence range was not u sed to interpret this result as normal/abnormal . BLOOD UREA NITROGEN See_Comment [Automa tima message] The (test code = 3091-6) system which generated this result tra nsmitted reference range : 8 - 23 MG/DL. The refe rence range was not u sed to interpret this result as normal/abnormal . CREATININE (test code = See_Comment [Au tomated message] The 2160-0) system which [employer] nerated this result tra nsmitted reference range : 0.80 - 1.40 MG/DL. The reference range was not used to interpr et this result as normal/abnormal . EGFR AA (test code = See_Comment [Autom ated message] The 12963-8) system which [employer] nerated this result tra nsmitted reference range : >60 ML/MIN/1.73. Th e reference range was not used to interpr et this result as normal/abnormal . EGFR (test code = See_Comment [Automate d message] The 43389-8) system which [employer] nerated this result tra nsmitted reference range : >60 ML/MIN/1.73. Th e reference range was not used to interpr et this result as normal/abnormal . BUN/CREAT RATIO (test See_Comment [Auto mated message] The code = 3097-3) system which generated this result tra nsmitted reference range : 6 - 28 RATIO. The refe rence range was not u sed to interpret this result as normal/abnormal . SODIUM (test code = See_Comment [Automa tima message] The 2951-2) system which ge nerated this result tra nsmitted reference range : 133 - 146 MEQ/L. The reference range was not u sed to interpret this result as normal/abnormal . POTASSIUM (test code = See_Comment [Aut omated message] The 2823-3) system which ge nerated this result tra nsmitted reference range : 3.5 - 5.4 MEQ/L. The reference range was not u sed to interpret this result as normal/abnormal . CHLORIDE (test code = See_Comment [Auto mated message] The 2074-0) system which ge nerated this result tra nsmitted reference range : 100 - 112 MEQ/L. The reference range was not u sed to interpret this result as normal/abnormal . CO2 (test code = See_Comment [Automated message] The 1962-09) system which ge nerated this result tra nsmitted reference range : 21 - 30 MEQ/L. The refe rence range was not u sed to interpret this result as normal/abnormal . CALCIUM (test code = See_Comment [Autom ated message] The 83594-0) system which ge nerated this result tra nsmitted reference range : 8.5 - 10.5 MG/DL. The reference range was not used to interpr et this result as normal/abnormal . PROTEIN TOTAL (test See_Comment [Automa tima message] The code = 2885-2) system which generated this result tra nsmitted reference range : 6.1 - 8.1 G/DL. The r eference range was not u sed to interpret this result as normal/abnormal . ALBUMIN (test code = See_Comment [Autom ated message] The 31107-7) system which ge nerated this result tra nsmitted reference range : 3.4 - 4.8 G/DL. The r eference range was not u sed to interpret this result as normal/abnormal . GLOBULINS, SERUM, TOTAL See_Comment [Au tomated message] The (test code = 99025-0) system which generated this result tra nsmitted reference range : 1.9 - 3.7 G/DL. The r eference range was not u sed to interpret this result as normal/abnormal . A/G RATIO (test code = See_Comment [Aut omated message] The ) system which ge nerated this result tra nsmitted reference range : 1.0 - 2.6 RATIO. The reference range was not u sed to interpret this result as normal/abnormal . BILIRUBIN TOTAL (test See_Comment [Auto mated message] The code = 1974-03) system which generated this result tra nsmitted reference range : <=1.2 MG/DL. The refe rence range was not u sed to interpret this result as normal/abnormal . ALKALINE PHOSPHATASE 56 U/L 30-132 (test code = 6768-6) AST (SGOT) (test code = 20 U/L 7-56 1919-09) ALT (SGPT) (test code = 11 U/L 3-47 TESTING PERFORMED 1743-03) AT [facility] [employer] [facility], [place]. [address] [place] [address] CLIA NO. [id number] Unless Other lewis Indicated, All Testing Performed At: [facility], [address] [place] [address] [employer] Technician: Kostas peng M.D. CLIA Numbe r [id number] [place]. [id number] [facility] WITH MAN DIFF & ABSOLUTE [id number] 21:15:09 Test Item Value Reference Range Interpretation Comments WHITE BLOOD CELL COUNT See_Comment [Aut omated message] (test code = 37161-3) The sy stem which generated this result transmitted ref erence range: 3.5 - 10 .0 K/UL. The reference r maryanne was not used to int erpret this result as normal/abnormal . RED BLOOD CELL COUNT See_Comment [Autom ated message] (test code = 27118-5) The sy stem which generated this result transmitted ref erence range: 4.30 - 5 .70 M/UL. The refer ence range was not u sed to interpret this result as normal/abnor mal. HEMOGLOBIN (test code = See_Comment [Au tomated message] 718-7) The system whic h generated this result transmitted ref erence range: 13.5 - 1 7.0 G/DL. The refer ence range was not u sed to interpret this result as normal/abnor mal. HEMATOCRIT (test code = 44.0 % 38-50 20232-2) MEAN CORPUSCULAR VOLUME 88.9 fL 80-99 (test code = 57153-0) MEAN CORPUSCULAR 30.7 PG 25-34 HEMOGLOBIN (test code = 08695-9) MEAN CORPUSCULAR See_Comment [Automated message] HEMOGLOBIN CONC (test The sy stem which code = 76789-9) generated th is result transmitted ref erence range: 31.0 - 3 6.0 G/DL. The refer ence range was not u sed to interpret this result as normal/abnor mal. RED CELL DISTRIBUTION 14.3 % 11.5-15 WIDTH (test code = 72051-2) NEUTROPHILS % (test 58 % 40-75 SEGMENTED code = 44699-3) NEUTROPHILS, MANUAL DIFFERENTIAL. BANDS % (test code = 0 % 0-8 13360-1) LYMPHOCYTES % (test 33 % 20-45 code = 64870-2) MONOCYTES % (test code 8 % 4-12 = 45679-3) EOSINOPHILS % (test 1 % 0-7 code = 41767-8) BASOPHILS % (test code 0 % 0-2 = 47479-0) PLATELET COUNT (test See_Comment [Autom ated message] code = 12684-3) The system [employer] generated this result transmitted ref erence range: 130 - 40 0 K/UL. The reference r maryanne was not used to int erpret this result as normal/abnormal . NEUTROPHILS ABSOLUTE See_Comment [Autom ated message] COUNT (test code = The syste m which 82395-5) generated this result transmitted ref erence range: 1.50 - 7 .50 K/UL. The refer ence range was not u sed to interpret this result as normal/abnor mal. LYMPHOCYTES ABSOLUTE See_Comment [Autom ated message] COUNT (test code = The syste m which 61445-3) generated this result transmitted ref erence range: 0.80 - 4 .00 K/UL. The refer ence range was not u sed to interpret this result as normal/abnor mal. MONOCYTES CSF (test See_Comment [Automa tima message] code = 31001-8) The system [employer] generated this result transmitted ref erence range: 0.40 - 1 .00 K/UL. The refer ence range was not u sed to interpret this result as normal/abnor mal. BASOPHILS ABSOLUTE See_Comment [Automat ed message] COUNT (test code = The syste m which 94000-9) generated this result transmitted ref erence range: 0.00 - 0 .20 K/UL. The refer ence range was not u sed to interpret this result as normal/abnor mal. COMMENTS (test code = (NOTE) RBC'S ARE 62844-0) NORMOCHROMIC/NO RMOCYTIC PLAT ELETS APPEAR ADEQUATE PLATELETS AP PEAR NORMAL CARIDAD TING PERFORMED AT INICAL PATHOLOG[facility] [employer]. [address] [place], [place] [address] CLIA NO. [id number] Unless Otherwis e Indicated, All Testing Performed At: [facility], [address] [place] [address] [employer] Processing Technician: Kostas Cruz M.D. CLIA Number [id number] [place] [id number] [facility], WITHOUT / WITH IV [id number] 12:46:00STEALTH SCANUnlisted Reason for Exam - Click Yes and Enter Reason Below->NoMET[facility]OP[facility] : 1960 Sex: MFINAL REPORT History: GBM (IDH wild-type, injury in 19 methylated sta tus post resection on 11/06/2019 6 x 6 weeks concurrent chemotherapy XRT with Temodar and adjuvant Temodar. Comparison studies: Multiple brain MRIs which date to 11/04/2018, most recent of 12/30/2019. Technique:Multiplanar multisequence brain MRI prior to and following ministration of IV contrast was obt ained.Intravenous contrast: 8 cc of Gadavist. Findings: Scalp and bone marrow: Postsurgical changes of prior right temporal craniotomy. Brain sulci: Appropriate for age.Ventricles: Unchanged mild ex vacuo dilatation of the temporal horn right lateral ventricle. No hydrocephalus. Extra-axial spaces: Un changed postsurgical reactive dural enhancement along the right cerebral convexity beneath the righttemporal craniotomy. Tiny extra-axial fluid collection of CSF signal along the right inferior to convexity without significant mass effect is not significantly changed. Parenchyma:Surgical changes in the right temporal lobes for prior GBM resection with resection cavity which extends from the right temporal pole posteriorly and inferiorly along the right middle and inferior temporal gyri. There is persistent ill- defined enhancement near the margin of the resection cavity along the ependymal surface of the temporal horn the right lateral ventricle as well as cortical and subcortical enhancement within the right temporal lobe and right occipitotemporal region, degree of which has slightly decreased from the recent 12/30/2019 MRI. Foci of enhancement in the right temporal lobe more posteriorly are with associated restricted diffusion, degree of which has slightly decreased from the prior MRI. A fewareas of enhancement are also with elevated relative cerebral blood volume. Nonspecific, nonenhancing T2 FLAIR hyperintense signal changes which surround the right temporal lobe resection cavity are not significantly changed. Moreover, T2 FLAIR hyperintensity more posteriorly in the right temporal lobe has slightly decreased. Small foci hemosiderin and within the right temporal lobe are not significantly changed and there is no new hemorrhage. New 1.6 x 2.4 x 2.0 cm (SI x AP x TV) enhancing lesion with adjacent satellite enhancing nodules centered in the lingual gyrus of the right inferomedial occipital lobe abuts the falx and straight sinus which is otherwise patent. Lesion is with associated restricted diffusion, foci of decreased signal on the SWI sequence compatible with blood products and iswith mild surrounding nonenhancing T2 FLAIR hyperintensity. There is questionable mildly elevated cer ebral blood volume along the medial margin of the lesion superiorly. Enhancing lesion which is now with central necrosis centered in the right superior frontal gyrus has increased in size from from 1.1x 1.2 x 0.9 cm (SI x AP x TV) to 1.4 x 1.7 x 1.2 cm. Lesion is with associated mild restricted diffusion, now contains small blood products as seen on the SWI sequence, is with elevated relative cerebral blood volume (up to 2.3) and is with mild increased surrounding nonenhancing T2 FLAIR hyperintensity. A few scattered T2 FLAIR hyperintense foci in the supratentorial white matter are nonspecific butmay be mild chronic microvascular ischemic changes. Suprasellar region: No abnormalities.Craniocervical junction: Patent foramen magnum. No Chiari one malformation.Vessels: Normal flow-voids in the arteries and sinuses.Incidental findings: Mild mucosal thickening in the right maxillary sinus. IMPRESSION: 1.Postsurgical and posttreatment changes for prior GBM resection with residual treated tumor beneath the right temporal craniotomy. Enhancement and nonspecific, nonenhancing regional T2 FLAIR hyperintensity in the right temporal lobe have overall slightly decreased compared to the recent brain MR of 12/30/2019.2.Enhancing right superior frontal gyrus lesion has increased in size from 1.2 cm to 1.7 cm and is concerning for multicentric GBM.3.New enhancing 2.0 cm right occipital lesion may also reflect multicentric GBM.4.No other changes from the prior brain MRI of 12/30/2019. Signed: Doug Smith MDReport Verified Date/Time: 02/16/2020 12:46:47 Reading Location: [facility] Reading Room [address] [place] [address] , BRAIN, WITHOUT / WITH IV [id number] 11:47:00Unlisted Reason for Exam - Click Yes and Enter Reason Below->Yes Unlisted Reason for Exam->Glio blastomaMETROPOLIT[facility] JOHANNA NICHOLS LAURO : 1960 Sex: MFINAL REPORT Examination: MRI of the brain without and with contrast History: 59-year-old male with glioblastoma, IDH wild-type, MGMT methylated, status post surgical resection on 11/05/2018, followed by concurrent chemoradiation from 12/07/2018 to 01/23/2019; adjuvant Temodar, Comparison studies: Brain MRIs 11/04/2019, 09/09/2019, 07/16/2019 Technique:Pre-contrast: Sagittal T2; axial T1-IR, SWI, DWI, T2 FLAIRPost-contrast: Axial, coronal and sagittal T1. Axial MR perfusion.Intravenous contrast: 18 cc of Gadavist. Findings: Scalp/Bone marrow: Right pterional craniotomy. Extra-axial:No masses, fluid collections or hemorrhage. Brain sulci: Appropriate for age.Ventricles: Co mpensatory dilatation of the right lateral ventricle temporal horn. Otherwise normal in size . No hydrocephalus. Parenchyma:Postsurgical changes of right inferior temporal glioblastoma resection is associated with chronic hemosiderin susceptibility and T2 flair nonenhancement. Large area of irregular nodular enhancement throughout the right temporal occipital region is associated with increased T2 flair signal abnormality (series 6 image 14), tiny foci of hemosiderin deposition, and restricted diffusion. This is new compared to prior brain MRI on 11/04/2019. It is difficult to measure accurately dueto to its ill- defined margins but approximately measures 2.8 x 6.8 x 3.5 cm (SI-AP-Trans, series 1802 image 79). The previously nonenhancing T2 FLAIR hyperintensity centered in the right superior frontal gyrus is now associated with 1.2 x 1.2 x 1 cm irregular nodular enhancement (series 1802 image 147) and restricted diffusion. Scattered T2 FLAIR hyperintense foci in the supratentorial white matter are nonspecific small vessel ischemic changes. No new hemorrhage or large vascular territorial insults. Suprasellar region: No abnormalities.Craniocervical junction: No abnormalities. Patent foramen magnum. No Chiari one malformation.Vessels: Normal flow-voids in the arteries and sinuses. IMPRESSION:1.Large irregular nodular enhancing area throughout the right temporal occipital region is associated with increased T2 flair signal abnormality, restricted diffusion, and tiny foci of hemosiderin deposition. MR perfusion demonstrates increased perfusion is concerning for tumor recurrence. 2.Previous nonenhancing T2 FLAIR hyperintensity in the right superior frontal gyrus now enhances and restricts diffusion, concerning for multicentric glioblastoma. 3.Postsurgical changes of right temporal glioblastoma resection. Signed: Louise Hahn MILAGROSeport Verified Date/Time: 12/31/2019 11:47:36 REHENSIVE METABOLIC [id number] 16:07:44 Test Item Value Reference Range Interpretation Comments GLUCOSE (test code = See_Comment [Autom ated message] The 2345-7) system which ge nerated this result tra nsmitted reference range : 70 - 99 MG/DL. The refe rence range was not u sed to interpret this result as normal/abnormal . BLOOD UREA NITROGEN See_Comment [Automa tima message] The (test code = 3091-6) system which generated this result tra nsmitted reference range : 8 - 23 MG/DL. The refe rence range was not u sed to interpret this result as normal/abnormal . CREATININE (test code = See_Comment [Au tomated message] The 2160-0) system which ge nerated this result tra nsmitted reference range : 0.80 - 1.40 MG/DL. The reference range was not used to interpr et this result as normal/abnormal . EGFR AA (test code = See_Comment [Autom ated message] The 72379-4) system which ge nerated this result tra nsmitted reference range : >60 ML/MIN/1.73. Th e reference range was not used to interpr et this result as normal/abnormal . EGFR (test code = See_Comment [Automate d message] The 21167-1) system which ge nerated this result tra nsmitted reference range : >60 ML/MIN/1.73. Th e reference range was not used to interpr et this result as normal/abnormal . BUN/CREAT RATIO (test See_Comment [Auto mated message] The code = 3097-3) system which generated this result tra nsmitted reference range : 6 - 28 RATIO. The refe rence range was not u sed to interpret this result as normal/abnormal . SODIUM (test code = See_Comment [Automa tima message] The 2951-2) system which ge nerated this result tra nsmitted reference range : 133 - 146 MEQ/L. The reference range was not u sed to interpret this result as normal/abnormal . POTASSIUM (test code = See_Comment [Aut omated message] The 2823-3) system which ge nerated this result tra nsmitted reference range : 3.5 - 5.4 MEQ/L. The reference range was not u sed to interpret this result as normal/abnormal . CHLORIDE (test code = See_Comment [Auto mated message] The ) system which ge nerated this result tra nsmitted reference range : 100 - 112 MEQ/L. The reference range was not u sed to interpret this result as normal/abnormal . CO2 (test code = See_Comment [Automated message] The 1962-09) system which ge nerated this result tra nsmitted reference range : 21 - 30 MEQ/L. The refe rence range was not u sed to interpret this result as normal/abnormal . CALCIUM (test code = See_Comment [Autom ated message] The 28409-2) system which ge nerated this result tra nsmitted reference range : 8.5 - 10.5 MG/DL. The reference range was not used to interpr et this result as normal/abnormal . PROTEIN TOTAL (test See_Comment [Automa tima message] The code = 2885-2) system which generated this result tra nsmitted reference range : 6.1 - 8.1 G/DL. The r eference range was not u sed to interpret this result as normal/abnormal . ALBUMIN (test code = See_Comment [Autom ated message] The 59634-4) system which ge nerated this result tra nsmitted reference range : 3.4 - 4.8 G/DL. The r eference range was not u sed to interpret this result as normal/abnormal . GLOBULINS, SERUM, TOTAL See_Comment [Au tomated message] The (test code = 72500-2) system which generated this result tra nsmitted reference range : 1.9 - 3.7 G/DL. The r eference range was not u sed to interpret this result as normal/abnormal . A/G RATIO (test code = See_Comment [Aut omated message] The ) system which ge nerated this result tra nsmitted reference range : 1.0 - 2.6 RATIO. The reference range was not u sed to interpret this result as normal/abnormal . BILIRUBIN TOTAL (test See_Comment [Auto mated message] The code = 1974-03) system which generated this result tra nsmitted reference range : <=1.2 MG/DL. The refe rence range was not u sed to interpret this result as normal/abnormal . ALKALINE PHOSPHATASE 66 U/L 30-132 (test code = 6768-6) AST (SGOT) (test code = 25 U/L 7-56 1919-8) ALT (SGPT) (test code = 12 U/L 3-47 TESTING PERFORMED 1743-03) AT [facility], [place] [address] [place] [address] CLIA NO. [id number] Unless Other lewis Indicated, All Testing Performed At: [facility], [address] [place] [address] [employer] Technician: Maryann Suresh [id number] [place] o. [id number] [facility] W/AUTO DIFF WITH [id number] 15:44:55 Test Item Value Reference Range Interpretation Comments WHITE BLOOD CELL COUNT See_Comment [Aut omated message] (test code = 50547-5) The sy stem which generated this result transmitted ref erence range: 3.5 - 10 .0 K/UL. The reference r maryanne was not used to int erpret this result as normal/abnormal . RED BLOOD CELL COUNT See_Comment [Autom ated message] (test code = 65401-7) The sy stem which generated this result transmitted ref erence range: 4.30 - 5 .70 M/UL. The refer ence range was not u sed to interpret this result as normal/abnor mal. HEMOGLOBIN (test code = See_Comment [Au tomated message] 718-7) The system whic h generated this result transmitted ref erence range: 13.5 - 1 7.0 G/DL. The refer ence range was not u sed to interpret this result as normal/abnor mal. HEMATOCRIT (test code = 44.5 % 38-50 80133-7) MEAN CORPUSCULAR VOLUME 90.6 fL 80-99 (test code = 52426-8) MEAN CORPUSCULAR 31.6 PG 25-34 HEMOGLOBIN (test code = 75611-7) MEAN CORPUSCULAR See_Comment [Automated message] HEMOGLOBIN CONC (test The sy stem which code = 17176-7) generated th is result transmitted ref erence range: 31.0 - 3 6.0 G/DL. The refer ence range was not u sed to interpret this result as normal/abnor mal. RED CELL DISTRIBUTION 13.6 % 11.5-15 WIDTH (test code = 86037-2) NEUTROPHILS % (test 59 % 40-75 code = 91853-3) LYMPHOCYTES % (test 30 % 20-45 code = 13297-1) MONOCYTES % (test code 10 % 4-12 = 76268-2) EOSINOPHILS % (test 2 % 0-7 code = 43651-8) BASOPHILS % (test code 0 % 0-2 = 73151-6) PLATELET COUNT (test See_Comment T ESTING PERFORMED code = 81970-9) AT [facility], [facility] [address] [place] [address] CLIA NO. [id number] Unless Otherwis e Indicated, All Testing Performed At: [facility], [address] [place] [address] [employer] Processing Technician: Kostas Cruz M.D. CLIA Number [id number] [place] [id number] [Auto mated message] The sy stem which generated this result transmit tima reference range : 130 - 400 K/UL. The r eference range was not u sed to interpret this result as normal/abnor mal. [facility] [id number] 09:03:00Unlisted Reason for Exam - Click Yes and Enter Reason Below->No Anesthesia:->None Deos the patient have an implanted electronic device?->NoFINAL REPORT MR, BRAIN, WITH \\T\\ WITHOUT CONTRAST INDICATION: Brain tumor, primary TECHNIQUE: Multiplanar, multisequence MR imaging of the brain was obtained before and after uneventful administration of gadolinium contrast. COMPARISON: August 10, 2019, July 15, 2019 FINDINGS:A nonenhancing focus of T2 hyperintensity in the superior frontal gyrus on the right is again noted without significant interval change in overall volume (seen best on FLAIR image 25 of the current exam). The surgical site demonstrates stable granulation tissue affecting the dural surfaces as well as unchanged and anatomic positioning of the calvarial flap. Adjacent FLAIR hyperintensity and volume loss of predominantly the right anterior temporal lobe is stable. More inferiorly at the resection site, contr ast enhancement is slightly less conspicuous than in the current examination but with overall similar volume. No new lesions have developed. Passive expansion of the temporal ventricular horn is stable. There is no new abnormality of the skull base or calvarium. No layering fluid is noted in paranasalsinuses. Trace bilateral mastoid effusions are present. Orbital contents are unremarkable. IMPRESSION: Continued positive treatment response demonstrated by decrease in conspicuity of the enhancingportions of the resection cavity in the right temporal lobe region. Unchanged flair hyperintensitiesover multiple prior exams. Signed: JR Schaffer Robert MDReport Verified Date/Time: 11/04/2019 09:03:58 Reading Location: [address] Neuro Reading Room CBC WITH MAN DIFF & ABSOLUTE [id number] 18:41:07 Test Item Value Reference Range Interpretation Comments WHITE BLOOD CELL COUNT See_Comment [Aut omated message] (test code = 14130-2) The sy stem which generated this result transmitted ref erence range: 3.5 - 10 .0 K/UL. The refer ence range was not u sed to interpret this result as normal/abnor mal. RED BLOOD CELL COUNT See_Comment [Autom ated message] (test code = 77589-6) The sy stem which generated this result transmitted ref erence range: 4.30 - 5 .70 M/UL. The refer ence range was not u sed to interpret this result as normal/abnor mal. HEMOGLOBIN (test code = See_Comment [Au tomated message] 718-7) The system [employer] generated this result transmitted ref erence range: 13.5 - 1 7.0 G/DL. The refer ence range was not u sed to interpret this result as normal/abnor mal. HEMATOCRIT (test code = 44.3 % 38-50 50299-6) MEAN CORPUSCULAR VOLUME 89.5 fL 80-99 (test code = 54377-9) MEAN CORPUSCULAR 31.7 PG 25-34 HEMOGLOBIN (test code = 14249-3) MEAN CORPUSCULAR See_Comment [Automated message] HEMOGLOBIN CONC (test The sy stem which code = 68212-6) generated th is result transmitted ref erence range: 31.0 - 3 6.0 G/DL. The refer ence range was not u sed to interpret this result as normal/abnor mal. RED CELL DISTRIBUTION 14.7 % 11.5-15 WIDTH (test code = 67022-4) NEUTROPHILS % (test 66 % 40-75 SEGMENTED code = 53378-0) NEUTROPHILS, MANUAL DIFFERENTIAL. BANDS % (test code = 0 % 0-8 66271-7) LYMPHOCYTES % (test 28 % 20-45 code = 09903-6) MONOCYTES % (test code 4 % 4-12 = 70676-2) EOSINOPHILS % (test 2 % 0-7 code = 27502-3) BASOPHILS % (test code 0 % 0-2 = 02383-9) PLATELET COUNT (test See_Comment [Autom ated message] code = 14954-8) The system [employer] generated this result transmitted ref erence range: 130 - 40 0 K/UL. The reference r maryanne was not used to interpret this result as normal/abnor mal. NEUTROPHILS ABSOLUTE See_Comment [Autom ated message] COUNT (test code = The syste m which 70053-1) generated this result transmitted ref erence range: 1.50 - 7 .50 K/UL. The refer ence range was not u sed to interpret this result as normal/abnor mal. LYMPHOCYTES ABSOLUTE See_Comment [Autom ated message] COUNT (test code = The syste m which 37624-6) generated this result transmitted ref erence range: 0.80 - 4 .00 K/UL. The refer ence range was not u sed to interpret this result as normal/abnor mal. MONOCYTES CSF (test See_Comment L [Automa tima message] code = 91886-9) The system [employer] generated this result transmitted ref erence range: 0.40 - 1 .00 K/UL. The refer ence range was not u sed to interpret this result as normal/abnor mal. BASOPHILS ABSOLUTE See_Comment [Automat ed message] COUNT (test code = The syste m which 59503-6) generated this result transmitted ref erence range: 0.00 - 0 .20 K/UL. The refer ence range was not u sed to interpret this result as normal/abnor mal. COMMENTS (test code = (NOTE) RBC'S ARE 09747-5) NORMOCHROMIC/NO RMOCYTI C PL ATELETS APPEAR ADEQUATE PLATELETS A PPEAR NORMAL CARIDAD TING PERFORMED AT [facility], [place] [address] [place] [address] CLIA NO. [id number] NOTE: NEW REFERENCE R ANGES ARE GIVEN FOR S EVERAL COMPONENTS O F THE COMPLETE BLOOD COUNT WITH NEW AGE AN D GENDER STRATIFICATIONS EFFECTIVE 05/03. PLEASE REVIEW R ESULTS, FLAGGING AND REFERENCE RANGE S CAREFULLY. Unless Otherwis e Indicated, All Testing Performed At: [facility], [address] [facility], [place] [address] Laboratory Dire ctor: Kostas peng M.D. CLIA Num ning [id number] Cap Accreditation [place] o. [id number] Lab Interpretation Abnormal (test code = 99508-8) [facility] [id number] 18:37:24 Test Item Value Reference Range Interpretation Comments GLUCOSE (test code = See_Comment [Autom ated message] 1775-7) The system [employer] generated this result transmitted ref erence range: 70 - 99 MG/DL. The reference r maryanne was not used to interpret this result as normal/abnor mal. BLOOD UREA NITROGEN See_Comment [Automa tima message] (test code = 3091-6) The sys tem which generated this result transmitted ref erence range: 8 - 23 M G/DL. The reference r maryanne was not used to interpret this result as normal/abnor mal. CREATININE (test code = See_Comment [Au tomated message] 2160-0) The system [employer] generated this result transmitted ref erence range: 0.80 - 1 .40 MG/DL. The refe rence range was not u sed to interpret this result as normal/abnor mal. EGFR AA (test code = See_Comment [Autom ated message] 13133-7) The system [employer] generated this result transmitted ref erence range: >60 ML/MIN/1.73. Th e reference range was not used to int erpret this result as normal/abnormal . EGFR (test code = See_Comment [Automate d message] 08728-2) The system [facility] [employer] generated this result transmitted ref erence range: >60 ML/MIN/1.73. Th e reference range was not used to int erpret this result as normal/abnormal . BUN/CREAT RATIO (test See_Comment [Auto mated message] code = 3097-3) The system [employer] generated this result transmitted ref erence range: 6 - 28 R ATIO. The reference r maryanne was not used to interpret this result as normal/abnor mal. SODIUM (test code = See_Comment [Automa tima message] 2951-2) The system [facility] [employer] generated this result transmitted ref erence range: 133 - 14 6 MEQ/L. The refe rence range was not u sed to interpret this result as normal/abnor mal. POTASSIUM (test code = See_Comment [Aut omated message] 8193-3) The system [facility] [employer] generated this result transmitted ref erence range: 3.5 - 5. 4 MEQ/L. The refe rence range was not u sed to interpret this result as normal/abnor mal. CHLORIDE (test code = See_Comment [Auto mated message] 2074-0) The system [facility] [employer] generated this result transmitted ref erence range: 100 - 11 2 MEQ/L. The refe rence range was not u sed to interpret this result as normal/abnor mal. CO2 (test code = See_Comment H [Automated message] 8) The system [facility] [employer] generated this result transmitted ref erence range: 21 - 30 MEQ/L. The reference r maryanne was not used to interpret this result as normal/abnor mal. CALCIUM (test code = See_Comment [Autom ated message] 17960-1) The system [facility] [employer] generated this result transmitted ref erence range: 8.5 - 10 .5 MG/DL. The refe rence range was not u sed to interpret this result as normal/abnor mal. PROTEIN TOTAL (test See_Comment [Automa tima message] code = 2885-2) The system [facility] generated this result transmitted ref erence range: 6.1 - 8. 1 G/DL. The reference r maryanne was not used to interpret this result as normal/abnor mal. ALBUMIN (test code = See_Comment [Autom ated message] 74714-9) The system [employer] generated this result transmitted ref erence range: 3.4 - 4. 8 G/DL. The reference r maryanne was not used to interpret this result as normal/abnor mal. GLOBULINS, SERUM, TOTAL See_Comment [Au tomated message] (test code = 17870-0) The sy stem which generated this result transmitted ref erence range: 1.9 - 3. 7 G/DL. The reference r maryanne was not used to interpret this result as normal/abnor mal. A/G RATIO (test code = See_Comment [Aut omated message] 1759-0) The system [employer] generated this result transmitted ref erence range: 1.0 - 2. 6 RATIO. The refe rence range was not u sed to interpret this result as normal/abnor mal. BILIRUBIN TOTAL (test See_Comment [Auto mated message] code = 1975-2) The system [facility] generated this result transmitted ref erence range: <=1.2 MG /DL. The reference r maryanne was not used to interpret this result as normal/abnor mal. ALKALINE PHOSPHATASE 54 U/L 30-132 (test code = 6768-6) AST (SGOT) (test code = 22 U/L 7-56 1920-8) ALT (SGPT) (test code = 17 U/L 3-47 TESTING 1744-2) PERFORMED AT [facility], [place] [facility] [address] [place] [address] CLIA NO. [id number] Unless Otherwis e Indicated, All Testing Performed At: [facility], [address] [facility] [place] [address] Laboratory Dire ctor: Kostas peng M.D. CLIA Num ning [id number] Cap Accreditation [place] o. [id number] Lab Interpretation Abnormal (test code = 26138-6) [facility] / WITH IV [id number] 14:05:00FINAL REPORT EXAMINATION: MRI of the brain HISTORY: 59-year-old male with glioblastoma, IDH wild-type, MGMT methylated, status post surgical resection on 11/05/2018, followed by concurrent chemoradiation from 12/07/2018 to 01/23/2019; adjuvant Temodar, currently cycle #8.COMPARISON: Brain MRI of 07/15/2019, 05/20/2019 and 02/23/2019TECHNIQUE: Sagittal T2; axial DWI, FLAIR, T1-IR, SWI; coronal FLAIR. Postcontrast sagittal T1 ultrathin slice 3D CUBE with coronal and axial reformations.. MR perfusion images were obtained as well.Intravenous contrast: 8 mL Gadavist FINDINGS: Brainsignal intensity: 1.No significantly change right inferior/anterior temporal surgical resection siteand minimal inferior marginal spiculated "nonmeasurable" enhancement (by RANO criteria, about 9 x 6 mm, when measured in the coronal plane), compared to MRI of 07/15/2019. Also unchanged nonspecific specific minimal irregular and nonmeasurable enhancement in the inferior margin of the left parahippocampal region. Stable surrounding FLAIR hyperintensity. No definite increase perfusion or restricted diffusion. The findings are likely postoperative in nature.2.Stable nonspecific FLAIR hyperintensity around the right superior frontal gyrus, involving mainly the cortical subcortical lateral aspect of thesuperior frontal gyrus. No associated mass effect or enhancement. This lesion may correspond to an additional focus of glioblastoma (multifocal), close attention in follow-up images is advised.3.No acute or chronic infarcts. No new enhancing lesions. Brain stem: Normal Extra-axial spaces: No abnormal signal intensity or fluid collections. Vessels: Expected flow voids present in the major arteries and dural sinuses. Brain volume: Within normal limits for age. Ventricles: Normal size, shape, and position. Craniocervical junction: Normal. Paranasal and mastoid sinuses: Clear Bones: Stable right pterional craniotomy and expected postsurgical changes. Sella turcica: No definite sellar or suprasellar mass IMPRESSION: 1.Stable mild likely postsurgical marginal enhancement along the right inferior temporal surgical resection site compared to MRI of 07/15/2019. Also stable surrounding FLAIR hyperintensity. No evidence of disease progression. 2.Unchanged nonspecific FLAIR hyperintense lesion in the right superior frontal gyrus as above. Signed: Laura Martinez MDReport Verified Date/Time: 09/09/2019 14:05:37 Reading Location: [facility] Reading Room [address] [place] [address] MR, BRAIN, WITHOUT / WITH IV CONTRAST 2019-07-16 13:25:00FINAL REPORT Examination: MR, BRAIN, WITHOUT / WITH IV CONTRASTHistory: 59-year-old male with glioblastoma and recently underwent adjuvant Temodar cycle #5.Comparison studies: Multiple brain MRIs with the most recent performed May 20, 2019 Technique:Pre-contrast: Sagittal T2; axial T1, GRE or SWI, DWI, T2 FLAIRPost-contrast: axial, sagittal and coronal T1. Intravenous contrast: 17 mL Gadavist. Findings: Scalp: No abnormal signal. No masses.Bone marrow: Normal in signal intensity. Brain volume: Adequate for age. No volume loss.Ventricles: Normal in size and configuration.No hydrocephalus. Parenchyma:Increased conspicuity of the right superior frontal gyrus signal change without associated enhancement or diffusion restriction.A new nodular area of enhancement 0.7 x 1.1 x 0.5cm (superoinferior x anteroposterior x transverse dimensions) with associated T2 signal change (series 4, image #10) in the right hippocampal region is concerning for tumor recurrence.Increase thickness of the nodular enhancement along the inferior margin of the right temporal lobe that now measures 1.1 x 0.6 x 0.9cm (superoinferior x anteroposterior x transverse dimensions) and previously measu red 0.4 cm in superoinferior dimension. Unchanged FLAIR signal change in the right temporal lobe anddeep to prior right temporal craniotomy.No hemorrhage or acute vascular insults. Extra-axial spaces:No lesion, fluid collection or hematoma. Enhancement: As above. Suprasellar and sellar region: No abno rmalities.Craniocervical junction: No abnormalities. The foramen magnum is patent. No Chiari malformations.Vessels: Normal flow-voids in the arteries and sinuses. Additional findings:Mild inflammatory mucosal thickening of the bilateral maxillary sinuses and ethmoid air cells. IMPRESSION:New nodular en hancement of the right hippocampal region with associated signal change is concerning for tumor recurrence when compared to prior brain MRI performed May 20, 2019. Interval progression of nodular enhancement along the inferior margin the right temporal lobe now measures 1.1 x 0.6 x 0.9 cm, previously0.4 cm and could represent treatment-related change or tumor recurrence. Signed: Louise Hahn MDReport Verified Date/Time: 07/16/2019 13:25:07 Reading Location: [facility] Reading Room [address] [place] [address] [id number] 08:52:00 Test Item Value Reference Range Interpretation Comments POC-CREATININE 1.1 mg/dL 0.6-1.3 : TESTED AT [facility] ([facility]) (test [address] code = 1859) A, [place] [address]: Geospatial Program Management Officer/Techni duglas ID = [id number] for LETTY BANEGAS POC-EGFR 82 mL/min/1.73M2 ([facility]) (test code = 1860) CBC WITH MAN DIFF & ABSOLUTE [id number] 16:21:51 Test Item Value Reference Range Interpretation Comments WHITE BLOOD CELL COUNT See_Comment [Aut omated message] (test code = 67167-3) The sy stem which generated this result transmitted ref erence range: 3.5 - 10 .0 K/UL. The refer ence range was not u sed to interpret this result as normal/abnor mal. RED BLOOD CELL COUNT See_Comment [Autom ated message] (test code = 77851-6) The sy stem which generated this result transmitted ref erence range: 4.30 - 5 .70 M/UL. The refer ence range was not u sed to interpret this result as normal/abnor mal. HEMOGLOBIN (test code = See_Comment [Au tomated message] 718-7) The system ic h generated this result transmitted ref erence range: 13.5 - 1 7.0 G/DL. The refer ence range was not u sed to interpret this result as normal/abnor mal. HEMATOCRIT (test code = 42.5 % 38-50 25661-1) MEAN CORPUSCULAR VOLUME 88.5 fL 80-99 (test code = 05578-5) MEAN CORPUSCULAR 30.4 PG 25-34 HEMOGLOBIN (test code = 45197-5) MEAN CORPUSCULAR See_Comment [Automated message] HEMOGLOBIN CONC (test The sy stem which code = 88647-5) generated th is result transmitted ref erence range: 31.0 - 3 6.0 G/DL. The refer ence range was not u sed to interpret this result as normal/abnor mal. RED CELL DISTRIBUTION 14.7 % 11.5-15 WIDTH (test code = 90328-0) NEUTROPHILS % (test 70 % 40-75 SEGMENTED code = 13441-2) NEUTROPHILS, MANUAL DIFFERENTIAL. BANDS % (test code = 0 % 0-8 62427-9) LYMPHOCYTES % (test 25 % 20-45 code = 78483-8) MONOCYTES % (test code 5 % 4-12 = 42491-6) EOSINOPHILS % (test 0 % 0-7 code = 95108-7) BASOPHILS % (test code 0 % 0-2 = 75443-3) PLATELET COUNT (test See_Comment [Autom ated message] code = 56718-2) The system GOSO generated this result transmitted ref erence range: 130 - 40 0 K/UL. The reference r maryanne was not used to interpret this result as normal/abnor mal. NEUTROPHILS ABSOLUTE See_Comment [Autom ated message] COUNT (test code = The syste m which 52813-3) generated this result transmitted ref erence range: 1.50 - 7 .50 K/UL. The refer ence range was not u sed to interpret this result as normal/abnor mal. LYMPHOCYTES ABSOLUTE See_Comment [Autom ated message] COUNT (test code = The syste m which 38220-7) generated this result transmitted ref erence range: 0.80 - 4 .00 K/UL. The refer ence range was not u sed to interpret this result as normal/abnor mal. MONOCYTES CSF (test See_Comment L [Automa tima message] code = 08091-7) The system GOSO generated this result transmitted ref erence range: 0.40 - 1 .00 K/UL. The refer ence range was not u sed to interpret this result as normal/abnor mal. BASOPHILS ABSOLUTE See_Comment [Automat ed message] COUNT (test code = The syste m which 68156-8) generated this result transmitted ref erence range: 0.00 - 0 .20 K/UL. The refer ence range was not u sed to interpret this result as normal/abnor mal. COMMENTS (test code = (NOTE) RBC'S [place] 85266-9) NORMOCHROMIC/NO RMOCYTI C PL ATELETS APPEAR ADEQUATE PLATELETS A PPEAR NORMAL CARIDAD TING PERFORMED AT [facility] [place] [place] [address] CLIA NO. [id number] NOTE: NEW REFERENCE R ANGES ARE GIVEN FOR S EVERAL COMPONENTS O F THE COMPLETE BLOOD COUNT WITH NEW AGE AN D GENDER STRATIFICATIONS EFFECTIVE 05/03. PLEASE REVIEW R ESULTS, FLAGGING AND REFERENCE RANGE S CAREFULLY. Unless Otherwis e Indicated, All Testing Performed At: [facility], [address] [place] [address] Laboratory Dire ctor: Kostas peng M.D. CLIA Num ning [id number] [place]. [id number] Lab Interpretation Abnormal (test code = 35168-8) [facility] [id number] 16:19:45 Test Item Value Reference Range Interpretation Comments GLUCOSE (test code = See_Comment [Autom ated message] The 2345-7) system which ge nerated this result tra nsmitted reference range : 70 - 99 MG/DL. The refe rence range was not u sed to interpret this result as normal/abnormal . BLOOD UREA NITROGEN See_Comment [Automa tima message] The (test code = 3091-6) system which generated this result tra nsmitted reference range : 8 - 23 MG/DL. The refe rence range was not u sed to interpret this result as normal/abnormal . CREATININE (test code = See_Comment [Au tomated message] The 2160-0) system which ge nerated this result tra nsmitted reference range : 0.80 - 1.40 MG/DL. The reference range was not used to interpr et this result as normal/abnormal . EGFR AA (test code = See_Comment [Autom ated message] The 43543-8) system which ge nerated this result tra nsmitted reference range : >60 ML/MIN/1.73. Th e reference range was not used to interpr et this result as normal/abnormal . EGFR (test code = See_Comment [Automate d message] The 21646-1) system which ge nerated this result tra nsmitted reference range : >60 ML/MIN/1.73. Th e reference range was not used to interpr et this result as normal/abnormal . BUN/CREAT RATIO (test See_Comment [Auto mated message] The code = 3097-3) system which generated this result tra nsmitted reference range : 6 - 28 RATIO. The refe rence range was not u sed to interpret this result as normal/abnormal . SODIUM (test code = See_Comment [Automa tima message] The 2951-2) system which ge nerated this result tra nsmitted reference range : 133 - 146 MEQ/L. The reference range was not u sed to interpret this result as normal/abnormal . POTASSIUM (test code = See_Comment [Aut omated message] The 2823-3) system which ge nerated this result tra nsmitted reference range : 3.5 - 5.4 MEQ/L. The reference range was not u sed to interpret this result as normal/abnormal . CHLORIDE (test code = See_Comment [Auto mated message] The ) system which ge nerated this result tra nsmitted reference range : 100 - 112 MEQ/L. The reference range was not u sed to interpret this result as normal/abnormal . CO2 (test code = See_Comment [Automated message] The 1962-09) system which ge nerated this result tra nsmitted reference range : 21 - 30 MEQ/L. The refe rence range was not u sed to interpret this result as normal/abnormal . CALCIUM (test code = See_Comment [Autom ated message] The 89424-5) system which ge nerated this result tra nsmitted reference range : 8.5 - 10.5 MG/DL. The reference range was not used to interpr et this result as normal/abnormal . PROTEIN TOTAL (test See_Comment [Automa tima message] The code = 2885-2) system which generated this result tra nsmitted reference range : 6.1 - 8.1 G/DL. The r eference range was not u sed to interpret this result as normal/abnormal . ALBUMIN (test code = See_Comment [Autom ated message] The 84052-3) system which ge nerated this result tra nsmitted reference range : 3.4 - 4.8 G/DL. The r eference range was not u sed to interpret this result as normal/abnormal . GLOBULINS, SERUM, TOTAL See_Comment [Au tomated message] The (test code = 84182-5) system which generated this result tra nsmitted reference range : 1.9 - 3.7 G/DL. The r eference range was not u sed to interpret this result as normal/abnormal . A/G RATIO (test code = See_Comment [Aut omated message] The ) system which ge nerated this result tra nsmitted reference range : 1.0 - 2.6 RATIO. The reference range was not u sed to interpret this result as normal/abnormal . BILIRUBIN TOTAL (test See_Comment [Auto mated message] The code = 1974-03) system which generated this result tra nsmitted reference range : <=1.2 MG/DL. The refe rence range was not u sed to interpret this result as normal/abnormal . ALKALINE PHOSPHATASE 56 U/L 30-132 (test code = 6768-6) AST (SGOT) (test code = 21 U/L 7-56 1919-09) ALT (SGPT) (test code = 14 U/L 3-47 TESTING PERFORMED 1743-03) AT [facility], [place] [place] [address] CLIA NO. [id number] Unless Other lewis Indicated, All Testing Performed At: [facility], [address] [place] [address] Shale Processing Technician: Maryann Suresh [id number] [place] o. [id number] [facility] [id number] 18:10:28 Test Item Value Reference Range Interpretation Comments GLUCOSE (test code = See_Comment [Autom ated message] The 2344-08) system which ge nerated this result tra nsmitted reference range : 70 - 99 MG/DL. The refe rence range was not u sed to interpret this result as normal/abnormal . BLOOD UREA NITROGEN See_Comment [Automa tima message] The (test code = 3091-6) system which generated this result tra nsmitted reference range : 8 - 23 MG/DL. The refe rence range was not u sed to interpret this result as normal/abnormal . CREATININE (test code = See_Comment [Au tomated message] The 2160) system which ge nerated this result tra nsmitted reference range : 0.80 - 1.40 MG/DL. The reference range was not used to interpr et this result as normal/abnormal . EGFR AA (test code = See_Comment [Autom ated message] The 11877-4) system which ge nerated this result tra nsmitted reference range : >60 ML/MIN/1.73. Th e reference range was not used to interpr et this result as normal/abnormal . EGFR (test code = See_Comment [Automate d message] The 74214-7) system which ge nerated this result tra nsmitted reference range : >60 ML/MIN/1.73. Th e reference range was not used to interpr et this result as normal/abnormal . BUN/CREAT RATIO (test See_Comment [Auto mated message] The code = 3097-3) system which generated this result tra nsmitted reference range : 6 - 28 RATIO. The refe rence range was not u sed to interpret this result as normal/abnormal . SODIUM (test code = See_Comment [Automa tima message] The 295-2) system which ge nerated this result tra nsmitted reference range : 133 - 146 MEQ/L. The reference range was not u sed to interpret this result as normal/abnormal . POTASSIUM (test code = See_Comment [Aut omated message] The 2823-3) system which ge nerated this result tra nsmitted reference range : 3.5 - 5.4 MEQ/L. The reference range was not u sed to interpret this result as normal/abnormal . CHLORIDE (test code = See_Comment [Auto mated message] The ) system which ge nerated this result tra nsmitted reference range : 100 - 112 MEQ/L. The reference range was not u sed to interpret this result as normal/abnormal . CO2 (test code = See_Comment [Automated message] The 1962-09) system which ge nerated this result tra nsmitted reference range : 21 - 30 MEQ/L. The refe rence range was not u sed to interpret this result as normal/abnormal . CALCIUM (test code = See_Comment [Autom ated message] The 95572-2) system which ge nerated this result tra nsmitted reference range : 8.5 - 10.5 MG/DL. The reference range was not used to interpr et this result as normal/abnormal . PROTEIN TOTAL (test See_Comment [Automa tima message] The code = 2885-2) system which generated this result tra nsmitted reference range : 6.1 - 8.1 G/DL. The r eference range was not u sed to interpret this result as normal/abnormal . ALBUMIN (test code = See_Comment [Autom ated message] The 52574-5) system which ge nerated this result tra nsmitted reference range : 3.4 - 4.8 G/DL. The r eference range was not u sed to interpret this result as normal/abnormal . GLOBULINS, SERUM, TOTAL See_Comment [Au tomated message] The (test code = 83507-3) system which generated this result tra nsmitted reference range : 1.9 - 3.7 G/DL. The r eference range was not u sed to interpret this result as normal/abnormal . A/G RATIO (test code = See_Comment [Aut omated message] The 1758-0) system which ge nerated this result tra nsmitted reference range : 1.0 - 2.6 RATIO. The reference range was not u sed to interpret this result as normal/abnormal . BILIRUBIN TOTAL (test See_Comment [Auto mated message] The code = 1974-2) system which generated this result tra nsmitted reference range : <=1.2 MG/DL. The refe rence range was not u sed to interpret this result as normal/abnormal . ALKALINE PHOSPHATASE 65 U/L 30-132 (test code = 6768-6) AST (SGOT) (test code = 19 U/L 7-56 1919-8) ALT (SGPT) (test code = 13 U/L 3-47 TESTING PERFORMED 1743-03) AT CLINICAL PAT [facility], [place] [place] [address] CLIA NO. [id number] Unless Other lewis Indicated, All Testing Performed At: [facility], [address] [place] [address], [place] [address] Shale Processing Technician: Maryann Suresh [id number] [place]reditation [place] o. [id number] [facility] [id number] 18:10:28 Test Item Value Reference Range Interpretation Comments GLUCOSE (test code = See_Comment [Autom ated message] The 2345-7) system which ge nerated this result tra nsmitted reference range : 70 - 99 MG/DL. The refe rence range was not u sed to interpret this result as normal/abnormal . BLOOD UREA NITROGEN See_Comment [Automa tima message] The (test code = 3091-6) system which generated this result tra nsmitted reference range : 8 - 23 MG/DL. The refe rence range was not u sed to interpret this result as normal/abnormal . CREATININE (test code = See_Comment [Au tomated message] The 2160-0) system which ge nerated this result tra nsmitted reference range : 0.80 - 1.40 MG/DL. The reference range was not used to interpr et this result as normal/abnormal . EGFR AA (test code = See_Comment [Autom ated message] The 81020-7) system which ge nerated this result tra nsmitted reference range : >60 ML/MIN/1.73. Th e reference range was not used to interpr et this result as normal/abnormal . EGFR (test code = See_Comment [Automate d message] The 95154-6) system which ge nerated this result tra nsmitted reference range : >60 ML/MIN/1.73. Th e reference range was not used to interpr et this result as normal/abnormal . BUN/CREAT RATIO (test See_Comment [Auto mated message] The code = 3097-3) system which generated this result tra nsmitted reference range : 6 - 28 RATIO. The refe rence range was not u sed to interpret this result as normal/abnormal . SODIUM (test code = See_Comment [Automa tima message] The 2951-2) system which ge nerated this result tra nsmitted reference range : 133 - 146 MEQ/L. The reference range was not u sed to interpret this result as normal/abnormal . POTASSIUM (test code = See_Comment [Aut omated message] The 2823-3) system which ge nerated this result tra nsmitted reference range : 3.5 - 5.4 MEQ/L. The reference range was not u sed to interpret this result as normal/abnormal . CHLORIDE (test code = See_Comment [Auto mated message] The ) system which ge nerated this result tra nsmitted reference range : 100 - 112 MEQ/L. The reference range was not u sed to interpret this result as normal/abnormal . CO2 (test code = See_Comment [Automated message] The 1962-09) system which ge nerated this result tra nsmitted reference range : 21 - 30 MEQ/L. The refe rence range was not u sed to interpret this result as normal/abnormal . CALCIUM (test code = See_Comment [Autom ated message] The ) system which ge nerated this result tra nsmitted reference range : 8.5 - 10.5 MG/DL. The reference range was not used to interpr et this result as normal/abnormal . PROTEIN TOTAL (test See_Comment [Automa tima message] The code = 2885-2) system which generated this result tra nsmitted reference range : 6.1 - 8.1 G/DL. The r eference range was not u sed to interpret this result as normal/abnormal . ALBUMIN (test code = See_Comment [Autom ated message] The 07837-5) system which ge nerated this result tra nsmitted reference range : 3.4 - 4.8 G/DL. The r eference range was not u sed to interpret this result as normal/abnormal . GLOBULINS, SERUM, TOTAL See_Comment [Au tomated message] The (test code = 98999-1) system which generated this result tra nsmitted reference range : 1.9 - 3.7 G/DL. The r eference range was not u sed to interpret this result as normal/abnormal . A/G RATIO (test code = See_Comment [Aut omated message] The ) system which ge nerated this result tra nsmitted reference range : 1.0 - 2.6 RATIO. The reference range was not u sed to interpret this result as normal/abnormal . BILIRUBIN TOTAL (test See_Comment [Auto mated message] The code = 1974-) system which generated this result tra nsmitted reference range : <=1.2 MG/DL. The refe rence range was not u sed to interpret this result as normal/abnormal . ALKALINE PHOSPHATASE 65 U/L 30-132 (test code = 6768-6) AST (SGOT) (test code = 19 U/L 7-56 1919-8) ALT (SGPT) (test code = 13 U/L 3-47 TESTING PERFORMED 1743-03) AT [facility], [address] [place] [place] [address] CLIA NO. [id number] Unless Other lewis Indicated, All Testing Performed At: [facility], [address] [place] [address] Shale Processing Technician: Maryann SureshIA Numbiain r [id number] [place] o. [id number] [facility] WITH MAN DIFF & ABSOLUTE [id number] 18:05:18 Test Item Value Reference Range Interpretation Comments WHITE BLOOD CELL COUNT See_Comment [Aut omated message] (test code = 16494-9) The sy stem which generated this result transmitted ref erence range: 3.5 - 10 .0 K/UL. The reference r maryanne was not used to int erpret this result as normal/abnormal . RED BLOOD CELL COUNT See_Comment [Autom ated message] (test code = 76095-3) The sy stem which generated this result transmitted ref erence range: 4.30 - 5 .70 M/UL. The refer ence range was not u sed to interpret this result as normal/abnor mal. HEMOGLOBIN (test code = See_Comment [Au tomated message] 718-7) The system whic h generated this result transmitted ref erence range: 13.5 - 1 7.0 G/DL. The refer ence range was not u sed to interpret this result as normal/abnor mal. HEMATOCRIT (test code = 42.0 % 38-50 31385-3) MEAN CORPUSCULAR VOLUME 87.7 fL 80-99 (test code = 47328-8) MEAN CORPUSCULAR 29.9 PG 25-34 HEMOGLOBIN (test code = 04463-6) MEAN CORPUSCULAR See_Comment [Automated message] HEMOGLOBIN CONC (test The sy stem which code = 10192-3) generated th is result transmitted ref erence range: 31.0 - 3 6.0 G/DL. The refer ence range was not u sed to interpret this result as normal/abnor mal. RED CELL DISTRIBUTION 14.2 % 11.5-15 WIDTH (test code = 32112-8) NEUTROPHILS % (test 58 % 40-75 SEGMENTED code = 16114-8) NEUTROPHILS, MANUAL DIFFERENTIAL. BANDS % (test code = 0 % 0-8 41200-1) LYMPHOCYTES % (test 33 % 20-45 code = 42140-4) MONOCYTES % (test code 6 % 4-12 = 74165-6) EOSINOPHILS % (test 3 % 0-7 code = 15616-5) BASOPHILS % (test code 0 % 0-2 = 98701-4) PLATELET COUNT (test See_Comment [Autom ated message] code = 20256-2) The system GOSO generated this result transmitted ref erence range: 130 - 40 0 K/UL. The reference r maryanne was not used to int erpret this result as normal/abnormal . NEUTROPHILS ABSOLUTE See_Comment [Autom ated message] COUNT (test code = The syste m which 55794-1) generated this result transmitted ref erence range: 1.50 - 7 .50 K/UL. The refer ence range was not u sed to interpret this result as normal/abnor mal. LYMPHOCYTES ABSOLUTE See_Comment [Autom ated message] COUNT (test code = The syste m which 41635-5) generated this result transmitted ref erence range: 0.80 - 4 .00 K/UL. The refer ence range was not u sed to interpret this result as normal/abnor mal. MONOCYTES CSF (test See_Comment [Automa tima message] code = 20752-0) The system GOSO generated this result transmitted ref erence range: 0.40 - 1 .00 K/UL. The refer ence range was not u sed to interpret this result as normal/abnor mal. BASOPHILS ABSOLUTE See_Comment [Automat ed message] COUNT (test code = The syste m which 08818-4) generated this result transmitted ref erence range: 0.00 - 0 .20 K/UL. The refer ence range was not u sed to interpret this result as normal/abnor mal. COMMENTS (test code = (NOTE) RBC'S ARE 89135-1) NORMOCHROMIC/NO RMOCYTIC PLAT ELETS APPEAR ADEQUATE PLATELETS AP PEAR NORMAL CARIDAD TING PERFORMED AT [facility] [address] [place], [place] [address] CLIA NO. [id number] NOTE: NEW REFER ENCE RANGES ARE GIVE N FOR SEVERAL COMPONE NTS OF THE COMPLETE BLOOD COUNT WITH NEW AGE AND GENDER STRATIFICATIONS EFFECTIVE 05/03. PLEASE REVIEW R ESULTS, FLAGGING AND REFERENCE RANGE S CAREFULLY. Unless Otherwis e Indicated, All Testing Performed At: [facility], [address] [place] [address] Shale Processing Technician: Kostas Cruz M.D. CLIA Number [id number] [place] [id number] [facility] WITH MAN DIFF & ABSOLUTE [id number] 18:05:18 Test Item Value Reference Range Interpretation Comments WHITE BLOOD CELL COUNT See_Comment [Aut omated message] (test code = 42108-1) The sy stem which generated this result transmitted ref erence range: 3.5 - 10 .0 K/UL. The reference r maryanne was not used to int erpret this result as normal/abnormal . RED BLOOD CELL COUNT See_Comment [Autom ated message] (test code = 21846-1) The sy stem which generated this result transmitted ref erence range: 4.30 - 5 .70 M/UL. The refer ence range was not u sed to interpret this result as normal/abnor mal. HEMOGLOBIN (test code = See_Comment [Au tomated message] 718-7) The system whic h generated this result transmitted ref erence range: 13.5 - 1 7.0 G/DL. The refer ence range was not u sed to interpret this result as normal/abnor mal. HEMATOCRIT (test code = 42.0 % 38-50 82795-8) MEAN CORPUSCULAR VOLUME 87.7 fL 80-99 (test code = 35929-6) MEAN CORPUSCULAR 29.9 PG 25-34 HEMOGLOBIN (test code = 45514-7) MEAN CORPUSCULAR See_Comment [Automated message] HEMOGLOBIN CONC (test The sy stem which code = 95168-7) generated th is result transmitted ref erence range: 31.0 - 3 6.0 G/DL. The refer ence range was not u sed to interpret this result as normal/abnor mal. RED CELL DISTRIBUTION 14.2 % 11.5-15 WIDTH (test code = 68673-0) NEUTROPHILS % (test 58 % 40-75 SEGMENTED code = 65353-9) NEUTROPHILS, MANUAL DIFFERENTIAL. BANDS % (test code = 0 % 0-8 84588-6) LYMPHOCYTES % (test 33 % 20-45 code = 58144-7) MONOCYTES % (test code 6 % 4-12 = 64084-8) EOSINOPHILS % (test 3 % 0-7 code = 05971-5) BASOPHILS % (test code 0 % 0-2 = 88286-8) PLATELET COUNT (test See_Comment [Autom ated message] code = 27595-1) The system w [employer] generated this result transmitted ref erence range: 130 - 40 0 K/UL. The reference r maryanne was not used to int erpret this result as normal/abnormal . NEUTROPHILS ABSOLUTE See_Comment [Autom ated message] COUNT (test code = The syste m which 36727-1) generated this result transmitted ref erence range: 1.50 - 7 .50 K/UL. The refer ence range was not u sed to interpret this result as normal/abnor mal. LYMPHOCYTES ABSOLUTE See_Comment [Autom ated message] COUNT (test code = The syste m which 38732-4) generated this result transmitted ref erence range: 0.80 - 4 .00 K/UL. The refer ence range was not u sed to interpret this result as normal/abnor mal. MONOCYTES CSF (test See_Comment [Automa tima message] code = 89981-1) The system [employer] generated this result transmitted ref erence range: 0.40 - 1 .00 K/UL. The refer ence range was not u sed to interpret this result as normal/abnor mal. BASOPHILS ABSOLUTE See_Comment [Automat ed message] COUNT (test code = The syste m which 62802-7) generated this result transmitted ref erence range: 0.00 - 0 .20 K/UL. The refer ence range was not u sed to interpret this result as normal/abnor mal. COMMENTS (test code = (NOTE) RBC'S ARE 29806-5) NORMOCHROMIC/NO RMOCYTIC PLAT ELETS APPEAR ADEQUATE PLATELETS AP PEAR NORMAL CARIDAD TING PERFORMED AT [facility] [address] [place], [place] [address] CLIA NO. [id number] NOTE: NEW REFER ENCE RANGES ARE GIVE N FOR SEVERAL COMPONE NTS OF THE COMPLETE BLOOD COUNT WITH NEW AGE AND GENDER STRATIFICATIONS EFFECTIVE 05/03. PLEASE REVIEW R ESULTS, FLAGGING AND REFERENCE RANGE S CAREFULLY. Unless Otherwis e Indicated, All Testing Performed At: Clinical Pathol [facility], [address] [place] [address] [employer]ale Processing Technician: Kostas Cruz M.D. CLIA Number [id number] [facility] [place] [id number] [facility], [facility] / WITH IV [id number] 13:37:00FINAL REPORT Examination: MR, BRAIN, WITHOUT / WITH IV CONTRAST History: Glioblastoma; follow up exam Comparison studies: Multiple brain MRIs with most recent dated 02/23/2019 Technique:Pre-contrast: Sagittal T2; axial T1, GRE or SWI, DWI, T2 FLAIRPost-contrast: axial, sagittal and coronal T1. Intravenous contrast: 8 mL Gadavist. Findings: Scalp: No abnormal signal. No masses.Bone marrow: As below. Brain volume: Adequate for age. No volume loss.Ventricles: No hydrocephalus.Parenchyma:Unchanged FLAIR signal within the right temporal lobe and ex vacuo dilatation of the temporal horn of the right lateral ventricle deep to the right pterional craniotomy. Smooth dural enhancement is again demonstrated along the right temporal convexity from prior surgery. There is unchanged thin enhancement along the inferior margin of the resection cavity with a nodule of enhancement measuring 4.4 mm, which is new from prior exam and is most probably related to further retraction of the surgical cavity.No new masses, hemorrhage, or acute or chronic vascular insults. Extra-axial spaces:Nolesion, fluid collection or hematoma. Enhancement: As above. Suprasellar and sellar region: No abnorm alities.Craniocervical junction: No abnormalities. The foramen magnum is patent. No Chiari malformations.Vessels: Normal flow-voids in the arteries and sinuses. Additional findings: Mild inflammatory mucosal thickening of the bilateral maxillary sinuses and ethmoid air cells. IMPRESSION: No progression of signal change or diffusion restriction in the right temporal lobe. No new area of abnormal enhancement to suggest new focus of glioblastoma. Further interval retraction of the right temporal surgical cavity with a new 4.4 mm nodule, most probably related to prior surgery, when compared to prior examination performed February 23, 2019. Attention on follow-up is recommended to ensure that this does not represent disease progression. Signed: Louise Hahn MDReport Verified Date/Time: 05/20/2019 13:37:49 Reading Location: [facility] Reading Room [address] [place] [address] -[id number] 07:48:00 Test Item Value Reference Range Interpretation Comments POC-CREATININE 1.2 mg/dL 0.6-1.3 : TESTED AT [facility] ([facility]) (test [address] [facility] E BLDG code = 1859) [facility] 7 7030: Geospatial Program Management Officer/Techni duglas ID = [id number] for WILLIAM JOYA ICA POC-EGFR 75 mL/min/1.73M2 ([facility]) (test code = 1860) COMPREHENSIVE METABOLIC [id number] 18:43:08 Test Item Value Reference Range Interpretation Comments GLUCOSE (test code = See_Comment [Autom ated message] The 2345-7) system which ge nerated this result tra nsmitted reference range : 70 - 99 MG/DL. The refe rence range was not u sed to interpret this result as normal/abnormal . BLOOD UREA NITROGEN See_Comment [Automa tima message] The (test code = 3091-6) system which generated this result tra nsmitted reference range : 8 - 23 MG/DL. The refe rence range was not u sed to interpret this result as normal/abnormal . CREATININE (test code = See_Comment [Au tomated message] The 2160-0) system which ge nerated this result tra nsmitted reference range : 0.80 - 1.40 MG/DL. The reference range was not used to interpr et this result as normal/abnormal . EGFR AA (test code = See_Comment [Autom ated message] The 49300-5) system which ge nerated this result tra nsmitted reference range : >60 ML/MIN/1.73. Th e reference range was not used to interpr et this result as normal/abnormal . EGFR (test code = See_Comment [Automate d message] The 74312-7) system which ge nerated this result tra nsmitted reference range : >60 ML/MIN/1.73. Th e reference range was not used to interpr et this result as normal/abnormal . BUN/CREAT RATIO (test See_Comment [Auto mated message] The code = 3097-3) system which generated this result tra nsmitted reference range : 6 - 28 RATIO. The refe rence range was not u sed to interpret this result as normal/abnormal . SODIUM (test code = See_Comment [Automa tima message] The 295-) system which ge nerated this result tra nsmitted reference range : 133 - 146 MEQ/L. The reference range was not u sed to interpret this result as normal/abnormal . POTASSIUM (test code = See_Comment [Aut omated message] The 2822-3) system which ge nerated this result tra nsmitted reference range : 3.5 - 5.4 MEQ/L. The reference range was not u sed to interpret this result as normal/abnormal . CHLORIDE (test code = See_Comment [Auto mated message] The ) system which ge nerated this result tra nsmitted reference range : 100 - 112 MEQ/L. The reference range was not u sed to interpret this result as normal/abnormal . CO2 (test code = See_Comment [Automated message] The 1962-09) system which ge nerated this result tra nsmitted reference range : 21 - 30 MEQ/L. The refe rence range was not u sed to interpret this result as normal/abnormal . CALCIUM (test code = See_Comment [Autom ated message] The 59188-5) system which ge nerated this result tra nsmitted reference range : 8.5 - 10.5 MG/DL. The reference range was not used to interpr et this result as normal/abnormal . PROTEIN TOTAL (test See_Comment [Automa tima message] The code = 2885-2) system which generated this result tra nsmitted reference range : 6.1 - 8.1 G/DL. The r eference range was not u sed to interpret this result as normal/abnormal . ALBUMIN (test code = See_Comment [Autom ated message] The 96771-9) system which ge nerated this result tra nsmitted reference range : 3.4 - 4.8 G/DL. The r eference range was not u sed to interpret this result as normal/abnormal . GLOBULINS, SERUM, TOTAL See_Comment [Au tomated message] The (test code = 00795-2) system which generated this result tra nsmitted reference range : 1.9 - 3.7 G/DL. The r eference range was not u sed to interpret this result as normal/abnormal . A/G RATIO (test code = See_Comment [Aut omated message] The ) system which ge nerated this result tra nsmitted reference range : 1.0 - 2.6 RATIO. The reference range was not u sed to interpret this result as normal/abnormal . BILIRUBIN TOTAL (test See_Comment [Auto mated message] The code = 1974-03) system which generated this result tra nsmitted reference range : <=1.2 MG/DL. The refe rence range was not u sed to interpret this result as normal/abnormal . ALKALINE PHOSPHATASE 53 U/L 30-132 (test code = 6768-6) AST (SGOT) (test code = 18 U/L 7-56 8) ALT (SGPT) (test code = 10 U/L 3-47 TESTING PERFORMED 1743-03) [facility] [place] [address] [place] [address] CLIA NO. [id number] Unless Other lewis Indicated, All Testing Performed At: Clinical [facility]ol [facility], [address] [place] [address] Shale Processing Technician: Maryann Suresh [id number] [place] Accreditation [place]. [id number] [facility] WITH MAN DIFF & ABSOLUTE [id number] 18:39:41 Test Item Value Reference Range Interpretation Comments WHITE BLOOD CELL COUNT See_Comment [Aut omated message] (test code = 77387-6) The sy stem which generated this result transmitted ref erence range: 4.0 - 11 .0 K/UL. The reference r maryanne was not used to int erpret this result as normal/abnormal . RED BLOOD CELL COUNT See_Comment [Autom ated message] (test code = 69938-4) The sy stem which generated this result transmitted ref erence range: 4.10 - 5 .70 M/UL. The refer ence range was not u sed to interpret this result as normal/abnor mal. HEMOGLOBIN (test code = See_Comment [Au tomated message] 718-7) The system [facility] generated this result transmitted ref erence range: 13.0 - 1 7.0 G/DL. The refer ence range was not u sed to interpret this result as normal/abnor mal. HEMATOCRIT (test code = 42.0 % 37-49 55262-9) MEAN CORPUSCULAR VOLUME 87.0 fL 80-100 (test code = 60173-8) MEAN CORPUSCULAR 30.0 PG 27-34 HEMOGLOBIN (test code = 46120-6) MEAN CORPUSCULAR See_Comment [Automated message] HEMOGLOBIN CONC (test The sy stem which code = 28153-6) generated th is result transmitted ref erence range: 32.0 - 3 5.5 G/DL. The refer ence range was not u sed to interpret this result as normal/abnor mal. RED CELL DISTRIBUTION 13.4 % 11-15 WIDTH (test code = 14285-9) NEUTROPHILS % (test 57 % 40-74 SEGMENTED code = 55011-2) NEUTROPHILS, MANUAL DIFFERENTIAL. BANDS % (test code = 0 % 0-8 71533-3) LYMPHOCYTES % (test 25 % 19-48 code = 86921-9) MONOCYTES % (test code 13 % 4-13 = 64692-7) EOSINOPHILS % (test 3 % 0-7 code = 86462-4) BASOPHILS % (test code 2 % 0-2 = 74816-3) PLATELET COUNT (test See_Comment [Autom ated message] code = 87475-0) The system [facility] generated this result transmitted ref erence range: 130 - 40 0 K/UL. The reference r maryanne was not used to int erpret this result as normal/abnormal . NEUTROPHILS ABSOLUTE See_Comment [Autom ated message] COUNT (test code = The syste m which 64748-8) generated this result transmitted ref erence range: 1.50 - 7 .00 K/UL. The refer ence range was not u sed to interpret this result as normal/abnor mal. LYMPHOCYTES ABSOLUTE See_Comment [Autom ated message] COUNT (test code = The syste m which 57280-5) generated this result transmitted ref erence range: 1.00 - 4 .00 K/UL. The refer ence range was not u sed to interpret this result as normal/abnor mal. MONOCYTES CSF (test See_Comment [Automa tima message] code = 85074-6) The system w hich generated this result transmitted ref erence range: 0.10 - 1 .00 K/UL. The refer ence range was not u sed to interpret this result as normal/abnor mal. BASOPHILS ABSOLUTE See_Comment [Automat ed message] COUNT (test code = The syste m which 69267-9) generated this result transmitted ref erence range: 0.00 - 0 .20 K/UL. The refer ence range was not u sed to interpret this result as normal/abnor mal. COMMENTS (test code = (NOTE) RBC'S ARE 39567-2) NORMOCHROMIC/NO RMOCYTIC PLAT ELETS APPEAR ADEQUATE PLATELETS AP PEAR NORMAL CARIDAD TING PERFORMED AT [facility] [address] [place], [place] [address] CLIA NO. [id number] Unless Otherwis e Indicated, All Testing Performed At: [facility], [address] [place] [address] Shale Processing Technician: Kostas Cruz M.D. IA Number [id number] [place] [id number] [facility], [id number] 13:18:00[facility] protocol mri brainFINAL REPORT MR, BRAIN, WITH \\T\\ WITHOUT CONTRAST INDICATION: Brain tumor, primary TECHNIQUE: Multiplanar, multisequence MR imaging of the brain was obtained before and after uneventful administration of gadolinium contrast. COMPARISON: 01 December 2018 FINDINGS:There has been mar ked retraction of the resection cavity since the prior examination. There is minimal residual peripheral enhancement but without nodularity identified in the prior exam. There is dural thickening subjacent to the calvarial flap but improved since the prior examination. FLAIR hyperintensity in the right parietal lobe has decreased since the prior examination. There has been no recent infarct or hemorrhage. There is no midline shift or hydrocephalus. IMPRESSION: Marked retraction resection cavity with decreasing peripheral enhancement and no nodularity. The prior examination. Increasing FLAIR signal abnormality brain parenchyma. No new lesions. Signed: JR Schaffer Robert MDReport Verified Date/Time: 02/23/2019 13:18:08 Reading Location: [facility] C013V Neuro Reading Room -[id number] 09:57:00 Test Item Value Reference Range Interpretation Comments POC-CREATININE 1.1 mg/dL 0.6-1.3 [facility] (test [address] code = 1859) [facility] 7703 0 POC-EGFR 83 mL/min/1.73M2 (BEAKER) (test code = 1860) MR, BRAIN, [id number] 12:16:00In treatment position, please (NOT CyberKnife) In treatment position (NOT CyberKnife) Reason for Exam:->WHO grade III anaplastic oligo, needed for treatmentFINAL REPORT MR, BRAIN, WITH \\T\\ WITHOUT CONTRAST INDICATION: Brain tumor, primaryWHO grade III anaplastic oligo, needed for treatment Technique: MRI of the brain utilizing axialT1, T2, FLAIR, GRE, DWI, sagittal T1; and postgadolinium axial, sagittal, and coronal T1-weighted images. COMPARISON: November 06, 2018 FINDINGS: Prior pterional craniotomy for resection of tumor. Trace extra-axial collection remains measuring up to 2 mm, decreased in size from prior exam. Interval re solution of midline shift. There is increased enhancement surrounding the resection cavity, some of which appears nodular, best seen on sagittal images. T2/FLAIR hyperintense signal abnormality is significantly decreased in the interim and primarily confined to the resection bed and the medial temporal lobe. T2/FLAIR hyperintense signal abnormality of the frontal subcortical white matter and parietalsubcortical white matter has predominantly resolved, however, there is residual masslike FLAIR hyperintensity at the temporo-occipital junction (axial image 14), similar in appearance to prior given differences in slice selection and technique. No hydrocephalus. Orbits are within normal limits. No obstructive paranasal sinus disease. Additional findings: None. IMPRESSION: Increased nodular enhancement at the resection cavity margin, best seen on sagittal images. Degree of T2/FLAIR hyperintense signal abnormality surrounding the resection cavity is significantly decreased. Additionally, there is decreased mass effect with interval resolution of midline shift. Signed: Irma Funez MDReport Verified Date/Time: 12/01/2018 12:16:38 Reading Location: [facility] C013V Neuro Reading Room [id number] 09:39:00 Test Item Value Reference Range Interpretation Comments POC-CREATININE 1.1 mg/dL 0.6-1.3 TESTED AT [facility] (BEAKER) (test [address] code = 1859) [facility] 7703 0 POC-EGFR 83 mL/min/1.73M2 (BEAKER) (test code = 1860) TISSUE [id number] 13:40:00Surgical Pathology Report Case: [id number] Authorizing Provider: Chilango Real MD Collected: 11/05/2018 1336 Ordering Location: [facility] PERIOPERATIVE Received: 11/05/2018 1348 SERVICES Pathologist: Can Rojas MD Specimens: A) - Soft Tissue, Other, Right Temporal Mass B) - Soft Tissue, Other, right temporal mass Molecular studies confirm MGMT gene promoter methylation is DETECTED in 69.43% of cells. Please see attached report. 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 An amended report will be issued with the new tumor classification and grading.Addendum electronically signed by Can Rojas MD on 11/19/2018 at 11:24 AMA. 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 Immunoperoxidase stains for GFAP and S100 are strongly and diffusely positive in tumor. Immunoperoxidase stains for neurofilament and synaptophysin stain background neuropil. Occasional tumor cells are positive for p53 with nuclear staining. IDH1 immunoperoxidase stains are reviewed and nonspecific staining in areas of cell degeneration and necrosis is noted. The findings of the IDH immunoperoxidase stains, on secondary review, are equivocal. Given detection of 1p/19q co-deletion status, the diagnosis is changed as reported above. Dr. Degroot was notified of these findings on 11/19/18 at 11:27 am. After discussion with [employer], and in light of the presence of 1/p/19q co-deletion with IDH1/2 not detected by molecular assays, it is de termined that the FISH assay for assessing 1p/19q deletion status has detected an interstitial, and NOT WHOLE ARM chromosomal deletion. Therefore, this tumor is best classified as a glioblastoma, IDH wild type. These findings were discussed with Dr. Nargis Degroot on 11/28/18 at 1:28 pm. 04149 x 2; 02616; 27633; 68823 x 4Brain lesion A. Right temporal mass; B. Right tempora massA. Received fresh for intraoperative consultation labeled "soft tissue" is a 1 x 0.7 x 0.5 cm portion of campos-pink soft tissue. The specimen is trisected, and a portion of the specimen is touch prepped and submitted for frozen section diagnosis and submitted in FSA1, and the remainder is submitted in cassette A2 for permanent. TW/ew B. Received in formalin is a 6 x 4.5 x 1.5 cm aggregate of red to white and focally yellow fragments of cauterized brain tissue. The specimen is submitted entirely B1 to B17. TW/Janeen. BRAIN, RIGHT TEMPORAL MASS, EXCISION: - GLIOBLASTOMAThis was verbally reported by Dr. Rojas on November 05, 2018, at 2:06 p.m. Performed on A and BThe interpretation of this case included the use of immunohistochemistry or special stains.Control Slides Examined: In-house known positive controls were evaluatedalong with the test tissue. These control slides run alongside of the patients sample show appropriate staining. Internal positive and negative controls when available are evaluated Immunohistochemistry technical testing was performed at [facility], Pathology Laboratory where itwas developed and its performance characteristics were determined. It has not been cleared or approved by the U.S. Food and Drug Administration. The FDA has determined that such clearance or approval is not necessary. The test is used for clinical purposes. It should not be regarded as investigationalor for research. This laboratory is certified under the Clinical Laboratory Improvement Amendments of 1988 (CLIA-88) as qualified to perform high complexity clinical laboratory testing.MR, BRAIN, [id number] 17:06:00Reason for exam:->postop examFINAL REPORT MR, BRAIN, WITH \\T\\ WITHOUT CONTRAST INDICATION: postop exampostop exam TECHNIQUE: Multiplanar, multisequence MR imaging of the brain prior to and following intravenous administration of contrast. COMPARISON: MRI 11/04/2018 FINDINGS: Intracranial: Interval right temporal craniotomy for resection of the heterogenous the enhancing right temporal lobe mass. Expected fluid and blood products within the resection cavity as well as small foci of pneumocephalus. There are T1 hyperintense blood products at the resection margins. Possible trace residual enhancement at themedial margin (precontrast series 701 image 10 and postcontrast series 801 image 10, compared to theseries 1401 image 62 on the prior exam). A small rim of cytotoxic edema surrounding the resection. No restricted diffusion elsewhere to suggest acute infarct. Similar FLAIR hyperintensity within the right temporal lobe and right basal ganglia, with similar compression of the right lateral ventricle and mild leftward midline shift. No hydrocephalus. The right MCA flow void is displaced anteriorly as b efore, not compressed. Sinuses: Minimal mucosal thickening in the right maxillary sinus. Mastoids are clear. Orbits: Globes are intact. Calvarium \\T\\ scalp: Unremarkable. IMPRESSION:Interval right temporal craniotomy for resection of underlying heterogeneously enhancing tumor. No evidence of acute comp lication. Questionable trace residual enhancement at the medial resection margin; attention on follow-up is suggested. Signed: Jaclyn Jiménez Verified Date/Time: 11/06/2018 17:06:56 [facility] METABOLIC [id number] 04:22:00 Test Item Value Reference Range Interpretation Comments SODIUM (BEAKER) 141 meq/L 136-145 (test code = 381) POTASSIUM (BEAKER) 4.3 meq/L 3.5-5.1 (test code = 379) CHLORIDE (BEAKER) 108 meq/L 98-107 H (test code = 382) CO2 (BEAKER) (test 25 meq/L 22-29 code = 355) BLOOD UREA NITROGEN 18 mg/dL 7-21 (BEAKER) (test code = 354) CREATININE (BEAKER) 1.05 mg/dL 0.57-1.25 (test code = 358) GLUCOSE RANDOM 122 mg/dL 70-105 H (BEAKER) (test code = 652) CALCIUM (BEAKER) 9.2 mg/dL 8.4-10.2 (test code = 697) EGFR (BEAKER) (test 87 mL/min/1.73 ESTIMA TIMA GFR IS code = 1092) sq m NOT ACCURATE CREATININE CLEARANCE IN PREDICTING GLOMERULAR FILTRATION RATE . ESTIMATED GFR I S NOT APPLICABLE FOR DIALYSIS PATIEN TS. CBC W/PLT COUNT & AUTO [id number] 04:13:00 Test Item Value Reference Range Interpretation Comments WHITE BLOOD CELL COUNT (BEAKER) 19.9 K/ L 3.5-10.5 H (test code = 775) RED BLOOD CELL COUNT (BEAKER) 4.55 M/ L 4.63-6.08 L (test code = 761) HEMOGLOBIN (BEAKER) (test code = 13.7 GM/DL 13.7-17.5 410) HEMATOCRIT (BEAKER) (test code = 39.6 % 40.1-51.0 L 411) MEAN CORPUSCULAR VOLUME (BEAKER) 87.0 fL 79.0-92.2 (test code = 753) MEAN CORPUSCULAR HEMOGLOBIN 30.1 pg 25.7-32.2 (BEAKER) (test code = 751) MEAN CORPUSCULAR HEMOGLOBIN CONC 34.6 GM/DL 32.3-36.5 (BEAKER) (test code = 752) RED CELL DISTRIBUTION WIDTH 13.0 % 11.6-14.4 (BEAKER) (test code = 412) PLATELET COUNT (BEAKER) (test 225 K/CU MM 150-450 code = 756) MEAN PLATELET VOLUME (BEAKER) 9.3 fL 9.4-12.4 L (test code = 754) NUCLEATED RED BLOOD CELLS 0 /100 WBC 0-0 (BEAKER) (test code = 413) NEUTROPHILS RELATIVE PERCENT 88 % (BEAKER) (test code = 429) LYMPHOCYTES RELATIVE PERCENT 5 % (BEAKER) (test code = 430) MONOCYTES RELATIVE PERCENT 6 % (BEAKER) (test code = 431) EOSINOPHILS RELATIVE PERCENT 0 % (BEAKER) (test code = 432) BASOPHILS RELATIVE PERCENT 0 % (BEAKER) (test code = 437) NEUTROPHILS ABSOLUTE COUNT 17.54 K/ L 1.78-5.38 H (BEAKER) (test code = 670) LYMPHOCYTES ABSOLUTE COUNT 0.96 K/ L 1.32-3.57 L (BEAKER) (test code = 414) MONOCYTES ABSOLUTE COUNT (BEAKER) 1.24 K/ L 0.30-0.82 H (test code = 415) EOSINOPHILS ABSOLUTE COUNT 0.00 K/ L 0.04-0.54 L (BEAKER) (test code = 416) BASOPHILS ABSOLUTE COUNT (BEAKER) 0.02 K/ L 0.01-0.08 (test code = 417) IMMATURE GRANULOCYTES-RELATIVE 1 % 0-1 PERCENT (BEAKER) (test code = 2801) CBC W/PLT COUNT & AUTO [id number] 06:28:00 Test Item Value Reference Range Interpretation Comments WHITE BLOOD CELL COUNT (BEAKER) 15.6 K/ L 3.5-10.5 H (test code = 775) RED BLOOD CELL COUNT (BEAKER) 4.55 M/ L 4.63-6.08 L (test code = 761) HEMOGLOBIN (BEAKER) (test code = 13.7 GM/DL 13.7-17.5 410) HEMATOCRIT (BEAKER) (test code = 39.5 % 40.1-51.0 L 411) MEAN CORPUSCULAR VOLUME (BEAKER) 86.8 fL 79.0-92.2 (test code = 753) MEAN CORPUSCULAR HEMOGLOBIN 30.1 pg 25.7-32.2 (BEAKER) (test code = 751) MEAN CORPUSCULAR HEMOGLOBIN CONC 34.7 GM/DL 32.3-36.5 (BEAKER) (test code = 752) RED CELL DISTRIBUTION WIDTH 12.9 % 11.6-14.4 (BEAKER) (test code = 412) PLATELET COUNT (BEAKER) (test 233 K/CU MM 150-450 code = 756) MEAN PLATELET VOLUME (BEAKER) 9.3 fL 9.4-12.4 L (test code = 754) NUCLEATED RED BLOOD CELLS 0 /100 WBC 0-0 (BEAKER) (test code = 413) NEUTROPHILS RELATIVE PERCENT 90 % (BEAKER) (test code = 429) LYMPHOCYTES RELATIVE PERCENT 7 % (BEAKER) (test code = 430) MONOCYTES RELATIVE PERCENT 3 % (BEAKER) (test code = 431) EOSINOPHILS RELATIVE PERCENT 0 % (BEAKER) (test code = 432) BASOPHILS RELATIVE PERCENT 0 % (BEAKER) (test code = 437) NEUTROPHILS ABSOLUTE COUNT 13.94 K/ L 1.78-5.38 H (BEAKER) (test code = 670) LYMPHOCYTES ABSOLUTE COUNT 1.05 K/ L 1.32-3.57 L (BEAKER) (test code = 414) MONOCYTES ABSOLUTE COUNT (BEAKER) 0.52 K/ L 0.30-0.82 (test code = 415) EOSINOPHILS ABSOLUTE COUNT 0.00 K/ L 0.04-0.54 L (BEAKER) (test code = 416) BASOPHILS ABSOLUTE COUNT (BEAKER) 0.01 K/ L 0.01-0.08 (test code = 417) IMMATURE GRANULOCYTES-RELATIVE 0 % 0-1 PERCENT (BEAKER) (test code = 2801) BASIC METABOLIC [id number] 06:13:00 Test Item Value Reference Range Interpretation Comments SODIUM (BEAKER) 138 meq/L 136-145 (test code = 381) POTASSIUM (BEAKER) 4.4 meq/L 3.5-5.1 (test code = 379) CHLORIDE (BEAKER) 105 meq/L 98-107 (test code = 382) CO2 (BEAKER) (test 26 meq/L 22-29 code = 355) BLOOD UREA NITROGEN 19 mg/dL 7-21 (BEAKER) (test code = 354) CREATININE (BEAKER) 0.99 mg/dL 0.57-1.25 (test code = 358) GLUCOSE RANDOM 122 mg/dL 70-105 H (BEAKER) (test code = 652) CALCIUM (BEAKER) 9.5 mg/dL 8.4-10.2 (test code = 697) EGFR (MARY) (test 93 mL/min/1.73 ESTIMA TIMA GFR IS code = 1092) sq m NOT ACCURATE CREATININE CLEARANCE IN PREDICTING GLOMERULAR FILTRATION RATE . ESTIMATED GFR I S NOT APPLICABLE FOR DIALYSIS PATIEN TS. PROTHROMBIN [id number] 05:40:00 Test Item Value Reference Range Interpretation Comments PROTIME (MARY) (test code = 13.8 seconds 11.9-14.2 759) INR (MARY) (test code = 370) 1.1 <=5.9 Effective 07/16/2018: PT Reference Range ChangeNew: 11.9-14.2 Previous: 11.7- 14.7RECOMMENDED COUMADIN/WARFARIN INR THERAPY RANGESSTANDARD DOSE: 2.0-3.0 Includes: PROPHYLAXIS for venous thrombosis, systemic embolization; TREATMENT for venous thrombosis and/or pulmonary embolus.HIGH RISK: Target INR is2.5-3.5 for patients wiht mechanical heart valves.RAD, CHEST, 1 VIEW, NON [id number] 23:58:00Reason for exam:->preopShould this be performed at the bedside?->YesFINAL REPORT Chest, 1 view. History: Preoperative examination. Comparison: None available. IMPRESSION: The cardiomediastinal silhouette and pulmonary vasculature are within normal limits for a portable exam. Discoid atelectasis of the left base. Otherwise lungs are clear without evidence of consolidation or effusion. The soft tissues and osseous structures are intact. Signed: Juan[facility]char[facility] Verified Date/Time: 11/04/2018 23:58:21 CT, ABDOMEN, WITH [id number] 21:41:[address] scan of the chest, abdomen and pelvis. MEDICAL HISTORY: Brainmass, rule out metastatic disease. COMPARISON STUDY: MRI of the brain dated November 04, 2018. TECHNIQUE: Contiguous helical slices were acquired through the chest, abdomen and pelvis post administration of oral and intravenous contrast. This exam was performed according to our department dose optimization program which includes automated exposure control, adjustment of the mA and/or kV according tothe patient's size and/or use of iterative reconstruction technique. FINDINGS: The mediastinum demonstrates no suspicious masses or adenopathy. There are no pleural effusions. The tracheobronchial tree is clear with no endobronchial lesions. The pulmonary parenchyma demonstrates a 3 mm nodule in the left upper lobe on image 10. Mild to moderate emphysematous changes are seen. Atelectatic changes are noted. A tiny low-attenuation lesion is seen in the lower pole of the right kidney, too small to characterize but statistically most likely a cyst. The liver, spleen, pancreas, adrenal glands and kidneys are otherwise unremarkable. The gallbladder and biliary tree are within normal limits. There are nodilated loops of bowel seen suggest obstruction. No evidence of appendicitis is seen. There is no free fluid or free air. The prostate gland is enlarged measuring 6.2 x 5.7 cm in maximal transverse diameter. The aorta is normal in caliber. Atherosclerosis is seen. There is no suspicious adenopathy. Bone windows demonstrate degenerative changes. IMPRESSION:1. Mild to moderate emphysema.2. 3 mm nodule in the left upper lobe on image 10. This could be followed up in 3-6 months time given the brain mass. 3. Enlarged prostate gland.4. Tiny low-attenuation right renal lesion, most likely a cyst.5. No definite sites of metastatic disease or primary neoplastic disease. Signed: Janis Graham MDReport Verified Date/Time: 11/04/2018 21:41:20 Reading Location: [address] Consult Reading Room CT, CHEST, WITH CONTRAST 2018-11-04 21:41:00FINAL REPORT CT scan of the chest, abdomen and pelvis. MEDICAL HISTORY: Brainmass, rule out metastatic disease. COMPARISON STUDY: MRI of the brain dated November 04, 2018. TECHNIQUE: Contiguous helical slices were acquired through the chest, abdomen and pelvis post administration of oral and intravenous contrast. This exam was performed according to our department dose optimization program which includes automated exposure control, adjustment of the mA and/or kV according tothe patient's size and/or use of iterative reconstruction technique. FINDINGS: The mediastinum demonstrates no suspicious masses or adenopathy. There are no pleural effusions. The tracheobronchial treeis clear with no endobronchial lesions. The pulmonary parenchyma demonstrates a 3 mm nodule in the left upper lobe on image 10. Mild to moderate emphysematous changes are seen. Atelectatic changes are noted. A tiny low-attenuation lesion is seen in the lower pole of the right kidney, too small to characterize but statistically most likely a cyst. The liver, spleen, pancreas, adrenal glands and kidneys are otherwise unremarkable. The gallbladder and biliary tree are within normal limits. There are nodilated loops of bowel seen suggest obstruction. No evidence of appendicitis is seen. There is no free fluid or free air. The prostate gland is enlarged measuring 6.2 x 5.7 cm in maximal transverse diameter. The aorta is normal in caliber. Atherosclerosis is seen. There is no suspicious adenopathy. Bone windows demonstrate degenerative changes. IMPRESSION:1. Mild to moderate emphysema.2. 3 mm nodule in the left upper lobe on image 10. This could be followed up in 3-6 months time given the brain mass.3. Enlarged prostate gland.4. Tiny low-attenuation right renal lesion, most likely a cyst.5. No definite sites of metastatic disease or primary neoplastic disease. Signed: Janis Graham MDReport Verified Date/Time: 11/04/2018 21:41:20 Reading Location: [address] Consult Reading Room CT, PELVIS, W [id number] 21:41:00FINAL REPORT CT scan of the chest, abdomen and pelvis. MEDICAL HISTORY: Brainmass, rule out metastatic disease. COMPARISON STUDY: MRI of the brain dated November 04, 2018. TECHNIQUE: Contiguous helical slices were acquired through the chest, abdomen and pelvis post administration of oral and intravenous contrast. This exam was performed according to our department dose optimization program which includes automated exposure control, adjustment of the mA and/or kV according tothe patient's size and/or use of iterative reconstruction technique. FINDINGS: The mediastinum demonstrates no suspicious masses or adenopathy. There are no pleural effusions. The tracheobronchial treeis clear with no endobronchial lesions. The pulmonary parenchyma demonstrates a 3 mm nodule in the left upper lobe on image 10. Mild to moderate emphysematous changes are seen. Atelectatic changes are noted. A tiny low-attenuation lesion is seen in the lower pole of the right kidney, too small to characterize but statistically most likely a cyst. The liver, spleen, pancreas, adrenal glands and kidneys are otherwise unremarkable. The gallbladder and biliary tree are within normal limits. There are nodilated loops of bowel seen suggest obstruction. No evidence of appendicitis is seen. There is no free fluid or free air. The prostate gland is enlarged measuring 6.2 x 5.7 cm in maximal transverse diameter. The aorta is normal in caliber. Atherosclerosis is seen. There is no suspicious adenopathy. Bone windows demonstrate degenerative changes. IMPRESSION:1. Mild to moderate emphysema.2. 3 mm nodule in the left upper lobe on image 10. This could be followed up in 3-6 months time given the brain mass.3. Enlarged prostate gland.4. Tiny low-attenuation right renal lesion, most likely a cyst.5. No definite sites of metastatic disease or primary neoplastic disease. Signed: Janis Graham [facility] Verified Date/Time: 11/04/2018 21:41:20 Reading Location: [facility] [id number] [facility] 19:24:00 Test Item Value Reference Range Interpretation Comments PARTIAL THROMBOPLASTIN TIME 30.6 seconds 22.5-36.0 (BEAKER) (test code = 760) PROTHROMBIN [id number] 19:23:00 Test Item Value Reference Range Interpretation Comments PROTIME (BEAKER) (test code = 13.2 seconds 11.9-14.2 759) INR (BEAKER) (test code = 370) 1.0 <=5.9 Effective 07/16/2018: PT Reference Range ChangeNew: 11.9-14.2 Previous: 11.7- 14.7RECOMMENDED COUMADIN/WARFARIN INR THERAPY RANGESSTANDARD DOSE: 2.0-3.0 Includes: PROPHYLAXIS for venous thrombosis, systemic embolization; TREATMENT for venous thrombosis and/or pulmonary embolus.HIGH RISK: Target INR is2.5-3.5 for patients wiht mechanical heart valves.EEG AWAKE/ASLEEP AND [id number] 17:33:00Reason for exam:->staring spells, brain mass, r/o seizure activityShould this be performed [facility]?->YesELECTROENCEPHALOGRAM PATIENT NAME: JOHANNA NICHOLS EEG NUMBER:[id number] EXAMINATION DATE: 2018 START TIME: 1:43 PM END TI ME: 2:05 PM CPT: 56548 ICD10: R56.9 TECHNICAL SUMMARY The occipital dominant rhythm is 9 Hz. There is moderate voltage 6 to 7 Hz activity in posterior regions. Low voltage 18 to 22 Hz activity is present in anterior regions. There is some intermittent moderate voltage 4 to 5 Hz activity in the right frontal temporal region. There is some myogenic and movement potential present during the recording. Sleep: No new findings. Photic stimulation: No abnormal activity elicited. IMPRESSION:This patient's electroencephalogram is abnormal in the presence of a focus of slow (theta) activity in the right frontal temporal raising the possibility of a focal lesion in that region. The background activity is within the range of normal variation. No epileptiform activity is present. No electrographic seizures were recorded. Danay Hardin MD MR, BRAIN, [id number] 12:14:00STEALTH Protocol (1mm or thinner cuts, include tip of nose, 0 gantry angle)Need with anesthesia supportFINAL REPORT MR, BRAIN, WITH \\T\\ WITHOUT CONTRAST INDICATION: Brain mass or lesion, follow-upRight temporal mass Technique: MRI of the brain utilizing axial T1, T2, FLAIR, GRE, DWI, sagittal T1; and postgadolinium axial, sagittal, and coronal T1-weighted images. COMPARISON: Prior CT of the FINDINGS: Peripherally enhancing 4.6 x 6.5 x 5.7 cm lesion of the right temporal lobe with demonstrates peripheral hemosiderin deposition corresponding to linear intrinsic T1 shortening (likely mineralization) and heterogenous T2 and T1 signal characteristics. There is vasogenic edema involving the temporal and parietal parenchyma extending to the periatrial white matter, basal ganglia andcentrum semiovale on the right. There is extent to the anterior commissure on the right, although, the lesion does not frankly cross midline. There is effacement of the right lateral ventricle with 1.1cm leftward midline shift. Mild asymmetric dilatation of the left lateral ventricle without felton ventricular entrapment. No hydrocephalus. Remainder the brain parenchyma is unremarkable. No restricted diffusion to suggest recent infarct. Orbits are within normal limits. No obstructive paranasal sinusdisease. Additional findings: None. 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, 1.1 cm leftward midline shift at the level of the third ve ntricle and suspected early entrapment of the left lateral ventricle as per above Signed: Irma Funez MDReport Verified Date/Time: 11/04/2018 12:14:58 Reading Location: [address] Neuro Reading Room [facility] METABOLIC PANEL 2018-11-04 07:43:00 Test Item Value Reference Range Interpretation Comments SODIUM (BEAKER) 139 meq/L 136-145 (test code = 381) POTASSIUM (BEAKER) 4.1 meq/L 3.5-5.1 (test code = 379) CHLORIDE (BEAKER) 107 meq/L 98-107 (test code = 382) CO2 (BEAKER) (test 24 meq/L 22-29 code = 355) BLOOD UREA NITROGEN 17 mg/dL 7-21 (BEAKER) (test code = 354) CREATININE (BEAKER) 0.94 mg/dL 0.57-1.25 (test code = 358) GLUCOSE RANDOM 138 mg/dL 70-105 H (BEAKER) (test code = 652) CALCIUM (BEAKER) 9.9 mg/dL 8.4-10.2 (test code = 697) EGFR (BEAKER) (test 99 mL/min/1.73 ESTIMA TIMA GFR IS code = 1092) sq m NOT ACCURATE CREATININE CLEARANCE IN PREDICTING GLOMERULAR FILTRATION RATE . ESTIMATED GFR I S NOT APPLICABLE FOR DIALYSIS PATIEN TS. CBC W/PLT COUNT & AUTO [id number] 06:55:00 Test Item Value Reference Range Interpretation Comments WHITE BLOOD CELL COUNT (BEAKER) 5.0 K/ L 3.5-10.5 (test code = 775) RED BLOOD CELL COUNT (BEAKER) 4.87 M/ L 4.63-6.08 (test code = 761) HEMOGLOBIN (BEAKER) (test code = 14.7 GM/DL 13.7-17.5 410) HEMATOCRIT (BEAKER) (test code = 41.7 % 40.1-51.0 411) MEAN CORPUSCULAR VOLUME (BEAKER) 85.6 fL 79.0-92.2 (test code = 753) MEAN CORPUSCULAR HEMOGLOBIN 30.2 pg 25.7-32.2 (BEAKER) (test code = 751) MEAN CORPUSCULAR HEMOGLOBIN CONC 35.3 GM/DL 32.3-36.5 (BEAKER) (test code = 752) RED CELL DISTRIBUTION WIDTH 12.6 % 11.6-14.4 (BEAKER) (test code = 412) PLATELET COUNT (BEAKER) (test 249 K/CU MM 150-450 code = 756) MEAN PLATELET VOLUME (BEAKER) 9.2 fL 9.4-12.4 L (test code = 754) NUCLEATED RED BLOOD CELLS 0 /100 WBC 0-0 (BEAKER) (test code = 413) NEUTROPHILS RELATIVE PERCENT 77 % (BEAKER) (test code = 429) LYMPHOCYTES RELATIVE PERCENT 19 % (BEAKER) (test code = 430) MONOCYTES RELATIVE PERCENT 3 % (BEAKER) (test code = 431) EOSINOPHILS RELATIVE PERCENT 0 % (BEAKER) (test code = 432) BASOPHILS RELATIVE PERCENT 0 % (BEAKER) (test code = 437) NEUTROPHILS ABSOLUTE COUNT 3.88 K/ L 1.78-5.38 (BEAKER) (test code = 670) LYMPHOCYTES ABSOLUTE COUNT 0.97 K/ L 1.32-3.57 L (BEAKER) (test code = 414) MONOCYTES ABSOLUTE COUNT (BEAKER) 0.15 K/ L 0.30-0.82 L (test code = 415) EOSINOPHILS ABSOLUTE COUNT 0.00 K/ L 0.04-0.54 L (BEAKER) (test code = 416) BASOPHILS ABSOLUTE COUNT (BEAKER) 0.00 K/ L 0.01-0.08 L (test code = 417) IMMATURE GRANULOCYTES-RELATIVE 0 % 0-1 PERCENT (BEAKER) (test code = 2801) BASIC METABOLIC [id number] 20:39:00 Test Item Value Reference Range Interpretation Comments SODIUM (BEAKER) 136 meq/L 136-145 (test code = 381) POTASSIUM (BEAKER) 4.0 meq/L 3.5-5.1 (test code = 379) CHLORIDE (BEAKER) 104 meq/L 98-107 (test code = 382) CO2 (BEAKER) (test 21 meq/L 22-29 L code = 355) BLOOD UREA NITROGEN 14 mg/dL 7-21 (BEAKER) (test code = 354) CREATININE (BEAKER) 1.04 mg/dL 0.57-1.25 (test code = 358) GLUCOSE RANDOM 142 mg/dL 70-105 H (BEAKER) (test code = 652) CALCIUM (BEAKER) 9.9 mg/dL 8.4-10.2 (test code = 697) EGFR (BEAKER) (test 88 mL/min/1.73 ESTIMA TIMA GFR IS code = 1092) sq m NOT ACCURATE CREATININE CLEARANCE IN PREDICTING GLOMERULAR FILTRATION RATE . ESTIMATED GFR I S NOT APPLICABLE FOR DIALYSIS PATIEN TS.
--- NOTE | 2021-05-05 10:38 | RAD REPORT ---
EXAM DESCRIPTION: CT - Head Brain Wo Cont - 05/05/2021 10:03 am CLINICAL HISTORY: CONFUSED COMPARISON: Head Brain Wo Cont dated 11/03/2018; Brain W/Wo Cont dated 11/03/2018 TECHNIQUE: Axial 5 mm thick images of the head were obtained without IV contrast. All CT scans are performed using dose optimization technique as appropriate and may include automated exposure control or mA/KV adjustment according to patient size. FINDINGS: Since prior imaging the patient has undergone resection of a large right temporal lobe mas s. Craniotomy and craniectomy defects are present along the lateral right skull. There is a large are a of gliosis or encephalomalacia in the right temporal lobe from mass removal. Decreased attenuation is present in the cerebral white matter bilaterally, more prominent to the right. Ventricles have enl arged in proportion to the amount of volume loss. There is extensive diminished attenuation in the co rtical and subcortical parenchyma of the posterior right parietal lobe and portions of the occipital lobe. Diminished attenuation is present in the basal ganglia and thalamus. These right cerebral changes may all be related to the postsurgical change and FX of the large malign ant mass. No post surgical comparison is available. Acute nonhemorrhagic ischemic insults can be mask ed by this extent of postsurgical change. No suspicious extra-axial fluid collection. Mastoid air cells and visualized portions of the paranasal sinuses are clear. No acute bony findings. IMPRESSION: Extensive postsurgical changes are present centered in the right temporal lobe from prio r malignant mass removal. The extensive volume loss changes and attenuation abnormalities in the right cerebral hemisphere are all within range of what would be expected for this size mass and postsurgical change. Nonhemorrhagic ischemic changes could be masked within this postsurgical change. No intracranial hemorrhage or cerebral edema.
[2021-05-05 10:48] LABS: Absolute Lymphocytes (CBC) 0.8 K/uL (0.7-4.9); Hematocrit 41.1 % (39.6-49.0); Lymphocytes % 10.1 % (15.3-44.8); MPV 6.8 fL (7.6-11.3); RBC Red Blood Cell Count 4.22 M/uL (4.33-5.43)
[2021-05-05] MEDS ORDERED: NA CHLORIDE 0.9% 1,000 ML ONE (10:52)
[2021-05-05 10:55] LABS: ALT/SGPT 63 U/L (12-78); AST/SGOT 28 U/L (15-37); Alkaline Phosphatase 59 U/L (45-117); BUN Blood Urea Nitrogen 17 mg/dL (7-18); Bicarbonate 30 mmol/L (21-32); Bilirubin Total 1.1 mg/dL (0.2-1.0); Glucose Level 82 mg/dL (74-106); Lipase 124 U/L (73-393); Potassium 4.1 mmol/L (3.5-5.1); Protein, Total 5.9 g/dL (6.4-8.2); Sodium Level 140 mmol/L (136-145)
[2021-05-05 11:08] LABS: Urine Blood 1+ (Negative); Urine Glucose Negative (Negative); Urine Protein 2+ (Negative); Urine pH 7.5 (5.0-7.0)
[2021-05-05 11:22] LABS: Urine Bacteria NONE SEEN /HPF (NONE SEEN); Urine RBC <5 /HPF (NONE SEEN)
[2021-05-05] MEDS ORDERED: HYDRALAZINE HCL 20 MG/ML VIAL ONE (12:17)
--- NOTE | 2021-05-05 12:21 | RAD REPORT ---
EXAM DESCRIPTION: RAD - Chest Single View - 05/05/2021 11:19 am CLINICAL HISTORY: CONGESTION, altered mental status, history of brain malignancy COMPARISON: Portable October 2018 TECHNIQUE: AP portable chest image was obtained 05/05/2021 11:19 am . FINDINGS: Lung volumes are low. Portable technique and supine positioning accentuate heart, vasculat ure and lung markings. No focal lung parenchymal process suspected. No failure or volume overload. Heart size is prominent, accentuated by supine positioning. True change in heart size from 2019 is do ubtful. Trachea is midline. No measurable pleural effusion and no pneumothorax. No acute bony abnorma lity seen. No acute aortic findings suspected. IMPRESSION: Limited portable study without acute cardiopulmonary finding.
[2021-05-05 12:28] LABS: Anisocytosis SLIGHT; Blood Morphology Comment NOTED (NOT SEEN); Platelet Estimate DECR; White Blood Cell Scan OK (OK)
--- NOTE | 2021-05-05 13:13 | EDPHYS ---
Physician Documentation [facility] Name: Sascha Wing Age: 61 yrs Sex: Male : 1960 Arrival Date: 05/05/2021 Time: 09:28 Bed 17 Private MD: ED Physician Cheri Riojas HPI: 05/05 13:09 This 61 yrs old Black Male presents to ER via EMS with complaints of Elevated blood ma2 pressure, generalized weakness. 13:09 61-year-old male, with brain cancer undergoes chemotherapy weekly IV, presents with ma2 worsening of his baseline weakness, where he is unable to walk over the last 24 hours, usually is able to stand up and walk to the bathroom however has been sitting in chair all day yesterday. Patient also has decreased verbal response where he usually say few words a day. Of note patient also has urinary incontinence today. Of note patient also have high blood pressure today he has hypertension and he took his home antihypertensives this morning at 7 AM. And has been taking it as prescribed over the last few days.. Historical: - Allergies: 09:35 No Known Allergies; cagle - Home Meds: 09:35 amlodipine oral [Active]; lisinopril Oral [Active]; cagle - PMHx: 09:35 Hypertension; cagle - Immunization history:: Adult Immunizations up to date. - Social history:: Smoking status: Patient denies any tobacco usage or history of. Patient/guardian denies using alcohol, street drugs, The patient lives with family. - Family history:: not pertinent. ROS: 13:09 Constitutional: Negative for fever, chills, and weight loss. ma2 13:09 All other systems are negative. Exam: 13:09 Constitutional: Patient is awake alert, however he is nonverbal, he makes eye contact. ma2 Does not look in distress Head/Face: Normocephalic, atraumatic. Eyes: Pupils equal round and reactive to light, extra-ocular motions intact. Lids and lashes normal. Conjunctiva and sclera are non-icteric and not injected. Cornea within normal limits. Periorbital areas with no swelling, redness, or edema. ENT: Nares patent. No nasal discharge, no septal abnormalities noted. Tympanic membranes are normal and external auditory canals are clear. Oropharynx with no redness, swelling, or masses, exudates, or evidence of obstruction, uvula midline. Mucous membranes moist. Neck: Trachea midline, no thyromegaly or masses palpated, and no cervical lymphadenopathy. Supple, full range of motion without nuchal rigidity, or vertebral point tenderness. No Meningismus. Chest/axilla: Normal chest wall appearance and motion. Nontender with no deformity. No lesions are appreciated. Cardiovascular: Regular rate and rhythm with a normal S1 and S2. No gallops, murmurs, or rubs. Normal PMI, no JVD. No pulse deficits. Respiratory: Lungs have equal breath sounds bilaterally, clear to auscultation and percussion. No rales, rhonchi or wheezes noted. No increased work of breathing, no retractions or nasal flaring. Abdomen/GI: Soft, non-tender, with normal bowel sounds. No distension or tympany. No guarding or rebound. No evidence of tenderness throughout. Skin: Warm, dry with normal turgor. Normal color with no rashes, no lesions, and no evidence of cellulitis. MS/ Extremity: Pulses equal, no cyanosis. Neurovascular intact. Full, normal range of motion. Neuro: Patient is awake alert however he does not follow commands or talk. Vital Signs: 09:32 BP 169 / 122; Pulse 82; Resp 18; Temp 98.1(O); Pulse Ox 100% ; Weight 79.38 kg; Height cagle 6 ft. 2 in. (187.96 cm); 10:53 BP 162 / 127; Pulse 66; Resp 17; Pulse Ox 98% on R/A; cagle 11:45 BP 160 / 125; Pulse 68; Resp 16; Pulse Ox 97% on R/A; cagle 12:53 BP 155 / 85; Pulse 67; Resp 18; Pulse Ox 98% on R/A; cagle 13:11 BP 166 / 117; Pulse 94; Resp 18; Pulse Ox 99% on R/A; cagle 13:42 BP 140 / 106; Pulse 81; Resp 18; Pulse Ox 99% on R/A; cagle 14:18 BP 133 / 76; Pulse 88; Resp 16; Pulse Ox 99% ; cagle 17:11 BP 143 / 95; Pulse 58; Resp 16; Pulse Ox 98% on R/A; cagle 09:32 Body Mass Index 22.47 (79.38 kg, 187.96 cm) MDM: 09:47 Patient medically screened. ma2 13:09 Differential Diagnosis: electrolyte abnormality, alcohol intoxication, hypoglycemia, ma2 intracranial bleed, overdose, pneumonia, sepsis, TIA, UTI, volume depletion. Data reviewed: vital signs, nurses notes. Counseling: I had a detailed discussion with the patient and/or guardian regarding: the historical points, exam findings, and any diagnostic results supporting the discharge/admit diagnosis, the presence of at least one elevated blood pressure reading (>120/80) during this emergency department visit, the need for further work-up and treatment in the hospital. ED course: Discussed with Dr. De La Rosa. 05/05 09:48 Order name: CBC with Diff; Complete Time: 12:55 [facility] 05/05 09:48 Order name: CMP; Complete Time: 11:27 [facility] 05/05 09:48 Order name: Lipase; Complete Time: 11:27 [facility] 05/05 09:48 Order name: Urine Microscopic Only; Complete Time: 11:27 [facility] 05/05 11:08 Order name: Urine Dipstick-Ancillary; Complete Time: 11:27 [facility] 05/05 12:29 Order name: CBC Smear Scan; Complete Time: 12:55 [facility] 05/05 09:48 Order name: CT Head Brain wo Cont; Complete Time: 10:52 [facility] 05/05 10:55 Order name: Chest Single View XRAY; Complete Time: 12:25 [facility] 05/05 14:24 Order name: COVID-19 SARS RT PCR (Document "Date of Onset" if Symptomatic) aa5 05/05 14:25 Order name: SARS-COV-2 RT PCR [facility] 05/05 09:48 Order name: IV Saline Lock; Complete Time: 10:38 [facility] 05/05 09:48 Order name: Labs collected and sent; Complete Time: 10:38 [facility] 05/05 09:48 Order name: Urine Dipstick-Ancillary (obtain specimen); Complete Time: 11:18 [facility] 05/05 14:26 Order name: Diet Regular; Complete Time: 14:27 05/05 14:38 Order name: Physical Therapy Consult [facility] 05/05 14:41 Order name: Brain W/Wo Cont EDMI Administered Medications: 10:53 Drug: NS 0.9% 1000 ml Route: IV; Rate: 1 bolus; Site: right antecubital; cagle 12:52 Drug: hydrALAZINE 20 mg Route: IVP; Site: right antecubital; cagle 13:40 Follow up: Response: No adverse reaction cagle Disposition Summary: 05/05/21 13:12 Hospitalization Ordered Hospitalization Status: Observation ma2 Provider: Ashleigh Marlow Condition: Stable ma2 Problem: new ma2 Symptoms: are unchanged ma2 Bed/Room Type: Standard ma2 Location: Telemetry/MedSurg (observation)(05/05/21 18:31) eb Room Assignment: 204(05/05/21 18:31) eb Diagnosis - Hypertensive encephalopathy ma2 - Muscle weakness (generalized) ma2 Forms: - Medication Reconciliation Form ma2 - SBAR form ma2 Signatures: Dispatcher [employer] EDMS Cheri Riojas MD MD ma2 Saadia De Jesus Heather, RN RN cagle Corrections: (The following items were deleted from the chart) 14:32 13:12 Telemetry/MedSurg (observation) ma2 eb 14:32 13:12 ma2 eb 14:41 14:30 Brain With Cont ordered. EDMS EDMS 18:31 14:32 [facility] ER HOLD eb eb 18:31 14:32 ERHOLD- eb eb
--- NOTE | 2021-05-05 13:13 | ER ---
Nurse's Notes [facility] Name: Sascha Wing Age: 61 yrs Sex: Male : 1960 Arrival Date: 05/05/2021 Time: 09:28 Bed 17 Private MD: Diagnosis: Hypertensive encephalopathy;Muscle weakness (generalized) Presentation: 05/05 09:32 Chief complaint: EMS states: alter mental status-hx of brain cx last chemo april 25. Coronavirus screen: Vaccine status: Patient reports receiving the 2nd dose of the covid vaccine. Ebola Screen: Patient denies travel to an Ebola-affected area in the 21 days before illness onset. Initial Sepsis Screen: Does the patient meet any 2 criteria? No. Patient's initial sepsis screen is negative. Does the patient have a suspected source of infection? No. Patient's initial sepsis screen is negative. Risk Assessment: Do you want to hurt yourself or someone else? Patient reports no desire to harm self or others. Onset of symptoms was May 05, 2021. 09:32 Method Of Arrival: EMS: [facility] 09:32 Acuity: LEIGH 3 cagle Triage Assessment: 09:35 General: Appears in no apparent distress. Behavior is calm, quiet. Pain: Denies pain. cagle Neuro: Level of Consciousness is awake, obeys commands, Oriented to person. Historical: - Allergies: 09:35 No Known Allergies; cagle - Home Meds: 09:35 amlodipine oral [Active]; lisinopril Oral [Active]; cagle - PMHx: 09:35 Hypertension; cagle - Immunization history:: Adult Immunizations up to date. - Social history:: Smoking status: Patient denies any tobacco usage or history of. Patient/guardian denies using alcohol, street drugs, The patient lives with family. - Family history:: not pertinent. Vital Signs: 09:32 BP 169 / 122; Pulse 82; Resp 18; Temp 98.1(O); Pulse Ox 100% ; Weight 79.38 kg; Height cagle 6 ft. 2 in. (187.96 cm); 10:53 BP 162 / 127; Pulse 66; Resp 17; Pulse Ox 98% on R/A; cagle 11:45 BP 160 / 125; Pulse 68; Resp 16; Pulse Ox 97% on R/A; cagle 12:53 BP 155 / 85; Pulse 67; Resp 18; Pulse Ox 98% on R/A; cagle 13:11 BP 166 / 117; Pulse 94; Resp 18; Pulse Ox 99% on R/A; cagle 13:42 BP 140 / 106; Pulse 81; Resp 18; Pulse Ox 99% on R/A; cagle 14:18 BP 133 / 76; Pulse 88; Resp 16; Pulse Ox 99% ; cagle 17:11 BP 143 / 95; Pulse 58; Resp 16; Pulse Ox 98% on R/A; cagle 09:32 Body Mass Index 22.47 (79.38 kg, 187.96 cm) cagle ED Course: 09:28 Patient arrived in ED. cagle 09:29 Cheri Riojas MD is Attending Physician. ma2 09:35 Triage completed. cagle 09:35 Arm band placed on. cagle 10:03 CT Head Brain wo Cont In Process Unspecified. EDMS 10:30 Missed attempt(s): 20 gauge in left antecubital area. Bleeding controlled, band aid dh3 applied, catheter tip intact. 10:34 Initial lab(s) drawn, by pr, sent to lab. Inserted saline lock: 22 gauge in right dh3 antecubital area, using aseptic technique. Blood collected. 11:19 Chest Single View XRAY In Process Unspecified. EDMS 13:12 Ashleigh Marlow MD is Hospitalizing Provider. ma2 14:35 SARS-COV-2 RT PCR Sent. cagle 14:35 COVID-19 SARS RT PCR (Document "Date of Onset" if Symptomatic) Sent. cagle Administered Medications: 10:53 Drug: NS 0.9% 1000 ml Route: IV; Rate: 1 bolus; Site: right antecubital; cagle 12:52 Drug: hydrALAZINE 20 mg Route: IVP; Site: right antecubital; cagle 13:40 Follow up: Response: No adverse reaction cagle Outcome: 13:12 Decision to Hospitalize by Provider. ma2 19:50 Admitted to Med/surg Report called to chely ortega sf1 20:46 Patient left the ED. mw2 Signatures: Dispatcher [employer] EDMS Jeanine Barksdale 3 Cheri Riojas MD MD [facility] Kiana Genao 2 Au-StageNaomie pollard RN RN cagle Fillers, Clarisa, RN RN sf1 Corrections: (The following items were deleted from the chart) 13:42 13:11 BP 127 / 76; Pulse 99bpm; Resp 18bpm; Pulse Ox 99% RA; dh3 cagle
--- NOTE | 2021-05-05 14:20 | P.HP ---
Certification for Inpatient Patient admitted to: Observation With expected LOS: <2 Midnights Patient will require the following post-hospital care: Home Health Services Practitioner: I am a practitioner with admitting privileges, knowledge of patient current condition, hospital course, and medical plan of care. 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 She states patient has also had difficulty with speaking which is progressive since the last 2 days. She said patient had baseline difficulty with performing activities but appeared to have been markedly tired and weakness of much worsened since the last 2 days. On arrival in the ED he was noted with marked elevated blood pressure with systolic in the 170s and diastolic in the 120s. He was given hydralazine with minimal improvement. He has been admitted for observation for blood pressure control as well as new mental status change. Patient is able to answer questions well moving his head bed fairly focal. He is only able to say yes or no to questions with much effort. He follows with his care at [facility]. Head CT shows only postsurgical changes with no acute changes. EKG is unremarkable. Urinalysis is within normal range Allergies No Known Allergies Allergy (Unverified 11/03/18 11:43) Home medications list reviewed: Yes - Past Medical/Surgical History Has patient received pneumonia vaccine in the past: No Diabetic: No -: Right temporal brain mass -: Brain mass resection -: Chronic tobacco -: Hypertension -: bph -: Status post brain mass resection - Social History Smoking Status: Current every day smoker Smoking therapy provided: Yes Patient receptive to therapy: Yes Alcohol use: No CD- Drugs: No Caffeine use: No Place of Residence: Home Review of Systems is unable to be obtained (Due to slurred speech) Physical Examination - Physical Exam General: Alert, In no apparent distress, Oriented x3 HEENT: Atraumatic, Normocephalic, PERRLA Respiratory: Clear to auscultation bilaterally, Normal air movement Cardiovascular: No edema, Normal pulses, Regular rate/rhythm, Normal S1 S2 Gastrointestinal: Normal bowel sounds, Soft and benign, Non-distended Musculoskeletal: No clubbing, No swelling Neurological: Abnormal speech External genitalia: No edema, No lesions - Studies Laboratory Data (last 24 hrs) 05/05/21 10:31: Sodium 140, Potassium 4.1, BUN 17, Creatinine 0.78, Glucose 82, Total Bilirubin 1.1 H, AST 28, ALT 63, Alkaline Phosphatase 59, Lipase 124 05/05/21 10:31: WBC 7.70, Hgb 14.0, Hct 41.1, Plt Count 77 L Assessment and Plan - Plan Uncontrolled hypertensionwith possible hypertensive urgency History of BPH Recent right temporal mass resection On chemotherapy Altered mental status will new onset weakness/slurred speech Plan We will admit patient to observation We will admit to telemetry Add hydralazine to regimen Hold metoprolol for now since borderline bradycardia Moderate improvement in blood pressure with IV hydralazine x1, monitor with as needed doses We do nicotine for tobacco use history, need for tobacco cessation discussed Given slurred speech as well as progressive weakness, follow with blood pressure control if still persistent will obtain MRI of the brain as well as neurology consult Use of chemotherapy and Decadron may be causing patient uncontrolled blood pressure, follow DVT prophylaxis with subcutaneous heparin Advanced directivefull code Discharge Plan: Home Plan to discharge in: 48 Hours - Advance Directives Does patient have a Living Will: No Does patient have a Durable POA for Healthcare: No Physician Review: Patient Assessed, Agree with Above Assessment and Plan Time Spent Managing Pts Care (In Minutes): 70
[2021-05-05] MEDS ORDERED: HYDRALAZINE HCL 20 MG/ML VIAL IV PRN (14:25)
[2021-05-05] MEDS: HYDRALAZINE HCL 25 MG TABLET PO SCH ×2 (14:27→21:23)
[2021-05-05] MEDS ORDERED: ALBUTEROL 2.5 MG/3 ML NEB SOL NEB PRN (14:28)
[2021-05-05] MEDS ORDERED: ACETAMINOPHEN 500 MG TAB PO PRN (14:28)
[2021-05-05] MEDS ORDERED: ONDANSETRON 4 MG/2 ML VIAL IV PRN (14:28)
[2021-05-05] MEDS: AMLODIPINE 5 MG TAB PO SCH (15:00)
[2021-05-05] MEDS ORDERED: HYDRALAZINE HCL 10 MG TABLET ONE (15:03)
[2021-05-05] MEDS ORDERED: HYDRALAZINE HCL 25 MG TABLET ONE (15:05)
--- NOTE | 2021-05-05 16:39 | RAD REPORT ---
EXAM DESCRIPTION: MRI - Brain W/Wo Cont - 05/05/2021 4:18 pm CLINICAL HISTORY: new slurred speech , hx pf brain tumore resection Headache, drowsiness COMPARISON: Head Brain Wo Cont dated 05/05/2021; Brain W/Wo Cont dated 11/03/2018 TECHNIQUE: Multi-sequence, multiplanar MR imaging of the brain was performed with contrast. FINDINGS: There are multiple intracranial mass is present that demonstrate incomplete but definitive enhancement. 19 x 11 mm lesion is detected posterior aspect of the right temporal lobe abutting the right ventricular trigone. 23 x 17 mm subtly enhancing intra-axial mass involving head of the caudate on the right. 22 x 11 mm irregularly enhancing lesion abutting the body of the left lateral ventricl e. [place] centrally necrotic enhancing mass measuring 15 x 10 mm with adjacent small focus of enhance ment medially measuring 6 mm in the left frontal lobe. Extensive postsurgical changes are present in the right temporal lobe. No acute hemorrhage is seen. N o significant midline shift. IMPRESSION: Multiple areas of enhancing intra-axial mass lesions bilaterally as detailed compatible with neoplasia. No acute hemorrhage or midline shift.
[2021-05-05] MEDS ORDERED: TAMSULOSIN 0.4 MG SR CAP PO SCH (21:00)
[2021-05-05] MEDS: FAMOTIDINE 20 MG TAB PO SCH (21:23)
[2021-05-06 02:29] VITALS: BMI 22.4
--- NOTE | 2021-05-06 06:02 | P.PN ---
Date of Service: 05/06/21 Subjective: No significant change since yesterday Not following commands, concern for aspiration when trying some liquids today ROS: Unable to be obtained Physical exam GEN: awake, nods yes, but not appropriate, NAD HEENT: Normal conjunctiva, sclera anicteric, EOMI CV: Regular rate and rhythm, no edema Pulm: Nonlabored respirations on room air ABD: Soft, nontender, nondistended Neuro: unable to follow commands, moves all 4 extremities spontaneously, se emingly not understanding what i am saying, does not open mouth / stick out tongue Problem List Uncontrolled hypertension, possible hypertensive urgency Acute encephalopathy, unclear etiology Aphasic Brain cancer, 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 MRI done yesterday, shows an oblong centrally necrotic enhancing mass measuring 15 x 10 mm with adjacent small focus of enhancement in the left frontal lobe Briefly discussed with neurology, poor prognosis with a necrotic enhancing mass Currently do not have access to patient's prior MRIs, have called and left a message for the patient's oncologist to further discuss Currently patient unable to follow commands, unable to open mouth, high risk of aspiration N.p.o., IV fluids IV steroids to potentially decrease inflammation IV Keppra for seizure precaution will try to obtain prior MRIs for comparison Both myself and family have reached out contact patient's oncologist, awaiting response Currently, appears to have poor prognosis, will see if patient has any improvement over the next days Speech therapy consulted, to evaluate on Saturday and sister at bedside, after discussion, patient's CODE STATUS has been changed to DNR currently do not want dobhoff, they will readdress in 1-2 days Code: DNR Dispo: poor prognosis, home, possibly with home hospice Time Spent Managing Pts Care (In Minutes): 35
[2021-05-06 06:57] LABS: Absolute Lymphocytes (CBC) 1.3 K/uL (0.7-4.9); Hematocrit 42.6 % (39.6-49.0); Lymphocytes % 15.9 % (15.3-44.8); MPV 6.4 fL (7.6-11.3)
[2021-05-06 07:13] LABS: BUN Blood Urea Nitrogen 14 mg/dL (7-18); Bicarbonate 25 mmol/L (21-32); Glucose Level 98 mg/dL (74-106); Magnesium 2.2 mg/dL (1.8-2.4); Potassium 3.6 mmol/L (3.5-5.1); Sodium Level 140 mmol/L (136-145)
[2021-05-06] MEDS ORDERED: dexAMETHasone 4 MG TAB PO SCH (09:00)
[2021-05-06] MEDS: HYDRALAZINE HCL 25 MG TABLET PO SCH (09:00)
[2021-05-06] MEDS ORDERED: AMLODIPINE 5 MG TAB PO SCH (09:00)
[2021-05-06] MEDS: ENOXAPARIN 40 MG/0.4 ML SQ SCH (09:20)
[2021-05-06] MEDS: FAMOTIDINE 20 MG TAB PO SCH (09:50)
[2021-05-06] MEDS: AMLODIPINE 5 MG TAB PO SCH (09:50)
[2021-05-06] MEDS: D5 0.45 NS 1,000 ML IV SCH (14:25)
[2021-05-06] MEDS: levETIRAcetam 500 MG in NA CHLORIDE 0.9% 100 ML IV SCH (14:26)
[2021-05-06] MEDS: NICOTINE 7 MG/PAT TD SCH (14:27)
[2021-05-06] MEDS: dexAMETHasone 4 MG/ML VIAL IV SCH (18:50)
[2021-05-07] MEDS: D5 0.45 NS 1,000 ML IV SCH ×3 (01:20→18:21)
[2021-05-07] MEDS: levETIRAcetam 500 MG in NA CHLORIDE 0.9% 100 ML IV SCH ×3 (01:21→20:42)
[2021-05-07] MEDS: dexAMETHasone 4 MG/ML VIAL IV SCH ×3 (02:35→17:01)
--- NOTE | 2021-05-07 06:13 | P.PN ---
Date of Service: 05/07/21 Subjective: No significant change, stable Able to stand at bedside with physical therapy Not following commands [facility] questions this morning states he has been more sleepy ROS: Unable to be obtained Physical exam GEN: awake, turns head towards me when I say his name, doesn't respond further HEENT: Normal conjunctiva, sclera anicteric CV: Regular rate and rhythm, no edema Pulm: Nonlabored respirations on room air ABD: Soft, nontender, nondistended Neuro: unable to follow commands, moves all 4 extremities spontaneously, seemingly not understanding what i am saying Problem List Acute encephalopathy, unclear etiology Uncontrolled hypertension, possible hypertensive urgency Aphasic Brain cancer, 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 MRI: oblong centrally necrotic enhancing mass measuring 15 x 10 mm with adjacent small focus of enhancement in the left frontal lobe Briefly discussed with neurology, poor prognosis with a necrotic enhancing mass prior MRIs show progressive disease, overall poor prognosis to begin with - discussed with patient's neuro-oncologist. discussions of hospice were brought up previously Currently patient unable to follow commands, unable to open mouth, high risk of aspiration N.p.o., IV fluids IV steroids to potentially decrease inflammation IV Keppra for seizure precaution Speech therapy consulted, to evaluate on Saturday and sister at bedside, after discussion, patient's CODE STATUS has been changed to DNR on 05/06 currently do not want dobhoff, they will readdress in the next day or so EEG tomorrow r/o seizure; does not appear to be having seizure activity, but at risk with this multiple lesions Code: DNR Dispo: poor prognosis, home, possibly with home hospice Time Spent Managing Pts Care (In Minutes): 35
[2021-05-07 06:33] LABS: Hematocrit 41.1 % (39.6-49.0); MPV 7.1 fL (7.6-11.3); RBC Red Blood Cell Count 4.31 M/uL (4.33-5.43)
[2021-05-07 06:56] LABS: ALT/SGPT 98 U/L (12-78); AST/SGOT 54 U/L (15-37); Albumin 2.6 g/dL (3.4-5.0); Alkaline Phosphatase 62 U/L (45-117); BUN Blood Urea Nitrogen 17 mg/dL (7-18); Bicarbonate 20 mmol/L (21-32); Bilirubin Total 1.2 mg/dL (0.2-1.0); Glucose Level 136 mg/dL (74-106); Magnesium 2.3 mg/dL (1.8-2.4); Potassium 4.3 mmol/L (3.5-5.1); Protein, Total 5.5 g/dL (6.4-8.2); Sodium Level 140 mmol/L (136-145)
[2021-05-07] MEDS: ENOXAPARIN 40 MG/0.4 ML SQ SCH (08:58)
[2021-05-07] MEDS ORDERED: ALBUTEROL 2.5 MG/3 ML NEB SOL NEB PRN (09:00)
[2021-05-07] MEDS: NICOTINE 7 MG/PAT TD SCH (09:00)
[2021-05-07] MEDS ORDERED: INFLUENZA VACCINE (for 6+ mo) 0.5 ML DOSE IMVAC ONE (09:00)
[2021-05-07] MEDS: MORPHINE 2 MG/ML SYR IV PRN (11:59)
[2021-05-08] MEDS: dexAMETHasone 4 MG/ML VIAL IV SCH ×3 (00:37→16:34)
[2021-05-08 05:42] LABS: Absolute Lymphocytes (CBC) 0.4 K/uL (0.7-4.9); Hematocrit 40.5 % (39.6-49.0); Lymphocytes % 7.2 % (15.3-44.8); MPV 6.9 fL (7.6-11.3); RBC Red Blood Cell Count 4.14 M/uL (4.33-5.43)
[2021-05-08 05:54] LABS: BUN Blood Urea Nitrogen 21 mg/dL (7-18); Bicarbonate 23 mmol/L (21-32); Glucose Level 133 mg/dL (74-106); Magnesium 2.4 mg/dL (1.8-2.4); Potassium 4.4 mmol/L (3.5-5.1); Sodium Level 140 mmol/L (136-145)
--- NOTE | 2021-05-08 06:06 | P.PN ---
Date of Service: 05/08/21 Subjective: no change ROS: Unable to be obtained Physical exam GEN: awake, turns head towards me when I say his name, doesn't respond further HEENT: Normal conjunctiva, sclera anicteric CV: Regular rate and rhythm, no edema Pulm: Nonlabored respirations on room air ABD: Soft, nontender, nondistended Neuro: unable to follow commands, moves all 4 extremities spontaneously Problem List Acute encephalopathy, secondary to progression of brain cancer Uncontrolled hypertension, possible hypertensive urgency Aphasic Brain cancer, unsure of type on chemotherapy s/p right temporal mass resection MRI: oblong centrally necrotic enhancing mass measuring 15 x 10 mm with adjacent small focus of enhancement in the left frontal lobe Briefly discussed with neurology, poor prognosis with a necrotic enhancing mass prior MRIs show progressive disease, overall poor prognosis to begin with - discussed with patient's neuro-oncologist. discussions of hospice were brought up previously Currently patient unable to follow commands, unable to open mouth, high risk of aspiration spoke to neuro-oncologist this morning long discussion with , and sister present as well. Decided to pursue home hospice Code: DNR Dispo: poor prognosis, home hospice professor of social work consulted Time Spent Managing Pts Care (In Minutes): 35
[2021-05-08 07:52] LABS: Blood Morphology Comment NOT SEEN (NOT SEEN); Platelet Estimate DECR
[2021-05-08] MEDS: levETIRAcetam 500 MG in NA CHLORIDE 0.9% 100 ML IV SCH ×2 (09:14→21:04)
[2021-05-08] MEDS: NICOTINE 7 MG/PAT TD SCH (09:15)
[2021-05-08] MEDS: MORPHINE 2 MG/ML SYR IV PRN ×3 (10:02→21:04)
[2021-05-08] MEDS: D5 0.45 NS 1,000 ML IV SCH (12:20)
[2021-05-09] MEDS: dexAMETHasone 4 MG/ML VIAL IV SCH ×2 (01:36→09:00)
[2021-05-09 02:23] VITALS: O2SAT 94
[2021-05-09] MEDS: MORPHINE 2 MG/ML SYR IV PRN (08:26)
[2021-05-09] MEDS: NICOTINE 7 MG/PAT TD SCH ×2 (08:26→08:31)
[2021-05-09] MEDS: levETIRAcetam 500 MG in NA CHLORIDE 0.9% 100 ML IV SCH ×2 (08:30→09:03)
[2021-05-09 08:57] VITALS: TEMP 97.1
[2021-05-09 12:07] VITALS: BP 176/108
--- NOTE | 2021-05-09 13:11 | P.DS ---
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 Spouse stated patient had baseline difficulty with performing activities but appeared to have been markedly tired and weak of much as well as increasing confusion. On arrival in the ED he was noted with marked elevated blood pressure with systolic in the 170s and diastolic in the 120s. He was given hydralazine with minimal improvement. Head CT showed only postsurgical changes with no acute changes. EKG is unremarkable. Urinalysis is within normal range. Patient admitted for further management. 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 His mental status continued to decline. MRI of the brain demonstrated oblong centrally necrotic enhancing mass measuring 15 x 10 mm with adjacent small focus of enhancement in the left frontal lobe. Poor prognosis. Progressing brain cancer despite chemotherapy. Patient mental status declined to the point he became unresponsive with intermittent gurgling respiration. Family decided to pursue hospice. Hospice evaluated the patient and he is currently accepted to home with hospice. Code: DNR Vital Signs/Physical Exam: Temp Pulse Resp BP Pulse Ox 97.1 F 70 14 176/108 H 98 05/09/21 12:00 05/09/21 12:00 05/09/21 12:00 05/09/21 12:00 05/09/21 12:00 General: Unresponsive, Other HEENT: Mucous membr. moist/pink Neck: Supple Respiratory: Clear to auscultation bilaterally, Normal air movement Cardiovascular: Regular rate/rhythm, Normal S1 S2 Gastrointestinal: Soft and benign, Non-distended Musculoskeletal: No swelling Integumentary: No rashes Neurological: Other (Unresponsive) Laboratory Data at Discharge: WBC 5.80 K/uL (4.3-10.9) 05/08/21 05:10 Hgb 14.0 g/dL (13.6-17.9) 05/08/21 05:10 Hct 40.5 % (39.6-49.0) 05/08/21 05:10 Plt Count 75 K/uL (152-406) L 05/08/21 05:10 Sodium 140 mmol/L (136-145) 05/08/21 05:10 Potassium 4.4 mmol/L (3.5-5.1) 05/08/21 05:10 BUN 21 mg/dL (7-18) H 05/08/21 05:10 Creatinine 0.95 mg/dL (0.55-1.3) 05/08/21 05:10 Glucose 133 mg/dL (74-106) H 05/08/21 05:10 Magnesium 2.4 mg/dL (1.8-2.4) 05/08/21 05:10 Total Bilirubin 1.2 mg/dL (0.2-1.0) H 05/07/21 06:12 AST 54 U/L (15-37) H 05/07/21 06:12 ALT 98 U/L (12-78) H 05/07/21 06:12 Alkaline Phosphatase 62 U/L (45-117) 05/07/21 06:12 Lipase 124 U/L (73-393) 05/05/21 10:31 Activity: Bedrest Followup: NONE,NONE [Primary Care Provider] - Time spent managing pt's care (in minutes): 38
--- NOTE | 2021-05-09 17:10 | CON ---
Reason For Consultation: Because of multiple metastatic tumors to the brain. History Of Present Illness: Mr. 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 He has been treated with every 2 weeks along with Decadron. His noted worsening ability to communicate, could not speak or appreciate what was going on around him in addition to worsening blood pressure and his symptoms h ave been present at least 2 or 3 days prior to his admission. Further, he was diffusely weak, unable to mobilize. His head CT scan identified postsurgical changes from partial tumor resection and his brain MRI showed multiple areas of enhancing intra-axial mass lesions bilaterally including a 19 x 11 mm lesion in the posterior aspect of the right temporal lobe abutting the right ventricle trigone. A 23 x 17 mm enhancing lesion of the head of the caudate on the right and a 22 x 11 mm irregular enha ncing lesion abutting the left lateral ventricle. There is an oblong necrotic enhancing lesion of 15 x 10 mm, adjacent focus of enhancement measuring 6 additional mm in the left frontal lobe. Furtherm ore, there are extensive postsurgical changes in the right temporal lobe. There were no hemorrhagic areas in any of the tumors. The patient's family denies patient having any seizure-like activity, bu t he has been on Keppra 500 mg twice daily and is on Decadron 4 mg every 8 hours. Past Medical History: As noted including hypertension, chronic tobacco use, benign prostatic hypertr ophy. Past Surgical History: Status post right temporal tumor resection. Allergies: NO KNOWN DRUG ALLERGIES. Family History: Noncontributory. Social History: Patient smokes cigarettes on a daily basis. No alcohol use. He resides at home wit h his . His sister also in the room at the time of my evaluation. Medications: Decadron 4 mg every 8 hours, albuterol nebulizer 2.5 mg every 6 hours, Keppra 500 mg ev antonia 12 hours, nicotine patch 7 mg, morphine mg every 8 hours, Zofran 4 mg every 8 hours. Review of Systems: Patient is unable to give one, unable to communicate in any meaningful way. Physical Examination: Vital Signs: Blood pressure 140 to 188 over 105 to 123, pulse 65 to 69, respiratory rate 12 to 19, t emperature 97.6. Oxygen saturation 94% room air. Weight 175 pounds, height 6 feet 2 inches, BMI 22. General: Mr. Wing is lying in bed. He does have spontaneous eye opening, partially tracks sound, moves the arms and legs very little. He appears to be in no acute distress. HEENT: He does appear to be normocephalic and atraumatic. Sclerae are anicteric. Oropharynx moist. Neck: Supple. Chest: Clear. Extremities: Show no significant edema or cyanosis. Neurological: He has no asymmetries of the face, arm, and leg. He has increased tone in upper and l ower extremities. Increased reflexes in upper extremities. Unable to assess any coordination, stren gth, or gait. Laboratory Studies: White blood cell count 5.8, hemoglobin 14, creatinine 0.95, AST 54, ALT 98, calc ium 8.0, magnesium 2.4. Urinalysis unremarkable. COVID-19 test is negative. Assessment: Mr. iWng is a 61-year-old patient with multiple metastatic tumors to his brain includ ing necrotic tumors in left frontal region producing a marked expressive aphasia. He even has diffic ulty comprehending speech and is not following any instructions or commands. The patient's original tumor was many years ago when he has had a partial resection. He has a very poor prognosis for any s ignificant recovery despite his chemotherapy and steroids. This was discussed with the patient's fam staci and primary care physician in charge of the patient while hospitalized. The patient's family opt ed for hospice care and he is currently in the process of getting that arranged. Plan: 1.Hospice care. 2.Continue the steroids and Keppra as indicated. 3.The patient did not want tube feedings. The family understands that without hydration or feeding, the patient is not likely to last more than a week or perhaps 10 days. The family does understand t hat and agrees with that, and will proceed with hospice care. LB/MODL Voice ID: [id number] Report ID: [id number]
== END 2021-05-09 16:46 | disposition hospice, home (50) | DRG 55 ==
LOC: ER 09:22 → ERHOLD 14:44 → 2ND 19:52 → OBSVTOIN 05-06 19:01
PROVIDERS: ADMIT Internal Medicine; ATTEND Internal Medicine
DX: C71.1 Malignant neoplasm of frontal lobe (principal); R47.01 Aphasia; G13.1 Other systemic atrophy primarily affecting central nervous system in neoplastic disease; I16.0 Hypertensive urgency; N40.0 Benign prostatic hyperplasia without lower urinary tract symptoms; R53.1 Weakness; D69.59 Other secondary thrombocytopenia; T45.1X5A Adverse effect of antineoplastic and immunosuppressive drugs, initial encounter; R00.1 Bradycardia, unspecified; Z66 Do not resuscitate; F17.210 Nicotine dependence, cigarettes, uncomplicated; Z71.6 Tobacco abuse counseling; Z98.890 Other specified postprocedural states; Z79.899 Other long term (current) drug therapy; Z20.822 Contact with and (suspected) exposure to COVID-19
CPT/HCPCS: 36415; 70450; 70553; 71045; 80048; 80053; 81003; 81015; 83690; 83735; 85025; 85027; 96374; 97162; 97530; 99285; A9577; G0378; J0360; J1100; J1650; J1953; J2270; J7030; J7799; J8540; U0003